=== PATIENT | male | born 1955 | race Caucasian/White ===

== ENCOUNTER → 2018-01-05 12:44 | Outpatient (CLI) | payer MEDICAID, SELFPAY ==
--- NOTE | 2018-01-05 12:46 | RAD_ITS ---
STUDY: X-RAY - RIGHT WRIST REASON FOR EXAM: Wrist pain for 5 months after lifting a heavy object. TECHNIQUE: 3 view(s) of the wrist were obtained. COMPARISON: None. FINDINGS: Normal visualized distal radius and ulna. Normal radiocarpal articulation. Normal distal radioulnar articulation. Normal carpal bones. Normal carpal articulations. Normal carpometacarpal articulation of the thumb. Normal second through fifth carpometacarpal articulations. Normal visualized metacarpal bones. The soft tissue structures are unremarkable. RAD/Wrist min 3 Views IMPRESSION: Normal x-ray examination of the right wrist. Electronically Signed: Balwinder Palomo MD at 13:50 EDT Tel , Service support ,
== END ==
PROVIDERS: Family Provider Family Medicine; PCP Family Medicine; Referring Provider Orthopaedic Surgery; Visit Provider Orthopaedic Surgery
DX: M25.531 Pain in right wrist (principal)
CPT/HCPCS: 73110

== ENCOUNTER 2018-03-05 10:00 | Outpatient (RCR) | payer MEDICAID, SELFPAY ==
--- NOTE | 2018-01-14 12:35 | HP.OTEVAL_ITS ---
Patient's Visit Information ALYX DIALLO is a 62 year old M, referred to Occupational Therapy by Reny Perry DO, with a diagnosis of TFCC tear and ECU tendinitis. Date of Evaluation: 01/14/18 Occupational Therapist: Loulou Dalton - Subjective Subjective: Arrived and noted that original injury was in July when moving large table at [employer]. He has had increased pain in wrist for last 6 months. He noted that he had x-rays to rule out break. Noted that recently had cortisone shot a week ago at Dr. Bocanegra which was first one in wrist to help decrease pain. - Pain Right Wrist 3 Pain Intensity Range: 1, 7 - Objective Objective/Observation: Mild tenderness over ECU when palpated; no edmea noted. Concerns: Insurance does no cover iontophoresis and Pt. would not like to pay out of pocket for this treatment at this time. Phonophoresis maybe alternative if medication would be covered through Pt. insurance. OT looking into this as option. - ROM Forearm: supination R 0-74, L WBL; pronation R 0-81, L WNL Wrist: flexion R 0-90, L 0-93; ext R 0-45, L 0-56 MP: WFL PIP: WFL DIP: WFL ROM Comments: radial dev R 0-15, L 0-15. ulnar dev R 0-35, L 0-25. Mild pain with movements. - Strength Wireworker Supervisor: R 60, L 59 Lateral Pinch: R 16, L 18 Tripod Pinch: R 12, L 13 Tip-to-Tip Pinch: R 8, L 8 - Sensation Sensation Comments: Denies numbness and tingling in B hands. Notes if happens is often due to back being out. 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 Goal:: Alyx to have no more than 1/10 pain with all fx activities 2/3 trials 75% of the time to promote increased ROM and participation in ADL/IADls by d/c. Goal:: Alyx to be (I) to complete proper wrist mechanics and ergonomics to promote increased performance and decreased risk of reinjury 4/5 trials 80% of the time by d/c. Goal:: Alyx to be (I) to return to full use of R wrist and hand for all ADl/IADls 100% of the time to promote (i) by d/c. Goal:: Alyx to be (I) to complete HEp consistently as instructed 4/5 trials 80% of the time to promote increased strength and stability of wrist to help decrease pain and promote fx by d/c. - Rehabilitation General Assessment: Alyx had OT evaluation today 01/14/18. Original injury was in July and noted that recently has cortisone injection to ulna side of wrist after seeing Dr. Perry last week. Injection has helped alleviate symptoms, but further therapy needed to promote increased stability. ROM, and strength of R dominant hand to reduce risk of symptoms returning and increased pain occurring. Ot to work on increased fx of hand to promote returning to PLOF. Rehabilitation Potential: Good - Anticipated Interventions Anticipated Interventions: A/AAROM/PROM, Strengthening, Modalities, Joint Protection/Energy Conservation, Ergonomic Education, Fine Motor Coord/Carlos Manuel, AD L Training, Caregiver Training, Home Program - Visit Plan Frequency: 2-3x /Week Duration: 4 Weeks General Plan: OT to work on ROM, strength, stability of wrist to promote increased ability to complete ADl/IADLs at PLOF and with minimal pain. TEXT: Thank you for the opportunity to evaluate your patient. For Medicare and Medicare HMO plans, please review the plan of care and approve it. It will need to be FAXED BACK to us at [phone] for Medicare purposes. Please let me know if there are questions or concerns regarding this plan of care. Physician Signature: Date:
--- NOTE | 2018-03-05 10:45 | HP.OTDCSUM ---
HP - OT D/C Summary It has been my pleasure to treat YAO DIALLO under orders from Reny Perry DO, for the diagnosis of TFCC tear and ECU tendinitis for a total of 6 visit(s). Please see the following information for a summary of their discharge status. - Overall Improvement % Improvement: 80 - Objective Objective/Function: Completed reassessment on this date of 03/05/18. ROM: Wrist: -flexion: R 0-89, L 0-85. -extension: R 0-45, L 0-60. -radial deviation: R 0-18, L 0-17. -ulnar deviation: R 0-40, l 0-30. - supination: R WNL, L WNL. Strength: marble supervisor from flexed position: R 68, L 68. marble supervisor from extended: R 86, L 80. Lateral: R 19, L 18. Tripod: R 17, L 11. Pincer: R 10, L 8. Denies numbness or tingling. Some pain grimace noted with gripping. He has progressed towards goals. - Goals Patient Goals: Regain Strength, Decrease Pain, Return to Work, Use Hand/Wrist/Arm Normally Again, Sleep Better, Be More Independent in ADLS, Resume Former Household Responsibilities (Cooking,Cleaning,Yard, etc.), Resume Hobbies Goal:: Yao to increase R marble supervisor by 10-15 lbs to promote increased stability and strength of R wrist for ADL/IADls and decrease pain and reinjury by time of d/c. - MEANT Goal:: Yao to have no more than 1/10 pain with all fx activities 2/3 trials 75% of the time to promote increased ROM and participation in ADL/IADls by d/c. Goal:: Yao to be (I) to complete proper wrist mechanics and ergonomics to promote increased performance and decreased risk of reinjury 4/5 trials 80% of the time by d/c. Goal:: Yao to be (I) to return to full use of R wrist and hand for all ADl/IADls 100% of the time to promote (i) by d/c. - MEANT. - He is compelting tasks even if causing pain. Educated to stop and rest when pain occurs. Goal:: Yao to be (I) to complete HEp consistently as instructed 4/5 trials 80% of the time to promote increased strength and stability of wrist to help decrease pain and promote fx by d/c.- MEANT - Plan Plan: Pt. will be d/c'd today. He attended 6 of 8-12 scheduled appointments over the course of 49 days. He is starting to have pain again in R wrist. Pain in general has been variable over the course of treatment. Previously had cortisone shot. Due to increased pain he is to return to doctor. - D/C Information If there are questions or concerns regarding this patient's occupational therapy, please fell free to call me at [phone]. Thank you for the referral of this patient. Sincerely, Loulou Dalton
== END 2018-03-05 19:00 | disposition home or self-care (01) ==
LOC: OT 10:00
PROVIDERS: Family Provider Family Medicine; PCP Family Medicine; Referring Provider Orthopaedic Surgery; Visit Provider Orthopaedic Surgery
DX: S63.591D Other specified sprain of right wrist, subsequent encounter (principal); M65.849 Other synovitis and tenosynovitis, unspecified hand
CPT/HCPCS: 97035; 97110; 97140; 97166; 97168; 97530

== ENCOUNTER → 2019-06-06 10:07 | Outpatient (CLI) | payer MEDICAID, SELFPAY ==
--- NOTE | 2019-06-06 10:08 | MRI_ITS ---
STUDY: MRI RIGHT WRIST WITHOUT CONTRAST REASON FOR EXAM: Right wrist pain extending up forearm, injury in July 2017. TECHNIQUE: Standardized fat and water weighted pulse sequences were obtained in all 3 orthogonal planes. COMPARISON: Radiographs 01/05/2018. FINDINGS: Normal visualized distal radius and ulna. Normal distal radioulnar articulation (DRUJ). Normal triangular fibrocartilaginous complex (TFCC). Normal carpal bones. Normal radiocarpal, intercarpal and midcarpal articulations. Normal pisotriquetral articulation. Normal visualized interosseous scapholunate ligament. Normal extensor tendons. Normal flexor tendons. Normal carpal tunnel with a normal median nerve. Normal carpometacarpal articulation of the thumb. Normal second through fifth carpometacarpal articulations. Normal visualized metacarpal bones. There is no demonstrated soft tissue abnormality. MRI/Upper Ext Joint Only(Routine) IMPRESSION: Unremarkable MRI of the right wrist. Electronically Signed: Balwinder Palomo MD at 12:44 EST Tel , Service support ,
== END ==
PROVIDERS: PCP Family Medicine; Referring Provider Physician Assistant; Visit Provider Physician Assistant
DX: M77.11 Lateral epicondylitis, right elbow (principal); M25.531 Pain in right wrist; S69.81XD Other specified injuries of right wrist, hand and finger(s), subsequent encounter
CPT/HCPCS: 73221

== ENCOUNTER 2021-05-02 16:05 | Outpatient (CLI) | payer MEDICAID, SELFPAY ==
--- NOTE | 2021-05-02 16:06 | MRI_ITS ---
STUDY: MRI RIGHT WRIST WITHOUT CONTRAST REASON FOR EXAM: Ulnar sided right wrist pain, right wrist injury 02/10/2021. TECHNIQUE: Standardized fat and water weighted pulse sequences were obtained in all 3 orthogonal planes. COMPARISON: Radiographs 02/18/2021. FINDINGS: There is a very mild bone contusion of the ulnar styloid process (inversion recovery coronal image 13). Normal distal radius. Normal distal radioulnar articulation (DRUJ). Normal triangular fibrocartilaginous complex (TFCC). There is a very mild bone contusion of the triquetrum (inversion recovery coronal images 11, 12). Otherwise, unremarkable carpal bones. Normal radiocarpal, intercarpal and midcarpal articulations. Normal pisotriquetral articulation. Normal visualized interosseous scapholunate ligament. There is a very small volume of fluid in the sixth dorsal compartment (inversion recovery axial images 21-23). Normal flexor tendons. Normal carpal tunnel with a normal median nerve. Normal carpometacarpal articulation of the thumb. Normal second through fifth carpometacarpal articulations. Normal visualized metacarpal bones. There is a small ossicle adjacent to the ulnar styloid process (gradient coronal image 22). MRI/Upper Ext Joint Only(Routine) IMPRESSION: Very mild bone contusions of the ulnar styloid process and triquetrum. Very mild extensor carpi ulnaris tenosynovitis. Electronically Signed: Balwinder Palomo MD at 11:43 EST ,
== END 2021-05-02 23:59 | disposition short-term general hospital (02) ==
LOC: MRI 16:06
PROVIDERS: PCP Family Medicine; Visit Provider Orthopaedic Surgery
DX: S69.81XS Other specified injuries of right wrist, hand and finger(s), sequela (principal)
CPT/HCPCS: 73221

== ENCOUNTER → 2021-10-04 | Outpatient (CLI) | payer MEDICARE, MEDICAID, SELFPAY ==
[2021-10-04 12:29] LABS: Absolute Lymphocyte Count 1.67 X10^3/uL (0.83-4.51); Absolute Neutrophil Count 4.3 X10^3/uL (2.0-7.7); Basophil# 0.04 X10^3/uL; Basophil% 0.6 % (0-1); Eosinophil# 0.07 X10^3/uL; Eosinophils% 1.1 % (0-5); Hemoglobin 16.2 g/dL (13.0-16.5); Lymphocyte # 1.67 X10^3/ul (0.83-4.51); Lymphocyte % 25.4 % (19-41); Mean Corp Hgb Conc 33.8 g/dL (32-36); Mean Corpuscular Hgb 30.2 pg (27.0-32.0); Mean Corpuscular Volume 89.6 fL (80-94); Mean Platelet Vol. 9.5 fl (6.2-12.0); Monocyte# 0.43 X10^3/uL; Monocyte% 6.5 % (0-10); NRBC Flagged by Analyzer 0 % (0-5); Neutrophil # 4.32 X10^3/uL (2.7-7.7); Neutrophil % 65.6 % (47-70); Platelet Count 235 K/mm3 (150-450); RBC Distribution Width CV 12.8 % (11.6-14.6); RBC Distribution Width SD 41.9 fl (35.1-43.9); Red Blood Count 5.36 M/mm3 (4.6-6.2); White Blood Count 6.6 K/mm3 (4.4-11.0)
[2021-10-04 12:37] LABS: Erythrocyte Sedimentation Rate 12 mm/hr (0-20)
[2021-10-04 13:17] LABS: ALB/GLOB Ratio 1.1 RATIO (0.9-2.4); AST(SGOT) 21 U/L (15-37); Alanine Aminotransfer ALT/SGPT 26 U/L (16-61); Albumin, Serum 3.8 g/dL (3.2-5.0); Alkaline Phosphatase 95 U/L (45-117); Anion Gap 8 (5-15); BUN 14 mg/dL (7-18); CRP < 2.90 mg/L (0.0-3.0); Calcium,Total 9.1 mg/dL (8.5-10.1); Chloride 107 mmol/L (98-107); Creatinine, Serum 0.93 mg/dL (0.70-1.30); EST Glomerular Filtration Rate 86 mL/min (>60); Est Glom Filt Rate - Afr Amer 104 mL/min (>60); Ferritin 110 ng/mL (26-388); Globulin 3.4 g/dL (2.2-4.2); Glucose 95 mg/dL (74-106); LDH 175 U/L (87-241); Protein, Total 7.2 g/dL (6.4-8.2); Sodium Level 139 mmol/L (136-145)
[2021-10-06 16:07] LABS: Endomysial Antibody IgA Negative (Negative)
[2021-10-06 18:07] LABS: Immunoglobulin A 130 mg/dL (61-437); t-Transglutaminase IgA <2 U/mL (0-3)
[2021-10-08 13:07] LABS: Anti-Centromere B Ab <0.2 AI (0.0-0.9); Anti-Chromatin <0.2 AI (0.0-0.9); Anti-Jo <0.2 AI (0.0-0.9); Anti-Scleroderma-70 AB <0.2 AI (0.0-0.9); RNP Ab <0.2 AI (0.0-0.9); SJOGREN'S Anti-SS-A test < 0.2 AI (0.0-0.9); SJOGREN'S Anti-SS-B test < 0.2 AI (0.0-0.9); Smith Ab <0.2 AI (0.0-0.9)
[2021-10-08 16:27] LABS: Anti-dsDNA Ab <1 IU/mL (0-9)
[2021-10-11 00:08] LABS: Albumin 3.8 g/dL (2.9-4.4); Alpha-1-Globulins 0.3 g/dL (0.0-0.4); Alpha-2-Globulins 0.8 g/dL (0.4-1.0); Cytoplasmic Ab (C-ANCA) <1:20 titer (Neg:<1:20); Gamma Globulin 0.6 g/dL (0.4-1.8); Immunoglobulin A 139 mg/dL (61-437); Immunoglobulin G 634 mg/dL (603-1613); Immunoglobulin M 70 mg/dL (20-172); PROEL- TOTAL PROTEIN 6.5 g/dL (6.0-8.5)
[2021-10-11 08:31] LABS: Immunoglobulin E 55 IU/mL (6-495); Perinuclear Ab (P-ANCA) <1:20 titer (Neg:<1:20)
== END | disposition home or self-care (01) ==
PROVIDERS: PCP Family Medicine; Referring Provider Internal Medicine Gastroenterology; Visit Provider Internal Medicine Gastroenterology
DX: R14.2 Eructation (principal); R19.5 Other fecal abnormalities
CPT/HCPCS: 36415; 80053; 82728; 82784; 82785; 83516; 83615; 84165; 85025; 85652; 86140; 86225; 86235; 86255; 86256; 86334

== ENCOUNTER → 2021-10-08 | Outpatient (CLI) | payer MEDICARE, MEDICAID, SELFPAY ==
[2021-10-10 15:08] LABS: Gastrin, Serum 20 pg/mL (0-115)
[2021-10-14 19:52] LABS: Calprotectin, Stool 21 ug/g (0-120); Fats, Neutral Normal (.); Fats, Total Normal (.)
[2021-10-15 13:59] LABS: Giardia Lamblia, Stool EIA Negative (Negative); Pancreatic Elastase, Fecal 338 (>200)
== END | disposition home or self-care (01) ==
PROVIDERS: PCP Family Medicine; Visit Provider Internal Medicine Gastroenterology
DX: R19.5 Other fecal abnormalities (principal); R14.2 Eructation; K58.9 Irritable bowel syndrome, unspecified; R19.7 Diarrhea, unspecified
CPT/HCPCS: 36415; 82274; 82653; 82705; 82941; 83630; 83993; 87177; 87209; 87329; 87506

== ENCOUNTER → 2023-03-10 | Outpatient (CLI) | payer MEDICARE, MEDICAID, SELFPAY ==
--- NOTE | 2023-03-10 14:50 | CT_ITS ---
EXAM: CT RIGHT LOWER EXTREMITY WITHOUT INTRAVENOUS CONTRAST, FOOT CLINICAL INDICATION: PAIN IN RIGHT FOOT TECHNIQUE: Helically acquired images were obtained of the right foot without intravenous contrast. CTDIvol = ( 15.35 ) mGy, DLP = ( 388.30 ) mGycm This CT exam was performed using one or more of the following dose reduction techniques: automated exposure control, adjustment of the mA and/or kV according to patient size, and/or use of iterative reconstruction technique. COMPARISON: No relevant prior studies available. FINDINGS: BONES/JOINTS: Unremarkable. No acute fracture. No subluxation. Normal alignment. Preservation of the joint space. No sclerotic or destructive changes. SOFT TISSUES: Unremarkable. No abnormal contrast enhancement. No radiopaque foreign body. CT/Extremity Lower without Contra IMPRESSION: No acute fracture or subluxation. Electronically Signed: Tapan Zuluaga MD at 23:01 EST ,
== END | disposition home or self-care (01) ==
PROVIDERS: PCP Family Medicine; Referring Provider Physician Assistant Surgical; Visit Provider Physician Assistant Surgical
DX: M79.671 Pain in right foot (principal); S92.151A Displaced avulsion fracture (chip fracture) of right talus, initial encounter for closed fracture
CPT/HCPCS: 73700

== ENCOUNTER → 2023-07-08 | Outpatient (CLI) | payer MEDICARE, MEDICAID, SELFPAY | END | disposition home or self-care (01) | PROVIDERS: PCP Family Medicine; Referring Provider Internal Medicine Gastroenterology; Visit Provider Internal Medicine Gastroenterology | DX: R10.9 Unspecified abdominal pain (principal); K86.89 Other specified diseases of pancreas ==

== ENCOUNTER → 2023-07-10 | Outpatient (CLI) | payer MEDICARE, MEDICAID, SELFPAY ==
[2023-07-10 12:31] LABS: Erythrocyte Sedimentation Rate 3 mm/hr (0-20)
[2023-07-10 13:32] LABS: ALB/GLOB Ratio 1.3 RATIO (0.9-2.4); AST(SGOT) 17 U/L (15-37); Alanine Aminotransfer ALT/SGPT 27 U/L (16-61); Albumin, Serum 3.8 g/dL (3.2-5.0); Alkaline Phosphatase 76 U/L (45-117); Amylase 62 U/L (25-115); Anion Gap 3 (5-15); BUN 13 mg/dL (7-18); BUN/Creat Ratio 13.4 RATIO (10-20); CRP < 2.90 mg/L (0.0-3.0); Chloride 110 mmol/L (98-107); Creatinine, Serum 0.97 mg/dL (0.70-1.30); EST Glomerular Filtration Rate 82 mL/min (>60); Est Glom Filt Rate - Afr Amer 100 mL/min (>60); Glucose 95 mg/dL (74-106); Lipase 36 U/L (13-75); Magnesium 2.3 mg/dL (1.6-2.6); Phosphorus 1.9 mg/dL (2.5-4.9); Potassium 3.9 mmol/L (3.5-5.1); Protein, Total 6.8 g/dL (6.4-8.2); Sodium Level 139 mmol/L (136-145)
[2023-07-13 16:09] LABS: Albumin 4.1 g/dL (2.9-4.4); Alpha-1-Globulins 0.2 g/dL (0.0-0.4); Alpha-2-Globulins 0.6 g/dL (0.4-1.0); Endomysial Antibody IgA Negative (Negative); Gamma Globulin 0.6 g/dL (0.4-1.8); IgG, Quant 651 mg/dL (603-1613); Immunoglobulin A 116 mg/dL (61-437); Immunoglobulin G, Subclass 1 419 mg/dL (248-810); Immunoglobulin G, Subclass 2 185 mg/dL (130-555); Immunoglobulin G, Subclass 3 13 mg/dL (15-102); Immunoglobulin G, Subclass 4 25 mg/dL (2-96); Immunoglobulin M 57 mg/dL (20-172); PROEL- TOTAL PROTEIN 6.4 g/dL (6.0-8.5); t-Transglutaminase IgA <2 U/mL (0-3)
[2023-07-17 05:07] LABS: Beef <0.10 kU/L (Class 0); Chocolate <0.10 kU/L (Class 0); Codfish <0.10 kU/L (Class 0); Corn <0.10 kU/L (Class 0); Egg, Whole <0.10 kU/L (Class 0); Milk (Cow) <0.10 kU/L (Class 0); Mussels <0.10 kU/L (Class 0); Peanut <0.10 kU/L (Class 0); Pork <0.10 kU/L (Class 0); Salmon <0.10 kU/L (Class 0); Shrimp <0.10 kU/L (Class 0); Soybean <0.10 kU/L (Class 0); Tuna <0.10 kU/L (Class 0); Wheat <0.10 kU/L (Class 0)
== END | disposition home or self-care (01) ==
LOC: LAB 11:39
PROVIDERS: PCP Family Medicine; Referring Provider Internal Medicine Gastroenterology; Visit Provider Internal Medicine Gastroenterology
DX: T78.40XA Allergy, unspecified, initial encounter (principal); K86.89 Other specified diseases of pancreas
CPT/HCPCS: 36415; 80053; 82150; 82784; 82787; 83516; 83690; 83735; 84100; 84165; 85652; 86003; 86005; 86140; 86255; 86334

== ENCOUNTER 2023-11-17 10:04 | Day surgery (SDC) | payer MEDICARE, MEDICAID, SELFPAY ==
[2023-11-17] VITALS (8 sets, daily range): BP systolic 110–144; BP diastolic 76–98; PULSE 81–89; RESP 16–18; TEMP 36.1–36.6; O2SAT 93–99; BMI 25.4
[2023-11-17] MEDS: Lactated Ringers 1,000 ML 15 ML IV (10:27)
--- NOTE | 2023-11-17 10:51 | PRE.ANES_ITS ---
ASA Classification* ASA Classification ASA Classification: 3 Assessment & Plan Anesthesia* Anesthesia Assessment Anesthesia Assessment: Discussed sedation and/or anesthesia options, risks, benefits, and alternatives with patient/parents/legal guardian/POA. Questions invited. The patient/parents/legal guardian/POA seems to understand and agrees to proceed with anesthesia plan. Reviewed the physical assessment, medical history, allergy history and patient home medications list prior to surgery/procedure/anesthetic and documented any changes. Performed airway and anesthesia risk assessments. Anesthesia Type Anesthesia Type: MAC History Source History Obtained from:: Patient and Chart Anesthesia Focused Assessment* Temperature: 98 F Pulse Rate: 83 Blood Pressure: 144/93 Respiratory Rate: 17 Pulse Ox: 99 Oxygen Delivery Method: Room Air Airway Assessment Mouth opens: >3 cm Mallampati Score: III Teeth Condition: Intact Neck Range of motion (ROM): Full ROM Pertinent Findings EKG Pertinent Findings:: February 11, 2023. Normal sinus rhythm. ECHO Pertinent Findings:: September 06, 2021. Ejection fraction is 50 to 55%. Bicuspid aortic valve. Right ventricular systolic pressure is 20 mmHg. Consults Pertinent Findings:: February 12, 2012. Dr. JOSE WHITE. Good ejection fraction. Has obstructive sleep apnea. History of palpitations but none recent. Focused Labs Anesthesia Preop lab: CBC WBC 6.8 K/mm3 (4.4-11.0) 07/08/23 15:50 RBC 4.64 M/mm3 (4.6-6.2) 07/08/23 15:50 Hgb 13.4 g/dL (13.0-16.5) 07/08/23 15:50 Hct 40.2 % (40-54) 07/08/23 15:50 Plt Count 206 K/mm3 (150-450) 07/08/23 15:50 CHEMISTRY Potassium 3.9 mmol/L (3.5-5.1) 07/10/23 12:10 Sodium 139 mmol/L (136-145) 07/10/23 12:10 Magnesium 2.3 mg/dL (1.6-2.6) 07/10/23 12:10 Phosphorus 1.9 mg/dL (2.5-4.9) L 07/10/23 12:10 BUN 13 mg/dL (7-18) 07/10/23 12:10 Creatinine 0.97 mg/dL (0.70-1.30) 07/10/23 12:10 Glucose 95 mg/dL (74-106) 07/10/23 12:10 COAG Pre-Assessment Diagnosis/Proposed Procedure Planned Operative Procedure(s): EGD Anesthesia History 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 When Was Last Pacemaker Check QUESTION #4 FULL TEXT: You/Your Family Experience fever (hyperthermia) with Anesthesia Last Oral Intake Last Oral intake: Last Oral Intake NPO since 08:00 11/17/23 10:22 Meds taken in AM with sips of water? 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 Female No 11/11/23 13:26 HX of Motion Sickness No 11/11/23 13:26 HX of N/V After Surgery No 11/11/23 13:26 Non-Smoker Yes 11/11/23 13:26 Duration of Surgery greater No 11/11/23 13:26 than 60 minutes Number of Risk Factors 1 11/11/23 13:26 PONV Score Low Risk 11/11/23 13:26 Height & Weight Height & Weight: Anesthesia: Height & Weight Height 5 ft 8 in 11/17/23 10:22 Weight: 76 kg 11/17/23 10:22 Body Mass Index (BMI) 25.4 11/17/23 10:22 Respiratory Assessment Respiratory Assessment - director of event sales: Respiratory Tract Infection Hx - director of event sales Hx Respiratory Tract Infection No 11/11/23 13:26 STOP Sleep Apnea STOP Sleep Apnea - director of event sales: STOP Sleep Apnea - director of event sales Hx Hypertension No 11/11/23 13:26 Hx Sleep Apnea Yes 11/11/23 13:26 CPAP Yes: NONCOMPLIANT 11/11/23 13:26 BIPAP No 11/11/23 13:26 Do you snore loudly (louder than talking or can be heard Do you often feel tired/ fatigued/ sleepy during daytime? Has anyone observed you stop breathing during sleep? STOP Results Positive 11/11/23 13:26 QUESTION #5 FULL TEXT : Do you snore loudly (louder than talking or can be heard through closed doors)? 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 Specify any problems Hx of Preganancy in last 3 N/A 11/11/23 13:26 Months Nurse Filling Out Transfusion DSCHRIBER 11/11/23 13:26 & Questions: Date: 11/11/23 11/11/23 13:26 Time: 13:28 11/11/23 13:26 Patient unable to answer at this time (ie. confused, unrespo /Reproduction History /Reproductive History - director of event sales: /Reproductive Hx- director of event sales Hx Now No 11/11/23 13:26 Gestational Age (in weeks): EDC: Hx Hx Para Hx Section SAB No 11/11/23 13:26 Active Medications Active Medications: Current Medications Generic Name Dose Route Start Last Admin Trade Name Freq PRN Reason Stop Dose Admin Lactated Ringer's 1,000 mls @ 15 mls/hr 11/17/23 10:30 11/17/23 10:27 IV 15 mls/hr .Q48H MARKO Administration PFSH Medical History Wears glasses Cancer Thyroid disease High cholesterol Difficulty swallowing CPAP (continuous positive airway pressure) dependence Non-smoker Cardiology follow-up encounter History of echocardiogram GERD (gastroesophageal reflux disease) Diverticulitis Colon polyp Chronic back pain Lower abdominal pain Home Medications ?Medication ?Instructions ?Recorded ?Last Taken ?Type pantoprazole 40 mg tablet,delayed 40 mg PO DAILY 05/04/20 11/16/23 History release naproxen sodium 220 mg tablet 220 mg PO Q12H PRN PRN pain 04/19/21 Unknown History (Aleve) loratadine 10 mg tablet 10 mg PO DAILY PRN PRN allergy 09/25/21 Unknown History symptoms [id number] 1 cap PO TID #90 caps 06/09/23 11/16/23 Rx 36,000-114,000-180,000 unit capsule,delay rel (Creon) pitavastatin calcium 4 mg tablet 4 mg PO DAILY 11/05/23 11/16/23 History (Livalo) Allergy/AdvReac Type Severity Reaction Status Date / Time bee venom protein (honey bee) Allergy Intermediate unk Verified 11/17/23 10:17 sulfamethoxazole (From Allergy Agitated Verified 11/17/23 10:17 Bactrim) trimethoprim (From Bactrim) Allergy Agitated Verified 11/17/23 10:17 Surgical History Hx of colonoscopy Hx of esophagogastroduodenoscopy History of tonsillectomy and adenoidectomy H/O prostatectomy Social History Smoking Status: Never smoker alcohol intake: never Review of Systems (Anesthesia) ROS Narrative System reviewed and no additional complaints, except as documented.
--- NOTE | 2023-11-17 11:46 | PCM.HP.BLA ---
History and Physical Date of Admission: 11/17/23 ALYX DIALLO, is a 68 M who presents to the office today for follow up. PMH chronic back pain; colon polyp; diverticular colon; dysphagia; ED; GERD; prostate cancer; IBS; ROBIN. Prior workup: EGD and Colonoscopy in 2014 with no abnormality, but did start protonix 40mg QHS. EGD and Colonoscopy 2018 with precancerous polyps found. EGD WNL. CT abd/pel 4.7.22 hepatic hypodensities, sub-centimeter, stable since last exam. US RUQ 5.11.22 hepatic cyst of no clinical significance. *BGI established 7.1.22 for evaluation of bloating and belching since July that has improved in the last month or two; unsure of what has changed to cause improvement. Denies trigger. Bowels are typically reddish/brown or olive green (without blood) and float, without urgency but occur 1-2 times a day. Bowels have had a recent change in stools with addition of mucous and flaky consistency and falling to the bottom of the toilet. Weight loss of approximately 10lbs since July with PCP performing cancer tumor markers that were WNL. Denies dysphagia difficulty. Biochemical CMP, CBC, ANCA, celiac, CRP, LDH, ESR, NAINA comp, GAME, ALHAJI, ferritin without pertinent abnormalities. Stool testing EP, calprotectin, lactoferrin, fecal fat, O/P, giardia, elastase, occult WNL. C.Difficile stool was formed. OV 9.23.22 Feels he is doing well at this time. Stools have been varying with periodic floating and other days mushy; typically 4 BM a day usually in the morning. Weight has been stable though he would like an increase. Current weight 169lbs and has been stable for several months. start charcoal and simethicone; short course of doxycycline OV 4.3.23 Intermittent lower abdominal discomfort/cramping without identifiable aggravating/alleviating factors. Feels BM is now normal consistency and is no longer floating. OV 10.3.23 BM continue to be regular and without difficulty without abdominal discomfort/cramping. OV 4.3.24- Pt reports he was doing well until a month ago. Started having abdominal discomfort. BM are still normal. Does not give other information about sx stating he needs to talk to the doctor. OV 8.1.24 pt reports that he has trouble expelling gas. Pt reports regular BM; denies blood in the stool. Pt states that his last upper scope was in 2017 and PCP told him it's not a bad idea to have another. Pt continues with creon and pantoprazole. ROS Const Constitutional: No fatigue, fever(s) or weight change ENT ENT: Positive for difficulty swallowing Gastro GI: Positive for bloating, difficulty swallowing, excessive flatus and nausea/dyspepsia; No abdominal pain, belching, change in bowel habits, change in stool character, coffee ground emesis, constipation, cramping, diarrhea, heartburn, feeling full early, incontinent of stools, Vomiting blood/hematemesis, Blood in stool, loose stools, Black,tarry stools, pain with swallowing, vomiting or other Musc Musculoskeletal: Positive for back pain, numbness and tingling; No joint pain Skin Skin: No yellowing of the eye or itchy eyes Neuro Neurology: Positive for numbness and tingling Psych Psychiatric: No anxiety and No depression Endo Endocrine: No fatigue or weight change Aller/Imm Allergy/Immunologic: No itchy eyes Alan/Lymp Hematologic/Lymphatic: No easy bleeding or easy bruising Exam Const General: cooperative and comfortable Nutritional Appearance: average body habitus and well nourished [facility] Head: normal to inspection Ears: hearing grossly normal bilaterally Nose: external nose normal Face and sinus: normal facial exam Mouth: oral mucosae normal Throat: posterior oropharynx normal Eyes General: appearance normal, both eyes and all related structures Neck Neck: normal visual inspection Chest Chest palpation & inspection: normal inspection of the chest and normal palpation of entire chest wall Resp Effort & Inspection: normal respiratory effort Auscultation: Bilateral: Clear to Auscultation Cardio Palpation: normal PMI Rate: regular rate Rhythm: regular rhythm GI Inspection: normal to inspection Auscultation: normal bowel sounds Percussion: normal to percussion Palpation: no hepatosplenomegaly Skin General: no rashes or lesions noted Neuro General: patient alert Extrem General: normal to inspection Psych Affect: normal affect Assessment and Plan Assessment and Plan (1) Abdominal pain: Plan: . He has been getting some intermittent bloating and nausea with frequent belching and passing gas. I told him that the differential diagnosis for that would be bacterial overgrowth, intermittent gastroparesis, inflammation of the upper GI tract because he does have some improvement with digestive enzymes. I will check blood work and likely put him on treatment for bacterial overgrowth. We will also get a gastric emptying study to evaluate the motility of the small bowel. If that test is equivocal or negative then he will need HIDA scan. We will perform an upper endoscopy to evaluate his upper GI tract anatomy. (2) Pancreatic insufficiency: Status: Acute Plan: Patient was having some improvement with pancreatic enzymes. However he said that they did cause him to have diarrhea. I recommended that he only take it once a day with his biggest meal. (3) Inguinal hernia: Status: Acute Plan: He does have a small left inguinal hernia that was reducible. He also seems to have some pain radiating from his left hip into the left groin. Recommend abdominal binder and core exercises. I have examined the patient and the H&P has been reviewed. There are no clinical changes since date of exam.
--- NOTE | 2023-11-17 12:00 | EGD_PTH ---
PATIENT: ALYX DIALLO LOC: EN U#:[id number] AGE/SX: 68/M ROOM: RE11/17/[address]: Dr. Geo Deleon DO : 1955 BED: DIS: 11/17/2023 SPEC #: [id number] RECD: 11/17/23 16:30 STATUS: DELIA NOVA #: [id number] ÁNGEL: 11/17/23 12:[address]: Geo Deleon DEPT: SURGICAL PATHOLOGY RECD BY: Rick Killian ENTERED: 11/18/23 07:07 SP TYPE: EGD BIOPSY OT DR: Dr. Ghulam Anthony MD Tissues: A - Duodenum, NOS B - Gastric mucous membrane C - Esophagus, NOS Procedures: Special Stain Group I Surgery Specimen Level IV Alcian Blue/PAS (control) HEADER OPERATION: EGD with biopsies PRE-OP DIAGNOSIS: Abdominal pain, pancreatic insufficiency TISSUE SUBMITTED: A- Duodenum biopsy, B- Gastric antrum biopsy, C- Distal esophagus biopsy MICROSCOPIC DIAGNOSIS A. Duodenum, biopsy: Fragments of duodenal mucosa, no pathologic diagnosis. B. Gastric antrum, biopsy: Mild gastritis. See microscopic description and comment. C. Distal esophagus, biopsy: Fragments of gastroesophageal mucosa with focal intestinal metaplasia (goblet cell metaplasia) consistent with Swenson's esophagus. Moderate chronic inflammation. Negative for dysplasia. See comment. SREEDHAR/ 11/19/2023 COMMENT B. The results of immunohistochemistry for Helicobacter pylori will be reported separately ([id number]). C. Alcian blue/PAS stain with matched control is used in the evaluation of the specimen. Immunohistochemistry ([id number]) for P53 and Ki-67 will be performed and results will be reported separately. MICROSCOPIC DESCRIPTION Slides are reviewed. B. The specimen shows fragments of gastric mucosa with chronic inflammatory cell infiltrates in the lamina propria consisting of lymphocytes and plasma cells, consistent with mild chronic gastritis. GROSS DESCRIPTION A. Received in fixative is one container labeled with the patient's name and designated Duodenum biopsy. The specimen consists of multiple irregular fragments of light cr soft tissue that in aggregate measure 1.0 x 0.3 x 0.1 cm. The specimen is totally submitted in one cassette. B. Received in fixative is one container labeled with the patient's name and designated Antrum biopsy. The specimen consists of multiple irregular fragments of light cr soft tissue that in aggregate measure 1.0 x 0.3 x 0.1 cm. The specimen is totally submitted in one cassette. C. Received in fixative is one container labeled with the patient's name and designated Distal esophagus biopsy. The specimen consists of two irregular fragments of light cr soft tissue that in aggregate measure 0.8 x 0.3 x 0.1 cm. The specimen is totally submitted in one cassette. Roxanna 11/18/2023 TC:3 CPT:64755g5, 78241
--- NOTE | 2023-11-17 12:00 | IMM_PTH ---
PATIENT: ALYX DIALLO LOC: EN U#:[id number] AGE/SX: 68/M ROOM: RE11/17/[address]: Dr. Geo Deleon DO : 1955 BED: DIS: 11/17/2023 SPEC #: [id number] RECD: 11/18/23 08:10 STATUS: DELIA REQ #: [id number] ÁNGEL: 11/17/23 12:[address]: Geo Deleon DEPT: IMMUNOHISTOCHEMISTRY RECD BY: Moustapha Balbuena ENTERED: 11/18/23 08:11 SP TYPE: IMMUNO OTHR DR: Dr. Ghulam Anthony MD Tissues: B - Gastric mucous membrane C - Esophagus, NOS Procedures: H Pylori (initial) P53 (initial) KI-67 (add) PHYSICIAN & INSTITUTION [place] [id number] SPECIMEN INFORMATION: Tissue Source: B- Gastric antrum biopsy, C- Distal esophagus biopsy Clinical Info: Abdominal pain, pancreatic insufficiency Specimen Number: [id number] B, C CPT code: 23318b4,04501 METHODOLOGY: Deparaffinized sections of prefer/formalin-fixed tissue or PAP/DQ stained slides are incubated with monoclonal/polyclonal antibodies/oligonucleotide probes. Localization is made via biotin free immunoperoxidase method. Appropriate controls are performed and reacted as expected. Results on target cell population are indicated in the following table: RESULTS: ANTIBODY / CLONE RESULT Block B H Pylori (polyclonal) negative Block C P53 (DO-7) negative (null pattern) Ki-67 (30-9) positive, low These tests were developed and their performance characteristics determined by [facility]. They may not have been cleared or approved by the [place]. Food and Drug Administration. The FDA has determined that such clearance or approval is not necessary. The above immunohistochemical/dualISH markers are ordered and reviewed by the Pathologist. INTERPRETATION: B. Gastric antrum, biopsy: Negative for Helicobacter pylori organisms. C. Distal esophagus, biopsy: Negative for dysplasia. SREEDHAR/ 11/20/2023
--- NOTE | 2023-11-17 12:39 | PCM.POST.ANE ---
Anesthesia: Postop Eval I Current Vital Signs Temperature: 97.1 F Pulse Rate: 88 Blood Pressure: 110/82 Respiratory Rate: 18 Pulse Ox: 94 Assessment Airway patent: Yes Spontaneous unlabored respirations: Yes nausea: No Vomiting: No Anesthesia Complication: No Fluid Hydration Crystalloid volume administer (ml): 400 Total IV fluid infused: 400 Progress Note Anesthesia document: Postop Eval 1 completed: Yes
--- NOTE | 2023-11-17 12:46 | OP.CCLET_ITS ---
11/17/2023 Ghulam Anthony Re : Upper GI endoscopy procedure for Yao Motley Dear Raj This procedure was performed on Friday, November 17, 2023. My impressions and recommendations are as follows: Impressions : - Z-line irregular, 40 cm from the incisors. Biopsied. - Chronic gastritis. Biopsied. - No gross lesions in the first portion of the duodenum. Biopsied. Recommendations : - Discharge patient to home. - Resume previous diet. - Continue present medications. - Await pathology results. My findings are described in the full procedure note, which is enclosed. If I can be of further assistance, please feel free to contact me at . Sincerely, Geo Deleon, 11/17/2023 12:45:31 PM This report has been signed electronically.
--- NOTE | 2023-11-17 12:46 | OP.EGD_ITS ---
Patient Name: Yao Motley Procedure Date: 11/17/2023 11:48 AM Date of : 1955 Age: 68 Procedure: Upper GI endoscopy Indications: Epigastric abdominal pain Providers: Geo Deleon DO Medicines: Monitored Anesthesia Care Patient Profile: This is a 68 year old male. Refer to note in patient chart for documentation of history and physical. Patient has symptoms of chronic epigastric abdominal pain. Complications: No immediate complications. Procedure: Pre-Anesthesia Assessment: - Prior to the procedure, a History and Physical was performed, and patient medications and allergies were reviewed. The patient is competent. The risks and benefits of the procedure and the sedation options and risks were discussed with the patient. All questions were answered and informed consent was obtained. Patient identification and proposed procedure were verified by the physician in the pre-procedure area. Mental Status Examination: alert and oriented. Airway Examination: normal oropharyngeal airway and neck mobility. Respiratory Examination: clear to auscultation. CV Examination: normal. Prophylactic Antibiotics: The patient does not require prophylactic antibiotics. Prior Anticoagulants: The patient has taken no anticoagulant or antiplatelet agents except for NSAID medication. ASA Grade Assessment: II - A patient with mild systemic disease. After reviewing the risks and benefits, the patient was deemed in satisfactory condition to undergo the procedure. The anesthesia plan was to use monitored anesthesia care (MAC). Immediately prior to administration of medications, the patient was re-assessed for adequacy to receive sedatives. The heart rate, respiratory rate, oxygen saturations, blood pressure, adequacy of pulmonary ventilation, and response to care were monitored throughout the procedure. The physical status of the patient was re-assessed after the procedure. After obtaining informed consent, the endoscope was passed under direct vision. Throughout the procedure, the patient's blood pressure, pulse, and oxygen saturations were monitored continuously. The Endoscope was introduced through the mouth, and advanced to the second part of duodenum. The upper GI endoscopy was accomplished without difficulty. The patient tolerated the procedure well. Scope In: 12:17:49 PM Scope Out: 12:28:31 PM Total Procedure Duration Time 0 hours 10 minutes 42 seconds Findings: The Z-line was irregular and was found 40 cm from the incisors. Biopsies were taken with a cold forceps for histology. Patchy mild inflammation characterized by congestion (edema) and erythema was found in the gastric body. Biopsies were taken with a cold forceps for histology. Verification of patient identification for the specimen was done. Estimated blood loss was minimal. Biopsies were taken with a cold forceps for Helicobacter pylori testing. Verification of patient identification for the specimen was done. Estimated blood loss was minimal. No gross lesions were noted in the first portion of the duodenum. Biopsies were taken with a cold forceps for histology. Verification of patient identification for the specimen was done. Estimated blood loss was minimal. Impression: - Z-line irregular, 40 cm from the incisors. Biopsied. - Chronic gastritis. Biopsied. - No gross lesions in the first portion of the duodenum. Biopsied. Recommendation: - Discharge patient to home. - Resume previous diet. - Continue present medications. - Await pathology results. Procedure Code(s): --- Professional --- 89066, Esophagogastroduodenoscopy, flexible, transoral; with biopsy, single or multiple CPT copyright 2021 [employer]. All rights reserved. The codes documented in this report are preliminary and upon chief physical therapist review may be revised to meet current compliance requirements. Geo Deleon DO 11/17/2023 12:45:31 PM This report has been signed electronically. Number of Addenda: 0 Note Initiated On: 11/17/2023 11:48 AM
--- NOTE | 2023-11-17 12:47 | POSTOPAN2_ITS ---
Anesthesia Postop Eval I Sum Postop Eval Completion status Anesthesia document: Postop Eval 1 completed: Yes Anesthesia Postop Eval I Summary Anesthesia Postop Eval I Summary: Anesthesia Postop Eval I: Assessment Summary Airway patent Yes 11/17/23 12:39 HAND CANDY [email or web address] Spontaneous unlabored Yes 11/17/23 12:39 HAND CANDY [email or web address] respirations Mental status nausea No 11/17/23 12:39 HAND CANDY [email or web address].[email or web address] Vomiting No 11/17/23 12:39 HAND CANDY [email or web address] Anesthesia Postop Eval I: Fluid Summary Crystalloid volume administer 400 11/17/23 12:39 HAND CANDY [email or web address].CSIR (ml) Colloids volume administered ( ml) Blood Product volume administered (ml) Total IV fluid infused 400 11/17/23 12:39 HAND CANDY [email or web address].CSIR Anesthesia Postop Eval I: Summary Notes Anesthesia Complication No 11/17/23 12:39 HAND CANDY [email or web address].[email or web address] Anesthesia Complication Comment: Post-operative progress note Anesthesia: Postop Eval II Evaluation Mental status: Awake Pain Level: 0 nausea: No Vomiting: No
--- NOTE | 2023-11-17 12:47 | PCM.POSTANE2 ---
Anesthesia Postop Eval I Sum Postop Eval Completion status Anesthesia document: Postop Eval 1 completed: Yes Anesthesia Postop Eval I Summary Anesthesia Postop Eval I Summary: Anesthesia Postop Eval I: Assessment Summary Airway patent Yes 11/17/23 12:39 [email or web address] [email or web address] Spontaneous unlabored Yes 11/17/23 12:39 SKEIN [email or web address] respirations Mental status nausea No 11/17/23 12:39 SKEIN DYER.CSIR Vomiting No 11/17/23 12:39 SKEIN [email or web address] Anesthesia Postop Eval I: Fluid Summary Crystalloid volume administer 400 11/17/23 12:39 SKEIN [email or web address].CSIR (ml) Colloids volume administered ( ml) Blood Product volume administered (ml) Total IV fluid infused 400 11/17/23 12:39 SKEIN [email or web address] Anesthesia Postop Eval I: Summary Notes Anesthesia Complication No 11/17/23 12:39 SKEIN [email or web address].CSIR Anesthesia Complication Comment: Post-operative progress note Anesthesia: Postop Eval II Evaluation Mental status: Awake Pain Level: 0 nausea: No Vomiting: No
== END 2023-11-17 13:14 | disposition home or self-care (01) ==
LOC: EN 10:05 → AC 10:07
PROVIDERS: PCP Family Medicine; Referring Provider Family Medicine; Visit Provider Internal Medicine Gastroenterology
PROC: 0DJ08ZZ Inspection of Upper Intestinal Tract, Via Natural or Artificial Opening Endoscopic (ICD-10-PCS; CPT 43235; principal; 2023-11-17 11:55)
DX: K29.50 Unspecified chronic gastritis without bleeding (principal); Z86.010 Personal history of colon polyps; R20.0 Anesthesia of skin; K86.89 Other specified diseases of pancreas; K40.90 Unilateral inguinal hernia, without obstruction or gangrene, not specified as recurrent
CPT/HCPCS: 43239; 88305; 88312; 88341; 88342; J7120; J2405

== ENCOUNTER → 2024-12-06 | Outpatient (CLI) | payer MEDICARE, MEDICAID, SELFPAY ==
--- NOTE | 2024-12-06 13:21 | MRI_ITS ---
PROCEDURE: UPPER EXT JOINT ONLY W/WO CONT 12/06/2024 REASON FOR EXAM: PAIN IN RIGHT SHOULDER, RULE OUT OSTEOCHONDROMA TECHNIQUE: T1, T2, stir, postcontrast T1 fat-sat: MRI right shoulder with and without contrast CONTRAST: 15 cc Clariscan COMPARISON: November 02 2024 FINDINGS: There is a 1.0 x 1.1 by 1.0 cm intermediate T2, intermediate to high T1 precontrast, intermediate postcontrast, nonenhancing osteochondroma at the lateral aspect of the proximal humeral diaphysis with benign features, unchanged. Marrow: There is no bony contusion. AC joint: The AC joint is aligned without evidence of separation. There is a type 2 acromion. Rotator cuff: There is moderate distal supraspinatus, infraspinatus, and subscapularis tendinopathy without full-thickness tear or retraction. The teres minor appears intact. Labrum: The labrum appears intact. Biceps tendon: The biceps tendon is present in the biceps tendon groove, with intact anchors. Effusion: There is a moderate joint effusion. There is fluid in the subacromial subdeltoid bursa, with bursitis. MRI/Upper Ext Joint Only W/WO Cont IMPRESSION: There is a 1.0 x 1.1 by 1.0 cm intermediate T2, intermediate to high T1 precont rast, intermediate postcontrast, nonenhancing osteochondroma at the lateral aspect of the proximal humeral diaphysis with damon ign features, unchanged. There is moderate distal supraspinatus, infraspinatus, and subscapularis tendin opathy without full-thickness tear or retraction. There is a moderate joint effusion. There is fluid in the subacromial subdeltoid bursa, with bursitis. Reading Location: [facility]
--- OUTSIDE RECORDS SUMMARY | 2024-12-06 22:34 | XMS RPT_ITS | CCD ---
Author Organization [facility] Care Team Providers Care Child Life Specialist Name Role Phone LIAN ANTHONY MD Primary Care Physician JEREMÍAS NUÑEZ MD, JR Primary Care Physician [phone] Dr. Lian Anthony Primary Care Provider [phone] Dr. Lian Anthony Referring Provider [phone] Dr. Geo Deleon Attending Provider [phone] JEREMÍAS NUÑEZ MD, JR Primary Care Physician [phone] Tarikt, Cara L Primary Care Provider GROSS DO, ADAM Referring Unavailable GROSS DO ADAM Attending Unavailable SWIHART, CARA L Primary Care Unavailable GROSS DO, ADAM Referring Unavailable SWIHART, CARA L Primary Care Unavailable SWIHART, CARA L Primary Care Unavailable GROSS DO, ADAM Referring Unavailable GROSS DO, ADAM Attending Unavailable JEREMÍAS NUÑEZ JR Referring Unavai lable SWIAHSANT, CARA L Primary Care Unavailable Dr. Lian Anthony Primary Care Provider Dr. Lian Anthony Referring Provider [phone] Dr. Geo Deleon Attending Provider [phone] Dr. Lian Anthony Primary Care Provider Dr. Lian Anthony Referring Provider [phone] [address] Guardado Attending Provider [phone] LIAN ANTHONY MD Attending Unavailable LIAN ANTHONY MD Primary Care Unavailable LIAN ANTHONY MD Attending Unavailable LIAN ANTHONY MD Primary Care Unavailable LIAN ANTHONY MD Primary Care Unavailable SREEKANTH GIPSON Attending Unavailable LIAN ANTHONY MD Attending Unavailable LIAN ANTHONY MD Primary Care Unavailable STEPHANIA JORDAN DPM Attending Unavailable LIAN ANTHONY MD Primary Care Unavailable LIAN ANTHONY MD Attending Unavailable LIAN ANTHONY MD Primary Care Unavailable BOBBY CROUCH Attending LIAN Meadows MD Primary Care Unavailable BOBBY CROUCH Attending LIAN Meadows MD Primary Care Unavailable LIAN ANTHONY MD Attending Unavailable LIAN ANTHONY MD Primary Care Unavailable LIAN ANTHONY MD Attending Unavailable LIAN ANTHONY MD Primary Care Unavailable LIAN ANTHONY MD Primary Care Unavailable LIAN ANTHONY MD Attending Unavailable Lian Anthony MD Primary Care Provider LIAN ANTHONY Primary Care Unavailable ADAM VANN Attending Unavailable Raj TURNER, Dr. Parmar Primary Care Provider Dr. Lian Anthony MD Referring Provider [phone] Dr. Waqar Woodruff DO Attending Provider Dr. Bull Price MD Attending Provider [phone] Torsten Lindo MD Attending Provider [phone] LIAN ANTHONY MD Primary Care Unavailable LIAN ANTHONY MD Attending Unavailable LIAN ANTHONY MD Attending Unavailable LIAN ANTHONY MD Primary Care Unavailable UMESH BOYCE MD Attending Unavailable LIAN ANTHONY MD Primary Care Unavailable LIAN ANTHONY MD Attending Unavailable LIAN ANTHONY MD Primary Care Unavailable WAQAR WOODRUFF DO Attending Unavailable LIAN ANTHONY MD Primary Care Unavailable LIAN ANTHONY MD Attending Unavailable LIAN ANTHONY MD Primary Care Unavailable BOBBY CROUCH Attending LIAN Meadows MD Primary Care Unavailable Torsten Lindo Attending Unavailable Lian Anthony Referring Unavailable Lian Anthony Primary Care Unavailable Waqar Woodruff Attending Unavailable Lian Anthony Referring Unavailable Lina Anthony Primary Care Unavailable Lian Anthony Primary Care Unavailable Bull Price Attending Unavailable Waqar Woodruff Attending Unavailable Lian Anthony Primary Care Unavailable Lian Anthony Referring Unavailable Torsten Lindo Attending Unavailable Torsten Lindo Referring Unavailable Lian Anthony Primary Care Unavailable Geo Deleon Attending Unavailable Lian Anthony Primary Care Unavailable Lian Anthony Referring Unavailable Torsten Lindo Attending Unavailable Lian Anthony Referring Unavailable Lian Anthony Primary Care Unavailable Bull Price Attending Unavailable Lian Anthony Primary Care Unavailable Allergies Allergy Classification Reported Allergen(s) Allergy Type Date of Onset Reaction(s) Facility Anticholinergics (1 source) Dicyclomine; Translations: [dicyclomine] Drug Allergy Dizziness (finding) [facility] Bee/Wasp/Ant Venom (1 source) Bee/Wasp/Ant venom Substance Allergy [facility] cyclobenzaprine (1 source) cyclobenzaprine; Translations: [cyclobenzaprine] Drug Allergy Flushed complexion (finding) [facility] Dust (1 source) Dust Substance Allergy Rhinitis (disorder) [facility] Sulfamethoxazole / Trimethoprim (1 source) Sulfamethoxazole / Trimethoprim; Translations: [sulfamethoxazole-t rimethoprim] Drug Allergy Feeling agitated (finding) [facility] (20 sources) Bee/Wasp/Ant venom Allergy to substance [facility] Work Phone: (20 sources) Dust Allergy to substance Rhinitis (disorder) [facility] Work Phone: (20 sources) Sulfamethoxazole / Trimethoprim; Translations: [sulfamethoxazole-t rimethoprim] Drug Allergy Feeling agitated (finding) [facility] Work Phone: (20 sources) Dicyclomine; Translations: [dicyclomine] Drug Allergy Dizziness (finding) [facility] Work Phone: (6 sources) Sulfamethoxazole Drug Allergy 09-26-19 22 [facility] (6 sources) Trimethoprim Drug Allergy 09-26-19 22 [facility] (6 sources) bee venom protein (honey bee) Allergy to substance 09-26-19 22 [facility] (20 sources) cyclobenzaprine; Translations: [cyclobenzaprine] Drug Allergy Flushed complexion (finding) [facility] (5 sources) Bee Sting; Translations: [BEE STING] Propensity to adverse reactions 03-26-20 [facility] Work Phone: (1 source) Sulfamethoxazole Drug Allergy 11-15-19 [facility] (1 source) Trimethoprim Drug Allergy 11-15-19 [facility] (1 source) bee venom protein (honey bee) Drug allergy (disorder) 11-15-19 [facility] Medications Current Medications Medication Drug Class(es) Dates Sig (Normalized) Sig (Original) amylase 085358 unt / lipase 60490 unt / protease [id number] unt delayed release oral capsule (20 sources) Start: 04-02-2022 End: 06-09-2023 take 1 capsule by mouth three times daily Creon 36,000 units oral delayed release capsule 1 cap(s), Oral, TID, # 90 cap(s), 0 Refill(s) Start Date: 01/15/23 Status: Ordered Medication Dispense Status: Completed Quantity: 90.0 Unit: cap(s) Total Allowed Fills: 1 Fills Dispensed: 0 calcium carbonate 1500 mg / cholecalciferol 800 unt oral tablet (2 sources) Vitamin D Start: 09-11-2022 End: 12-10-2022 take 1 tablet by mouth once daily Caltrate 600 + D oral tablet Dose = 1 tab(s), Oral, qDay, # 90 tab(s), 0 Refill(s), Pharmacy: [facility] #[id number], 172.5, cm, 09/11/22 15:01:00 EDT, Height Start Date: 09/11/22 Stop Date: 12/10/22 Status: Ordered dexamethasone 2 mg oral tablet (1 source) Corticosteroid Start: 10-03-2022 End: 10-10-2022 dexAMETHasone 2 mg oral tablet Dose : 2 mg = 1 tab(s), Oral, qDay, X 7 day(s), # 7 tab(s), 0 Refill(s), 10/10/22 11:29:00 EDT, Pharmacy: [facility] #[id number], Medicare annual wellness visit, subsequent Hyperlipidemia, 172.5, cm, 10/03/22 10:26:00 EDT, Height Start Date: 10/03/22 Stop Date: 10/10/22 Status: Ordered Dibucaine (1 source) Standardized Chemical Allergen Start: 05-19-2022 Dibucaine 1% topical ointment Apply 1 ronaldo, Topical, qDay, # 45 gram(s), 0 Refill(s), [facility]acy: [facility] #[id number], 172.5, cm, 04/11/22 9:19:00 EST, Height, 76.3 Start Date: 05/19/22 Status: Ordered dicyclomine hydrochloride 10 mg oral capsule (1 source) Anticholinergic Start: 08-06-2021 End: 09-05-2021 dicyclomine 10 mg oral capsule Dose : 10 mg = 1 cap(s), Oral, qDay, # 30 cap(s), 0 Refill(s), [facility]: [facility] [facility] Weight loss, 173.3, cm, 08/06/21 9:47:00 EDT, Height Start Date: 08/06/21 Stop Date: 09/05/21 Status: Ordered famotidine 20 mg oral tablet (3 sources) Histamine-2 Receptor Antagonist Start: 06-25-2022 Pepcid 20 mg oral tablet Dose : 20 mg = 1 tab(s), Oral, qDay, # 90 tab(s), 0 Refill(s), Pharmacy: [facility] #[id number], External hemorrhoid, 172.5, cm, 06/25/22 11:36:00 EDT, Height, kg, 06/25/22 11:36:00 EDT, Dosing Weight Start Date: 06/25/22 Status: Ordered Start: 05-19-2022 End: 05-26-2022 Pepcid 20 mg oral tablet Dos e : 20 mg = 1 tab(s), Oral, qDay, # 7 tab(s), 0 Refill(s), [facility] #[id number], External hemorrhoid, 172.5, cm, 05/19/22 9:52:00 EST, Height Start Date: 05/19/22 Stop Date: 05/26/22 Status: Ordered hydrocortisone acetate 25 mg/ml / pramoxine hydrochloride 10 mg/ml rectal cream (1 source) Corticosteroid Start: 07-17-2023 End: 08-07-2023 hydrocortisone-pramoxine 2.5%-1% rectal cream Dose = 1 ronaldo, Rectal, TID, PRN Itching itching, X 7 day(s), # 30 gram(s), 2 Refill(s), [facility]: [facility] #[id number], Actinic keratosis Hypercholesterolemia, 174, cm, 07/17/23 9:28:00 EDT, Height, kg, 07/17/23 9:28:00 EDT, Dosing Weight Start Date: 07/17/23 Stop Date: 08/07/23 Status: Ordered ibuprofen 200 mg oral tablet (1 source) Nonsteroidal Anti-inflammatory Drug Start: 11-14-2024 take 2 tablets by mouth every six hours as needed Ibuprofen 200 mg tablet Active 400 mg PO EVERY 6 HOURS as needed November 14, 2024 12:00am lipase/protease/am ylase (CREON 10 ORAL) (2 sources) take 1 tablet by mouth three times daily lipase/protease/amylase (CREON 10 ORAL) Take 1 tablet by mouth three times a day. Active take 1 tablet by zuleika th three times daily lipase/protease/amylase (CREON 10 ORAL) Take 1 tablet by mouth three times a day. 0 Active Comment on above: Take 1 tablet by zuleika th three times a day. loratadine 10 mg oral tablet (20 sources) Start: 02-19-2021 End: 05-07-2023 take 1 tablet by mouth once daily as needed Loratadine 10 mg tablet Active 10 mg PO DAILY NEEDED as needed for allergy symptoms September 25, 2021 12:00am Comment on above: Take 1 tablet by zuleika th as needed. nutritional supplement (7 sources) Start: 10-05-2023 nutritional supplement Beet chews, 0 Refill(s) Start Date: 10/05/23 Status: Ordered Medication Dispense Status: Completed Total Allowed Fills: 1 Fills Dispensed: 0 Start: 10-05-2023 nutritional mcconnell pplement Beet chews, 0 Refill(s) Start Date: 10/05/23 Status: Ordered Repeat number: 1 Start: 10-05-2023 nutritional mcconnell pplement Beet chews, 0 Refill(s) Start Date: 10/05/23 Status: Ordered omeprazole 40 mg delayed release oral capsule (9 sources) Proton Pump Inhibitor Start: 11-24-2023 End: 09-20-2024 omeprazole 40 mg oral delayed release capsule Dose : 80 mg = 2 cap(s), Oral, qDay, # 60 cap(s), 0 Refill(s) Start Date: 11/25/23 Status: Ordered Medication Dispense Status: Completed Quantity: 60.0 Unit: cap(s) Total Allowed Fills: 1 Fills Dispensed: 0 pitavastatin calcium 4 mg oral tablet (20 sources) HMG-CoA Reductase Inhibitor Start: 11-03-2023 Livalo 4 mg oral tablet Dose : 4 mg = 1 tab(s), Oral, qDay, # 30 tab(s), 0 Refill(s), Pharmacy: [facility] #[id number], 174, cm, 10/22/23 14:24:00 EDT, Height, kg, 10/22/23 14:24:00 EDT, Dosing Weight Start Date: 11/03/23 Status: Ordered Medication Dispense Status: Completed Quantity: 30.0 Unit: tab(s) Total Allowed Fills: 1 Fills Dispensed: 0 Start: 09-01-2023 take 1 tablet by mouth once Li valo 2 mg oral tablet 120 EA, 0 Refill(s), take 2 tablets by mouth EVERY THURSDAY, THURSDAY, AND THURSDAY, AND ONE TABLET ON ALL OTHER DAYS, 0 Refill(s) Start Date: 09/01/23 Status: Ordered Start: 02-10-2023 Livalo 4 mg or al tablet Dose : 4 mg = 1 tab(s), Oral, Daily, # 90 tab(s), 3 Refill(s), [facility]: [facility] #[id number], 174, cm, 02/10/23 9:22:00 EST, Height, kg, 02/10/23 9:22:00 EST, Dosing Weight Start Date: 02/10/23 Status: Ordered Start: 01-20-2023 Livalo 2 mg or al tablet See Instructions, 2 tab(s) Oral Thu/Thu/Thu 1 tab Oral /Th/Sat/ Sun, # 120 tab(s), 3 Refill(s), [facility]: [facility] #[id number], Hyperlipidemia, 174.5, cm, 01/15/23 10:58:00 EDT, Height, kg, 01/15/23 10:58:00 EDT, Dosing Weight Start Date: 01/20/23 Status: Ordered Start: 10-03-2022 Livalo 2 mg or al tablet Dose : 2 mg = 1 tab(s), Oral, Mon/Thu/Fri, Please relay to insurance that patient has been prescribed this medication due to an intolerance to statin medications., # 90 tab(s), 3 Refill(s), Pharmacy: [facility] #[id number], Hyperlipidemia, 172.5, cm, 10/03/22 10:26:00 EDT, Height, kg, 10/03/22 10:26:00 EDT, Dosing Weight Start Date: 10/03/22 Status: Ordered Start: 04-11-2022 End: 07-10-2022 Livalo 2 mg oral tablet Dose : 2 mg = 1 tab(s), Oral, Daily, Please relay to insurance that patient has been prescribed this medication due to an intolerance to statin medications., # 30 tab(s), 2 Refill(s), Pharmacy: [facility] #[id number], Hyperlipidemia, 172.5, cm, 04/11/22 9:19... Start Date: 04/11/22 Stop Date: 07/10/22 Status: Ordered Start: 08-20-2021 Livalo 1 mg or al tablet Dose : 1 mg = 1 tab(s), Oral, Daily, # 90 tab(s), 3 Refill(s), [facility]acy: [facility] [facility] adult exam Hyperlipidemia, 173.3, cm, 08/20/21 10:24:00 EDT, Height Start Date: 08/20/21 Status: Ordered take 4 tablets by [facility] once daily pitavastatin (LIVALO) 1 mg tablet Take 4 mg by mouth once daily. Active Comment on above: Take 1 mg by mouth o nce daily. Take 4 mg by mouth o nce daily. Probiotic (7 sources) Start: 10-05-2023 Probiotic 0 Refill(s) Start Date: 10/05/23 Status: Ordered Medication Dispense Status: Completed Total Allowed Fills: 1 Fills Dispensed: 0 Start: 10-05-2023 Probiotic 0 Re fill(s) Start Date: 10/05/23 Status: Ordered Repeat number: 1 Start: 10-05-2023 Probiotic 0 Re fill(s) Start Date: 10/05/23 Status: Ordered propranolol hydrochloride 10 mg oral tablet (17 sources) beta-Adrenergic Leela Start: 05-20-2022 propra nolol 10 mg oral tablet Dose : 10 mg = 1 tab(s), Oral, qDay, # 90 tab(s), 3 Refill(s), Pharmacy: [facility] #[id number], Systolic murmur Mitral valve prolapse, 172.5, cm, 05/19/22 9:52:00 EST, Height, kg, 05/19/22 9:52:00 EST, Dosing Weight Start Date: 05/20/22 Status: Ordered Start: 12-06-2021 End: 03-06-2022 propranolol 10 mg oral table t Dose : 10 mg = 1 tab(s), Oral, qDay, # 90 tab(s), 0 Refill(s), Pharmacy: [facility] #[id number], Systolic murmur Mitral valve prolapse, 172.7, cm, 12/06/21 11:29:00 EDT, Height, kg, 12/06/21 11:29:00 EDT, Dosing Weight Start Date: 12/06/21 Stop Date: 03/06/22 Status: Ordered Start: 10-09-2021 End: 11-08-2021 propranolol 10 mg oral table t Dose : 10 mg = 1 tab(s), Oral, qDay, # 30 tab(s), 0 Refill(s), Pharmacy: [facility] Systolic murmur Mitral valve prolapse, 173.3, cm, 09/12/21 10:35:00 EDT, Height, kg, 09/12/21 10:35:00 EDT, Dosing Weight Start Date: 10/09/21 Stop Date: 11/08/21 Status: Ordered Comment on above: Take 10 mg by mouth once daily. sucralfate 100 mg/ml oral suspension (1 source) Aluminum Complex Start: 11-07-2022 End: 12-07-2022 take 1 dose by mouth once daily at bedtime Carafate 1 g/10 mL oral suspension Dose : 1 gram(s) = 10 mL, Oral, qHS, # 300 mL, 0 Refill(s), Pharmacy: [facility] #[id number], Left-sided back pain Esophageal Reflux, 172.5, cm, 11/07/22 10:24:00 EDT, Height, kg, 11/07/22 10:24:00 EDT, Dosing Weight Start Date: 11/07/22 Stop Date: 12/07/22 Status: Ordered Vitamin D2 50 mcg (2000 intl units) oral capsule (2 sources) Start: 10-03-2022 End: 01-01-2023 Vitamin D2 50 mcg (2000 intl units) oral capsule Dose : 50 mcg = 1 cap(s), Oral, qDay, with food, # 90 cap(s), 0 Refill(s), [facility][id number], Medicare annual wellness visit, subsequent Low vitamin D level, 172.5, cm, 10/03/22 10:26:00 EDT, Height Start Date: 10/03/22 Stop Date: 01/01/23 Status: Ordered Vitamin D3 1250 mcg (50,000 intl units) oral capsule (8 sources) Start: 06-25-2022 Vitamin D3 1250 mcg (50,000 intl units) oral capsule Dose : 1,250 mcg = 1 cap(s), Oral, qWeek, # 13 cap(s), 3 Refill(s), Pharmacy: [facility] #[id number], 172.5, cm, 06/25/22 11:36:00 EDT, Height, kg, 06/25/22 11:36:00 EDT, Dosing Weight Start Date: 06/25/22 Status: Ordered Start: 08-07-2021 Vitamin D3 125 0 mcg (50,000 intl units) oral capsule Dose : 1,250 mcg = 1 cap(s), Oral, qWeek, # 12 cap(s), 0 Refill(s), [facility] 173.3, cm, 08/06/21 9:47:00 EDT, Height Start Date: 08/07/21 Status: Ordered Completed/Discontinued Medications Medication Drug Class(es) Dates Sig (Normalized) Sig (Original) aspirin 81 mg chewable tablet (10 sources) Platelet Aggregation Inhibitor, Nonsteroidal Anti-inflammatory Drug Start: 02-18-2021 End: 11-05-2023 take 1 tablet by mouth once daily Aspirin 81 mg tablet,chewable Discontinued 81 mg PO DAILY February 18, 2021 1:00am November 05, 2023 2:31pm Start: 08-20-2020 aspirin 81 mg oral delayed release tablet Dose : 81 mg = 1 tab(s), Oral, qDay, # 90 tab(s), 2 Refill(s), [facility]: [facility] Cervical radiculitis Tinnitus, 174.7, cm, 08/20/20 8:41:00 EDT, Height, kg, 08/20/20 8:41:00 EDT, Dosing Weight Start Date: 08/20/20 Status: Ordered atorvastatin 10 mg oral tablet (3 sources) HMG-CoA Reductase Inhibitor Start: 12-06-2021 End: 03-18-2022 Lipitor 10 mg oral tablet Dose : 10 mg = 1 tab(s), Oral, Thu/Thu/Thu/Thu, Pt to taking qhs on Mondays, Tuesdays, Wednesdays, and Fridays., # 18 tab(s), 1 Refill(s), [facility]: [facility] #[id number], Hypercholesterolemia, 172.7, cm, 01/17/22 10:46:00 EDT, Height, kg, 01/17/22 10:46:00... Start Date: 01/17/22 Stop Date: 03/18/22 Status: Ordered Start: 11-08-2021 take 1 tablet by zuleika th once daily at bedtime Lipitor 10 mg oral tablet See Instructions, 1 tab(s) Oral qhs on Mondays and Fridays., # 8 tab(s), 1 Refill(s), [facility]: [facility] #[id number], Hypercholesterolemia, 174.5, cm, 11/08/21 11:40:00 EDT, Height Start Date: 11/08/21 Status: Ordered Calcium (17 sources) Phosphate Binder, Calcium Start: 10-03-2022 End: 01-01-2023 take 1 tablet by mouth once daily Calcium 600+D oral tablet Dose = 1 tab(s), Oral, Daily, # 90 tab(s), 0 Refill(s), [facility]: [facility] #[id number], Medicare annual wellness visit, subsequent Right hip pain, 172.5, cm, 10/03/22 10:26:00 EDT, Height Start Date: 10/03/22 Stop Date: 01/01/23 Status: Ordered Medication Dispense Status: Completed Quantity: 90.0 Unit: tab(s) Total Allowed Fills: 1 Fills Dispensed: 0 Indications: Encounter for general adult medical examination without abnormal findings; Pain in right hip; Start: 10-03-2022 End: 01-01-2023 take 1 tablet by mouth once daily Calcium 600+D oral tablet Dose = 1 tab(s), Oral, Daily, # 90 tab(s), 0 Refill(s), [facility]: [facility][id number], Medicare annual wellness visit, subsequent Right hip pain, 172.5, cm, 10/03/22 10:26:00 EDT, Height Start Date: 10/03/22 Stop Date: 01/01/23 Status: Ordered Quantity: 90.0 Unit: tab(s) Repeat number: 1 Indications: Encounter for general adult medical examination without abnormal findings; Pain in right hip; Start: 10-03-2022 End: 01-01-2023 take 1 tablet by mouth once daily Calcium 600+D oral tablet Dose = 1 tab(s), Oral, Daily, # 90 tab(s), 0 Refill(s), [facility]: [facility] #[id number], Medicare annual wellness visit, subsequent Right hip pain, 172.5, cm, 10/03/22 10:26:00 EDT, Height Start Date: 10/03/22 Stop Date: 01/01/23 Status: Ordered cephalexin 250 mg oral capsule (1 source) Cephalosporin Antibacterial Start: 12-06-2021 End: 12-16-2021 cephalexin 250 mg oral capsule Dose : 250 mg = 1 cap(s), Oral, QID, # 40 cap(s), 0 Refill(s), [facility]: [facility] #[id number], Bee sting, 172.7, cm, 12/06/21 11:29:00 EDT, Height, 75 Start Date: 12/06/21 Stop Date: 12/16/21 Status: Ordered diclofenac sodium 0.01 mg/mg topical gel (20 sources) Nonsteroidal Anti-inflammatory Drug Start: 10-06-2023 End: 10-16-2023 apply 2 doses topically once daily Voltaren 1% topical gel 2 = gram(s), Topical, qDay, # 100 gram(s), 0 Refill(s), [facility]: [facility] #[id number], 174, cm, 10/05/23 10:09:00 EDT, Height, 75.4, kg, 10/05/23 10:09:00 EDT, Dosing Weight Start Date: 10/06/23 Stop Date: 10/16/23 Status: Ordered Medication Dispense Status: Completed Quantity: 100.0 Unit: g Total Allowed Fills: 1 Fills Dispensed: 0 Start: 09-11-2022 End: 09-21-2022 Voltaren 1% topical gel 2 = gram(s), Topical, qDay, # 100 gram(s), 0 Refill(s), [facility]: [facility] #[id number], 172.5, cm, 09/11/22 15:01:00 EDT, Height, 76.9, kg, 09/11/22 15:01:00 EDT, Dosing Weight Start Date: 09/11/22 Stop Date: 09/21/22 Status: Ordered Start: 09-11-2022 End: 10-01-2022 diclofenac sodium 50 mg oral delayed release tablet Dose : 50 mg = 1 tab(s), Oral, Every other day, # 10 tab(s), 0 Refill(s), Pharmacy: [facility] #[id number], 172.5, cm, 09/11/22 15:01:00 EDT, Height Start Date: 09/11/22 Stop Date: 10/01/22 Status: Ordered Start: 11-19-2021 End: 11-29-2021 Voltaren 1% topical gel 2 = gram(s), Topical, qDay, # 100 gram(s), 0 Refill(s), [facility] #[id number], 172.7, cm, 11/18/21 10:29:00 EDT, Height, 76.9 Start Date: 11/19/21 Stop Date: 11/29/21 Status: Ordered docusate sodium 100 mg oral capsule (3 sources) Start: 05-19-2022 End: 06-02-2022 Colace 100 mg oral capsule Dose : 100 mg = 1 cap(s), Oral, qDay, PRN as needed for constipation, # 14 cap(s), 0 Refill(s), [facility]: [facility] #[id number], External hemorrhoid, 172.5, cm, 05/19/22 9:52:00 EST, Height Start Date: 05/19/22 Stop Date: 06/02/22 Status: Ordered doxycycline hyclate 100 mg oral capsule (7 sources) Tetracycline-class Drug Start: 12-27-2021 End: 11-05-2023 take 1 capsule by mouth twice daily Doxycycline Hyclate 100 mg capsule Discontinued 100 mg PO TWICE A DAY 60 1 July 09, 2023 1:51pm November 05, 2023 2:31pm [id number] 0.3 ml EPINEPHrine 1 mg/ml auto-injector (12 sources) alpha-Adrenergic Agonist, beta-Adrenergic Agonist, Catecholamine Start: 07-21-2024 EpiPen 2-Tushar 0.3 mg injectable kit Dose : 0.3 mg =, Subcutaneous, AsDirected, PRN Allergic reaction, # 1 kit(s), 0 Refill(s), Pharmacy: [facility], Pharyngitis Groin injury, 171, cm, 07/21/24 10:29:00 EDT, Height, kg, 07/21/24 10:29:00 EDT, Dosing Weight Start Date: 07/21/24 Status: Ordered Medication Dispense Status: Completed Quantity: 1.0 Unit: kit(s) Total Allowed Fills: 1 Fills Dispensed: 0 Indications: Unspecified injury of abdomen, initial encounter; Acute pharyngitis, unspecified; Start: 10-09-2023 EpiPen 2-Tushar 0 .3 mg injectable kit Dose : 0.3 mg =, Subcutaneous, AsDirected, PRN Allergic reaction, # 1 kit(s), 0 Refill(s), [facility]: [facility] #[id number], Pharyngitis Groin injury, 174, cm, 10/09/23 13:04:00 EDT, Height, kg, 10/09/23 13:04:00 EDT, Dosing Weight Start Date: 10/09/23 Status: Ordered Start: 11-08-2018 EpiPen 2-Tushar 0 .3 mg injectable kit Dose : 0.3 mg =, Intramuscular, AsDirected, PRN Allergic reaction, # 1 kit(s), 0 Refill(s) Start Date: 11/08/18 Status: Ordered hydrOXYzine hydrochloride 25 mg oral tablet (1 source) Antihistamine Start: 12-06-2021 End: 12-11-2021 hydrOXYzine hydrochloride 25 mg oral tablet Dose : 25 mg = 1 tab(s), Oral, qHS, # 5 tab(s), 0 Refill(s), [facility]: [facility] #[id number], Pruritus, 172.7, cm, 12/06/21 11:29:00 EDT, Height Start Date: 12/06/21 Stop Date: 12/11/21 Status: Ordered levothyroxine sodium 0.1 mg oral capsule (6 sources) l-Thyroxine Start: 05-03-2019 End: 02-18-2021 take 1 capsule by mouth once daily Levothyroxine 100 mcg capsule Discontinued 100 ug PO DAILY May 03, 2019 1:00am February 18, 2021 3:33pm meloxicam 15 mg oral tablet (12 sources) Nonsteroidal Anti-inflammatory Drug Start: 05-19-2019 End: 06-05-2020 take 1 tablet by mouth once daily Meloxicam 15 mg tablet Discontinued 15 mg PO DAILY 30 May 04, 2020 1:00am June 05, 2020 10:58am naproxen sodium 220 mg oral tablet (6 sources) Nonsteroidal Anti-inflammatory Drug Start: 04-19-2021 End: 11-14-2024 take 1 tablet by mouth every twelve hours as needed for pain Naproxen Sodium (Aleve) 220 mg tablet Discontinued 220 mg PO EVERY 12 HOURS NEEDED as needed for pain April 19, 2021 1:00am November 14, 2024 11:02am pantoprazole 40 mg delayed release oral tablet (20 sources) Proton Pump Inhibitor Start: 05-04-2020 End: 11-24-2023 take 1 tablet by mouth once daily Pantoprazole 40 mg tablet,delayed release (DR/EC) Discontinued 40 mg PO DAILY May 04, 2020 1:00am November 24, 2023 9:34am Comment on above: Take 1 tablet by zuleika th once daily. predniSONE 1 mg oral tablet (1 source) Start: 11-18-2021 End: 11-21-2021 predniSONE 1 mg oral tablet Dose : 2 mg = 2 tab(s), Oral, qDay, # 6 tab(s), 0 Refill(s), Pharmacy: [id number], Strain of right groin, 172.7, cm, 11/18/21 10:29:00 EDT, Height Start Date: 11/18/21 Stop Date: 11/21/21 Status: Ordered rosuvastatin calcium 10 mg oral tablet (9 sources) HMG-CoA Reductase Inhibitor Start: 02-18-2021 End: 11-05-2023 take 1 tablet by mouth once daily Rosuvastatin (Crestor) 10 mg tablet Discontinued 10 mg PO DAILY February 18, 2021 1:00am November 05, 2023 2:32pm tiZANidine 4 mg oral capsule (10 sources) Central alpha-2 Adrenergic Agonist Start: 09-25-2021 End: 11-05-2023 take 1 capsule by mouth three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 STEEN [facility] Orthopedic Visit Reporton Orthopedic Visit Report [facility] [address] [place] [address] OFFICE VISIT Date of Service: 07/18/24 MR#: [id number] Acct: [id number] Name: ALYX MOTLEY Rep #: [id number] : 1955 Provider: Dr. Waqar benoit DO Age/Sex: 69/M Location: [facility] [place].[facility] Status: Signed with Addenda ADDENDUM by Stacy Chirinos on 07/18/24 at 1258 Office Procedure Documentation entered by Stacy Chirinos 07/18/24 12:58: Ortho Injections Injections Yes Medial Epicondyle Right Is this a patient provided medication?: No Details: Obtained consent for injection. Under sterile conditions, injected the patients right medial epicondyle with 1cc bupivacaine .5cc depo medrol. The patient tolerated the injection well without any noted complication. Patient should call our office if redness develops, pain worsens or if they have any concerns. Office Meds Depo-Medrol 40 mg/mL suspension for injection Performing Provider: Waqar Woodruff DO Performing Location: [facility] Administered by: Waqar Woodruff DO on 07/18/24 12:56 Dose Route Admin Location Dispensed Lot Number Expiration Date NDC Man ufacturer 20 mg intra-articular right medial epicondyle 0.5 mL [id number] 11/04/25 0009- 0280-03 PHARMACIA-UPJHN Date cc: * Signed Intake Vital Signs 06/22/24 13:53 07/14/24 09:19 Height 5 ft 8 in 5 ft 8 in Weight: 163 lb 2 oz BMI 24.7 Intake Visit Reasons: RIGHT ELBOW/WRIST Chief Complaint: Right Elbow Pain Allergies bee venom protein (honey bee) Allergy (Intermediate, Verified 06/22/24 13:54) unk sulfamethoxazole (From Bactrim) Allergy (Verified 03/19/25 13:54) Agitated trimethoprim (From Bactrim) Allergy (Verified 06/22/24 13:54) Agitated Have you fallen in the past year?: No PFSH Medical History Wears glasses Cancer Thyroid disease High cholesterol Difficulty swallowing CPAP (continuous positive airway pressure) dependence Non-smoker Cardiology follow-up encounter History of echocardiogram GERD (gastroesophageal reflux disease) Diverticulitis Colon polyp Chronic back pain Lower abdominal pain Surgical History Hx of colonoscopy Hx of esophagogastroduodenoscopy History of tonsillectomy and adenoidectomy H/O prostatectomy Social History Smoking Status: Never smoker alcohol intake: never HPI RIGHT ELBOW/WRIST Details: This documentation accurately reflects the service provided and the decisions made by me, Dr. Waqar Woodruff, DO 07/18/24 0813. Part of today???s visit was documented by Hina VENEGAS, acting as scribe. ALYX MOTLEY is a 69 year old M here today for f/u on right wrist and elbow pain. He did take 600mg of Ibuprofen which did help some but is still having pain. At time he does have pain with movement. Patient denies any new injury. Denies numbness, tingling or other associated symptoms. He did have an injury in 2017 or 2017 and sprained the wrist at the time. He did have an MRI in 2021 of the wrist as well. The ibuprofen has helped pain is mostly medial elbow. 06/22/2024 visit:here today for right elbow pain. Patient states the elbow has been bothering him for a few days since Thursday. He states he was pushing himself up on his bed and he was down on his knees. He states it was instant soreness. He denies any popping or clicking sensation in the elbow. He denies any swelling or bruising at the time of injury. no prior problems.He describes the pain over medial elbow. He denies any numbness/tingling in the arm or hands. He denies any previous injuries or surgery. He denies taking any pain medication since this occurred. Plan: Obtained and reviewed imaging with the patient and explained that he did not fracture anything and he does not have any fat pad signs that would be indicative of a occult fracture that would not show up on x-rays. Explained that he most likely strained the common flexors of the elbow based on exam. He should focus on wrist flexion and extension. Recommended he take 600mg Ibuprofen 2-3 days a time for the next couple of weeks. If for some reason the Ibuprofen bothers his stomach and gives him any issues he should let us know and he could try something easier on the stomach. . He should apply ice to the area and that will help with the pain and inflammation. Follow up 1 month if not better or as needed basis or sooner if pain, swelling, numbness or associated symptoms, or concerns develop. All questions answered. Patient in agreement of plan Ortho Exam General General: Yes no acute distress and Yes well groomed Neurologic: Yes alert and Y (more content not included)... Normal [facility] Wrist min 3 Viewson 07-19-19 Wrist min 3 Views [facility] [address] [place] [address] Wrist min 3 Views MR#: [id number] Acct: [id number] Name: ALYX MOTLEY Rep #: [id number] : 1955 M 69 From: Omero Roberts MD PCP: Dr. Lian Anthony MD Status: DEP AMB Study: Wrist min 3 Views Date of Exam: 07/18/24 Exam# [id number] Ordering Dr: Waqar Woodruff DO EXAM: RIGHT WRIST, (THREE VIEWS) CLINICAL HISTORY: PAIN SHOOTING FROM ELBOW TO WRIST AFTER STRAIN INJURY COMPARISON: NO RELEVANT PRIOR. TECHNIQUE: AP, lateral, and oblique. FINDINGS: Bones: No fractures or other osseous abnormalities. Joints: No subluxations or dislocations. Soft tissues: Unremarkable. RAD/Wrist min 3 Views IMPRESSION: 1. No acute osseous findings. Reading Location: [facility] CC: Dr. Waqar Woodruff DO; Dr. Lian Anthony MD Microbiology Director: Signed Normal [facility] Elbow min 3 Viewson 06-23-19 Elbow min 3 Views [facility] Imaging [facility] [address] [facility] [place] [id number] Elbow min 3 Views MR#: [id number] Acct: [id number] Name: ALYX MOTLEY Rep #: [id number] : 1955 M 69 From: Alyx Espinosa PCP: Dr. Lian Anthony MD Status: DEP AMB Study: Elbow min 3 Views Date of Exam: 06/22/24 Exam# [id number] Ordering Dr: Waqar Woodruff DO PROCEDURE: ELBOW MIN 3 VIEWS 06/22/2024 REASON FOR EXAM: ACUTE PAIN/INJURY AFTER STRAIN INJURY TECHNIQUE: 3 view(s) of the right elbow COMPARISON: None. RAD/Elbow min 3 Views IMPRESSION: No right elbow joint effusion is seen. A small chronic appearing enthesophyte is seen at the lateral epicondyle of the distal right humerus. No significant arthritic process or joint narrowing is otherwise noted. Satisfactory alignment is seen. No fracture is seen. Reading Location: [address] CC: Dr. Waqar Woodruff DO; Dr. Lian Anthony MD Microbiology Director: Signed Normal [facility] Orthopedic Visit Reporton Orthopedic Visit Report [facility] [address] [place] [address] OFFICE VISIT Date of Service: 06/22/24 MR#: [id number] Acct: [id number] Name: ALYX MOTLEY Rep #: [id number] : 1955 Provider: Dr. Waqar benoit DO Age/Sex: 69/M Location: [facility] [place] Status: Signed Intake Vital Signs 11/17/23 10:22 06/22/24 13:53 Height 5 ft 8 in 5 ft 8 in Weight: 163 lb 2 oz BMI 24.7 Intake Visit Reasons: RIGHT ELBOW Chief Complaint: Right Elbow Pain Accompanied by: Self Is patient in pain?: Yes Pain scale (1-10): 5 Allergies bee venom protein (honey bee) Allergy (Intermediate, Verified 06/22/24 13:54) unk sulfamethoxazole (From Bactrim) Allergy (Verified 06/22/24 13:54) Agitated trimethoprim (From Bactrim) Allergy (Verified 06/22/24 13:54) Agitated Medications ???Medication ???Instructions ???Recorded ???Confirmed ???Type naproxen sodium 220 mg tablet 220 mg PO Q12H PRN PRN pain 06/22/24 History (Aleve) loratadine 10 mg tablet 10 mg PO DAILY PRN PRN allergy 06/22/24 History symptoms [id number] 1 cap PO TID #90 caps 06/09/23 Rx 36,000-114,000-180,000 unit capsule,delay rel (Creon) pitavastatin calcium 4 mg tablet 4 mg PO DAILY 11/05/23 06/22/24 Hi story (Livalo) omeprazole 40 mg capsule,delayed 40 mg PO BID #60 caps 11/24/23 Rx release Have you fallen in the past year?: No PFSH Medical History Wears glasses Cancer Thyroid disease High cholesterol Difficulty swallowing CPAP (continuous positive airway pressure) dependence Non-smoker Cardiology follow-up encounter History of echocardiogram GERD (gastroesophageal reflux disease) Diverticulitis Colon polyp Chronic back pain Lower abdominal pain Surgical History Hx of colonoscopy Hx of esophagogastroduodenoscopy History of tonsillectomy and adenoidectomy H/O prostatectomy Social History Smoking Status: Never smoker alcohol intake: never HPI RIGHT ELBOW Details: This documentation accurately reflects the service provided and the decisions made by me, Dr. Waqar Woodruff, DO 06/22/24 0908. Part of today???s visit was documented by Geraldine Machado ATC, acting as scribe. ALYX MOTLEY is a 69 year old M here today for right elbow pain. Patient states the elbow has been bothering him for a few days since Thursday. He states he was pushing himself up on his bed and he was down on his knees. He states it was instant soreness. He denies any popping or clicking sensation in the elbow. He denies any swelling or bruising at the time of injury. no prior problems.He describes the pain over medial elbow. He denies any numbness/tingling in the arm or hands. He denies any previous injuries or surgery. He denies taking any pain medication since this occurred. Ortho Exam General General: Yes no acute distress and Yes well groomed Neurologic: Yes alert and Yes oriented x3 Psychologic: Yes reasonable and appropriate Right Elbow Skin/Wound: Yes CDI, No eccymosis, No erythema and No Swelling ROM: Yes Flexion 0-140, Extension 0, Supination 0-90 and Pronation 0-80 Test: No Valgus Stress Test, No Varus Stress Test, Yes TTP Medial Epicondyle, No TTP Lateral Epicondyle and Yes Pain w/ resist wrist flex ELBOW: full elbow EXT no joint effusion no bursal swelling intact biceps intact triceps tenderness on medial epicondyle pain with resisted wrist flexion - Tinel's at the elbow Supplemental Info 06/22/2024 x-ray right elbow no acute findings there is no anterior or posterior fat pad no olecranon swelling 05/02/2021 MRI right wrist: Very mild bone contusions of the ulnar styloid process and triquetrum very mild extensor carpi ulnaris tenosynovitis, normal triangular fibrocartilage complex and normal distal radial ulnar joint Coding Level of Care Code Off vis,est,level 3 Diagnoses Strain of flexor muscle at forearm level S56.219A Assessment and Plan Assessment and Plan (1) Strain of flexor muscle at forearm level: Status: Acute Orders: Orders Elbow min 3 Views Today M25.521 - Pain in right elbow Plan Obtained and reviewed imaging with the patient and explained that he did not fracture anything and he does not have any fat pad signs that would be indicative of a occult fracture that would not show up on x-rays. Explained that he most likely strained the common flexors of the elbow based on exam. He should focus on wrist flexion and extension. Recommended he take 600mg Ibuprofen 2-3 days a time for the next couple of weeks. If for some reason the Ibuprofen bothers his stomach and (more content not included)... Normal [facility] .Auto Diffon 02-22-2024 Basophil, Absolute 0.0 10 3/mcL Normal 0.0-0.2 [facility] Comment on above: Performed By: #### L IPID, GFR, CBC, CMP, ADIFF, ANEU #### [address] [address] Basophils/100 WBC (Bld) 0.5 % Normal 0.0-2.5 [facility] Comment on above: Performed By: #### L IPID, GFR, CBC, CMP, ADIFF, ANEU #### [address] [address] Eosinophil, Absolute 0.3 10 3/mcL Normal 0.0-0.7 [facility] Comment on above: Performed By: #### L IPID, GFR, CBC, CMP, ADIFF, ANEU #### [address] [address] Eosinophils/100 WBC (Bld) 4.0 % Normal 0.0-7.0 [facility] Comment on above: Performed By: #### L IPID, GFR, CBC, CMP, ADIFF, ANEU #### [address] [address] Lymphocyte, Absolute 2.1 10 3/mcL Normal 0.9-4.3 [facility] Comment on above: Performed By: #### L IPID, GFR, CBC, CMP, ADIFF, ANEU #### [address] [address] Lymphocytes/100 WBC (Bld) 32.9 % Normal 20.0-40.0 [facility] Comment on above: Performed By: #### L IPID, GFR, CBC, CMP, ADIFF, ANEU #### [address] [address] Monocyte, Absolute 0.5 10 3/mcL Normal 0.1-1.4 [facility] Comment on above: Performed By: #### L IPID, GFR, CBC, CMP, ADIFF, ANEU #### [address] [address] Monocytes/100 WBC (Bld) 7.8 % Normal 2.0-13.0 [facility] Comment on above: Performed By: #### L IPID, GFR, CBC, CMP, ADIFF, ANEU #### [place] [place], [place] [address] Neutrophils/100 WBC (Bld) 54.8 % Normal 50.0-75.0 [facility] Comment on above: Performed By: #### L IPID, GFR, CBC, CMP, ADIFF, ANEU #### [address] [place], [place] [address] .GFRon 02-22-2024 GFR Non- 65 ml/min/1.73sqm Normal [facility] Comment on above: Result Comment: GFR Population mean for , Non- Americans Ages 20-29 = 116 mL/min/1.73 sq.m. Ages 30-39 = 107 mL/min/1.73 sq.m. Ages 40-49 = 99 mL/min/1.73 sq.m. Ages 50-59 = 93 mL/min/1.73 sq.m. Ages 60-69 = 85 mL/min/1.73 sq.m. Ages 70+ = 75 mL/min/1.73 sq.m. Chronic Kidney Disease: Less than 60 mL/min/1.73 square meters End Stage Renal Disease: Less than 15 mL/min/1.73 square meters Performed By: #### L IPID, GFR, CBC, CMP, ADIFF, ANEU #### [address] [place], [place] [address] GFR 79 ml/min/1.73sqm Normal [facility] Comment on above: Result Comment: GFR Population mean for , Non- Americans Ages 20-29 = 116 mL/min/1.73 sq.m. Ages 30-39 = 107 mL/min/1.73 sq.m. Ages 40-49 = 99 mL/min/1.73 sq.m. Ages 50-59 = 93 mL/min/1.73 sq.m. Ages 60-69 = 85 mL/min/1.73 sq.m. Ages 70+ = 75 mL/min/1.73 sq.m. Chronic Kidney Disease: Less than 60 mL/min/1.73 square meters End Stage Renal Disease: Less than 15 mL/min/1.73 square meters Performed By: #### L IPID, GFR, CBC, CMP, ADIFF, ANEU #### [address] [address] .NEUABSon 02-22-2024 Neutrophil, Absolute 3.5 10 3/mcL Normal 2.3-8.1 [facility] Comment on above: Performed By: #### L IPID, GFR, CBC, CMP, ADIFF, ANEU #### [place] [id number] CBCon 02-22-2024 Erythrocyte distribution width (RBC) [Ratio] 14.1 % Normal 11.5-15.5 [facility] Comment on above: Performed By: #### L IPID, GFR, CBC, CMP, ADIFF, ANEU #### [place] [address] Hematocrit (Bld) [Volume fraction] 44.0 % Normal 40.0-52.0 [facility] Comment on above: Performed By: #### L IPID, GFR, CBC, CMP, ADIFF, ANEU #### [place] [address] Hgb 14.9 G/dL Normal 13.0-17.5 [facility] Comment on above: Performed By: #### L IPID, GFR, CBC, CMP, ADIFF, ANEU #### [place] [address] MCH (RBC) [Entitic mass] 29.7 pg Normal 27.0-33.0 [facility] Comment on above: Performed By: #### L IPID, GFR, CBC, CMP, ADIFF, ANEU #### [place] [address] MCHC 33.8 G/dL Normal 32.0-36.0 [facility] Comment on above: Performed By: #### L IPID, GFR, CBC, CMP, ADIFF, ANEU #### [place] [address] MCV (RBC) [Entitic vol] 87.8 fL Normal 81.0-100.0 [facility] Comment on above: Performed By: #### L IPID, GFR, CBC, CMP, ADIFF, ANEU #### [address] [address] Platelet 195 10 3/mcL Normal 150-450 [facility] Comment on above: Performed By: #### L IPID, GFR, CBC, CMP, ADIFF, ANEU #### [address] [address] Platelet mean volume (Bld) [Entitic vol] 7.7 fL Normal 6.4-10.5 [facility] Comment on above: Performed By: #### L IPID, GFR, CBC, CMP, ADIFF, ANEU #### [address] [address] RBC 5.01 10 6/mcL Normal 4.50-6.00 [facility] Comment on above: Performed By: #### L IPID, GFR, CBC, CMP, ADIFF, ANEU #### [address] [address] WBC 6.4 10 3/mcL Normal 4.5-10.8 [facility] Comment on above: Performed By: #### L IPID, GFR, CBC, CMP, ADIFF, ANEU #### [address] [address] CMPon 02-22-2024 Albumin Level 3.8 G/dL Normal 3.4-4.8 [facility] Comment on above: Performed By: #### L IPID, GFR, CBC, CMP, ADIFF, ANEU #### [address] [address] Albumin/Globulin [Mass ratio] 1.5 {ratio} Normal 1.1-2.5 [facility] Comment on above: Performed By: #### L IPID, GFR, CBC, CMP, ADIFF, ANEU #### [address] [address] ALP [Catalytic activity/Vol] 90 U/L Normal 40-135 [facility] Comment on above: Performed By: #### L IPID, GFR, CBC, CMP, ADIFF, ANEU #### [address] [address] ALT [Catalytic activity/Vol] 29 U/L Normal 16-63 [facility] Comment on above: Performed By: #### L IPID, GFR, CBC, CMP, ADIFF, ANEU #### [address] [address] AST [Catalytic activity/Vol] 19 U/L Normal 10-40 [facility] Comment on above: Performed By: #### L IPID, GFR, CBC, CMP, ADIFF, ANEU #### [place] [address] Bili Total 0.6 mg/dL Normal 0.2-1.0 [facility] Comment on above: Result Comment: Use of this assay is not recommended for patients undergoing treatment with eltrombopag due to the potential for falsely elevated results. Performed By: #### L IPID, GFR, CBC, CMP, ADIFF, ANEU #### [place] [id number] BUN/Creatinine Ratio 9 ratio Normal 7-27 [facility] Comment on above: Performed By: #### L IPID, GFR, CBC, CMP, ADIFF, ANEU #### [address] [address] Calcium [Mass/Vol] 9.2 mg/dL Normal 8.4-10.2 [facility] Comment on above: Performed By: #### L IPID, GFR, CBC, CMP, ADIFF, ANEU #### [address] [address] Chloride [Moles/Vol] 106 mmol/L Normal 98-107 [facility] Comment on above: Performed By: #### L IPID, GFR, CBC, CMP, ADIFF, ANEU #### [address] [address] CO2 [Moles/Vol] 32 mmol/L High 23-31 [facility] Comment on above: Performed By: #### L IPID, GFR, CBC, CMP, ADIFF, ANEU #### [place] [address] Creatinine [Mass/Vol] 1.12 mg/dL Normal 0.70-1.30 [facility] Comment on above: Result Comment: Test ing performed on Siemens Dimension EXL analyzer using a modified kinetic Vinh technique. Performed By: #### L IPID, GFR, CBC, CMP, ADIFF, ANEU #### [place] [address] Electrolyte Balance 5.0 mEq/L Normal 4.0-15.0 [facility] Comment on above: Performed By: #### L IPID, GFR, CBC, CMP, ADIFF, ANEU #### [place] [address] Globulin 2.5 G/dL Normal [facility] Comment on above: Performed By: #### L IPID, GFR, CBC, CMP, ADIFF, ANEU #### [place] [address] Glucose [Mass/Vol] 103 mg/dL Normal 80-115 [facility] Comment on above: Performed By: #### L IPID, GFR, CBC, CMP, ADIFF, ANEU #### [place] [address] Potassium [Moles/Vol] 4.3 mmol/L Normal 3.5-5.1 [facility] Comment on above: Performed By: #### L IPID, GFR, CBC, CMP, ADIFF, ANEU #### [place] [address] Sodium [Moles/Vol] 143 mmol/L Normal 136-145 [facility] Comment on above: Performed By: #### L IPID, GFR, CBC, CMP, ADIFF, ANEU #### [place] [address] Total Protein 6.3 G/dL Low 6.4-8.2 [facility] Comment on above: Performed By: #### L IPID, GFR, CBC, CMP, ADIFF, ANEU #### [facility] [address] [place], [place] [address] Urea nitrogen [Mass/Vol] 10 mg/dL Normal 7-18 [facility] Comment on above: Performed By: #### L IPID, GFR, CBC, CMP, ADIFF, ANEU #### [facility] [address] [place], [place] [address] LABORATORYOrdered By: SYSTEM SYSTEM on 02-22-2024 Albumin BCP dye [Mass/Vol] 3.8 G/dL Normal 3.4 - 4.8 G/dL AO ADM SS Albumin/Globulin [Mass ratio] 1.5 {ratio} Normal 1.1 - 2.5 ratio AO ADM SS ALP [Catalytic activity/Vol] 90 U/L Normal 40 - 135 U/L AO ADM SS ALT With P-5'-P [Catalytic activity/Vol] 29 U/L Normal 16 - 63 U/L AO ADM SS AST With P-5'-P [Catalytic activity/Vol] 19 U/L Normal 10 - 40 U/L AO ADM SS Basophils (Bld) [#/Vol] 0.0 103/mcL Normal 0.0 - 0.2 10^3/mcL AO Workflow SS Basophils/100 WBC (Bld) 0.5 % Normal 0.0 - 2.5 % AO Workflow SS Bilirubin [Mass/Vol] 0.6 mg/dL Normal 0.2 - 1 .0 mg/dL AO ADM SS Comment on above: Interpretive Data: U se of this assay is not recommended for patients undergoing treatment with eltrombopag due to the potential for falsely elevated results. Calcium [Mass/Vol] 9.2 mg/dL Normal 8.4 - 10. 2 mg/dL AO ADM SS Chloride [Moles/Vol] 106 mmol/L Normal 98 - 10 7 mmol/L AO ADM SS CO2 [Moles/Vol] 32 mmol/L High 23 - 31 mmol/L AO ADM SS Creatinine [Mass/Vol] 1.12 mg/dL Normal 0.70 - 1.30 mg/dL AO ADM SS Comment on above: Interpretive Data: T esting performed on Siemens Dimension EXL analyzer using a modified kinetic Vinh technique. Electrolyte Balance 5.0 mEq/L Normal 4.0 - 15 .0 mEq/L AO ADM SS Eosinophil, Absolute 0.3 103/mcL Normal 0.0 - 0 .7 10^3/mcL AO Workflow SS Eosinophils/100 WBC (Bld) 4.0 % Normal 0.0 - 7.0 % AO Workflow SS Erythrocyte distribution width (RBC) [Ratio] 14.1 % Normal 11.5 - 15.5 % AO Workflow SS GFR/1.73 sq M.predicted among blacks MDRD (S/P/Bld) [Vol rate/Area] 79 ml/min/1.73sqm Invalid Interpretation Code AO Chemistry S Comment on above: Interpretive Data: GFR Population mean for , Non- Americans Ages 20-29 = 116 mL/min/1.73 sq.m. Ages 30-39 = 107 mL/min/1.73 sq.m. Ages 40-49 = 99 mL/min/1.73 sq.m. Ages 50-59 = 93 mL/min/1.73 sq.m. Ages 60-69 = 85 mL/min/1.73 sq.m. Ages 70+ = 75 mL/min/1.73 sq.m. Chronic Kidney Disease: Less than 60 mL/min/1.73 square meters End Stage Renal Disease: Less than 15 mL/min/1.73 square meters GFR/1.73 sq M.predicted among non-blacks MDRD (S/P/Bld) [Vol rate/Area] 65 ml/min/1.73sqm Invalid Interpretation Code AO Chemistry S Comment on above: Interpretive Data: GFR Population mean for , Non- Americans Ages 20-29 = 116 mL/min/1.73 sq.m. Ages 30-39 = 107 mL/min/1.73 sq.m. Ages 40-49 = 99 mL/min/1.73 sq.m. Ages 50-59 = 93 mL/min/1.73 sq.m. Ages 60-69 = 85 mL/min/1.73 sq.m. Ages 70+ = 75 mL/min/1.73 sq.m. Chronic Kidney Disease: Less than 60 mL/min/1.73 square meters End Stage Renal Disease: Less than 15 mL/min/1.73 square meters Globulin 2.5 G/dL Invalid Interpretation Code AO ADM SS Glucose [Mass/Vol] 103 mg/dL Normal 80 - 115 mg/dL AO ADM SS Hematocrit (Bld) [Volume fraction] 44.0 % Normal 40.0 - 52.0 % AO Workflow SS Hemoglobin (Bld) [Mass/Vol] 14.9 G/dL Normal 13.0 - 17.5 G/dL AO Workflow SS Lymphocytes (Bld) [#/Vol] 2.1 103/mcL Normal 0.9 - 4.3 10^3/mcL AO Workflow SS Lymphocytes/100 WBC (Bld) 32.9 % Normal 20.0 - 40.0 % AO Workflow SS MCH (RBC) [Entitic mass] 29.7 pg Normal 27.0 - 33.0 pg AO Workflow SS MCHC 33.8 G/dL Normal 32.0 - 36.0 G/dL AO Workflow SS MCV (RBC) [Entitic vol] 87.8 fL Normal 81.0 - 100.0 fL AO Workflow SS Monocytes (Bld) [#/Vol] 0.5 103/mcL Normal 0.1 - 1.4 10^3/mcL AO Workflow SS Monocytes/100 WBC (Bld) 7.8 % Normal 2.0 - 13.0 % AO Workflow SS Neutrophils (Bld) [#/Vol] 3.5 103/mcL Normal 2.3 - 8.1 10^3/mcL AO Workflow SS Neutrophils/100 WBC (Bld) 54.8 % Normal 50.0 - 75.0 % AO Workflow SS Platelet mean volume (Bld) [Entitic vol] 7.7 fL Normal 6.4 - 10.5 fL AO Workflow SS Platelets (Bld) [#/Vol] 195 103/mcL Normal 150 - 450 10^3/mcL AO Workflow SS Potassium [Moles/Vol] 4.3 mmol/L Normal 3.5 - 5.1 mmol/L AO ADM SS Protein [Mass/Vol] 6.3 G/dL Low 6.4 - 8.2 G/dL AO ADM SS RBC (Bld) [#/Vol] 5.01 106/mcL Normal 4.50 - 6.00 10^6/mcL AO Workflow SS Sodium [Moles/Vol] 143 mmol/L Normal 136 - 145 mmol/L AO ADM SS Urea nitrogen [Mass/Vol] 10 mg/dL Normal 7 - 18 mg/dL AO ADM SS Urea nitrogen/Creatinine [Mass ratio] 9 ratio Normal 7 - 27 ratio AO ADM SS WBC (Bld) [#/Vol] 6.4 103/mcL Normal 4.5 - 10.8 10^3/mcL AO Workflow SS LABORATORYOrdered By: Hammad Herrera on 02-22-2024 Cholesterol [Mass/Vol] 197 mg/dL Normal 0 - 2 00 mg/dL AO ADM SS Comment on above: Interpretive Data: C holesterol Reference Interval: Less than 200 Desirable 200-239 Borderline high risk 240 and above High risk Cholesterol in HDL [Mass/Vol] 61 mg/dL High 40 - 60 mg/dL AO ADM SS Cholesterol in LDL [Mass/Vol] 115 mg/dL Normal 0 - 130 mg/dL AO ADM SS Triglyceride [Mass/Vol] 106 mg/dL Normal 0 - 150 mg/dL AO ADM SS Comment on above: Interpretive Data: T riglyceride Reference Interval: Less than 150 Normal 150-199 Borderline high risk 200-499 High risk 500 or higher Very high risk LIPIDon 02-22-2024 Cholesterol [Mass/Vol] 197 mg/dL Normal 0-200 [facility] Comment on above: Result Comment: Chol esterol Reference Interval: Less than 200 Desirable 200-239 Borderline high risk 240 and above High risk Performed By: #### L IPID, GFR, CBC, CMP, ADIFF, ANEU ####[address] [place], [place] [address] Cholesterol in HDL [Mass/Vol] 61 mg/dL High 40-60 [facility] Comment on above: Performed By: #### L IPID, GFR, CBC, CMP, ADIFF, ANEU ####[address] [place], [place] [address] Cholesterol in LDL [Mass/Vol] 115 mg/dL Normal 0-130 [facility] Comment on above: Performed By: #### L IPID, GFR, CBC, CMP, ADIFF, ANEU ####[address] [place], [place] [address] Triglyceride [Mass/Vol] 106 mg/dL Normal 0-150 [facility] Comment on above: Result Comment: Trig lyceride Reference Interval: Less than 150 Normal 150-199 Borderline high risk 200-499 High risk 500 or higher Very high risk Performed By: #### L IPID, GFR, CBC, CMP, ADIFF, ANEU ####[id number] [place], [place] [address] CNOVon 02-12-2024 CNOV Office Visit (CAUNDO ) -- ALYX MOTLEY ([id number]) 1955 Date Time Provider Department 02/12/24 11:15 AM ADAM VANN During your visit today, we recorded the following information about you: Pulse Blood pressure Weight Height 63/minute 122/74 74 kg 1.727 m Adam Vann DO 02/15/2024 5:32 AM Signed Referring Provider: No ref. provider found Date: February 12, 2024 Chief Complaint: Established Patient Follow-Up (Murmur) HISTORY OF PRESENT ILLNESS: Alyx Morales Motley is a 68 year old male who presents for Established Patient Follow-Up (Murmur). Patient has a bicuspid aortic valve. Echocardiogram 2021 demonstrated no significant outflow obstruction. ALLERGIES Allergen Reactions Bee Sting PAST MEDICAL HISTORY: PAST MEDICAL HISTORY Diagnosis Date Bicuspid aortic valve Chronic back pain COVID-19 02/2020 Diverticulosis GERD (gastroesophageal reflux disease) H/O echocardiogram 09/06/2021 Ef 50-55%, bicuspid aortic valve , aortic root borderline dilated ( 38 mm) ascending aorta mildly dilated (37 mm), mvp, posterior leaflet History of prostate cancer 2008 Hypothyroidism IBS (irritable bowel syndrome) Mixed hyperlipidemia Murmur MVP (mitral valve prolapse) ROBIN (obstructive sleep apnea) PAST SURGICAL HISTORY Procedure Laterality Date COLONOSCOPY 2018 polypectomy COLONOSCOPY FLX DX W/COLLJ SPEC WHEN PFRMD 02/22/2015 Colonoscopy EGD (ARM) 10/22/2017 ESOPHAGOGASTRODUODENOSCOPY TRANSORAL DIAGNOSTIC 02/22/2015 EGD PROSTATE BIOPSY PROSTATECTOMY;RADICAL RETROPUBIC 03/26/2009 TONSILLECTOMY PRIMARY/SECONDARY Tonsillectomy FAMILY HISTORY Problem Relation Age of Onset Prostate Cancer Maternal Grandfather Colon Cancer Mother Ischemic Heart Disease Maternal Grandmother SOCIAL HISTORY: Tobacco Use: Never Alcohol Use: No Drug Use: No 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 pitavastatin (LIVALO) 1 mg tablet Take 4 mg by mouth once daily. loratadine (CLARITIN) 10 mg tablet Take 1 tablet by mouth as needed. propranolol (INDERAL) 10 mg tablet Take 10 mg by mouth once daily. (Patient not taking: Reported on 02/12/2024) pantoprazole DR (PROTONIX) 40 mg tablet Take 1 tablet by mouth once daily. (Patient not taking: Reported on 02/12/2024) No current facility-administered medications for this visit. I have personally reviewed the patients past medical history including social, family, surgical, diagnostics, and medications. REVIEW OF SYSTEMS: Review of Systems Constitutional: Negative for chills and fatigue. Respiratory: Negative for chest tightness and shortness of breath. Cardiovascular: Negative for chest pain, palpitations and leg swelling. Neurological: Negative for dizziness, syncope, weakness and light-headedness. Hematological: Does not bruise/bleed easily. Psychiatric/Behavioral: Negative for confusion and hallucinations. Vitals: BP 122/74 (BP Site: Left Arm, BP Position: Sitting) Pulse 63 Ht 172.7 cm (5' 8) Wt 74 kg (163 lb 2.3 oz) BMI 24.81 kg/m? PHYSICAL EXAMINATION: BP 122/74 (BP Site: Left Arm, BP Position: Sitting) Pulse 63 Ht 172.7 cm (5' 8) Wt 74 kg (163 lb 2.3 oz) BMI 24.81 kg/m? Last 3 Encounter BP Readings: Date: BP: 02/11/2023 112/82 05/14/2022 130/88 10/23/2021 110/84 Last 3 Encounter Pulse Readings: Date: Pulse: 02/11/2023 70 05/14/2022 69 10/23/2021 74 Last 3 Encounter Wt Readings: Date: Wt: 02/11/2023 77.6 kg (171 lb) 05/14/2022 75.3 kg (166 lb) 10/23/2021 74.8 kg (165 lb) Physical Exam Vitals reviewed. Constitutional: General: He is not in acute distress. Cardiovascular: Rate and Rhythm: Normal rate and regular rhythm. Pulses: Carotid pulses are 2+ on the right side and 2+ on the left side. Radial pulses are 2+ on the right side and 2+ on the left side. Femoral pulses are 2+ on the right side and 2+ on the left side. Popliteal pulses are 2+ on the right side and 2+ on the left side. Dorsalis pedis pulses are 2+ on the right side and 2+ on the left side. Posterior tibial pulses are 2+ on the right side and 2+ on the left side. Heart sounds: Murmur heard. Systolic murmur is present with a grade of 2/6. Comments: PMI not displaced. 2nd heart sound loud. Pulmonary: Effort: Pulmonary effort is normal. Breath sounds: Normal breath sounds. Abdominal: General: Abdomen is flat. Bowel sounds are normal. Palpations: Abdomen is soft. Tenderness: There is no abdominal tenderness. Musculoskeletal: Right lower leg: No edema. Left lower leg: No edema. Skin: General: Skin is warm. Findings: No rash or wound. Neuro (more content not included)... Normal [facility] ECG COMPLETEon 02-12-2024 ECG COMPLETE Ventricular Rate : 6 3 BPM Atrial Rate : 63 BPM P-R Interval : 182 ms QRS Duration : 96 ms Q-T Interval : 418 ms QTC Calculation(Bazett) : 427 ms Calculated P Bayside : 67 degrees Calculated R Bayside : 71 degrees Calculated T Bayside : 65 degrees Normal sinus rhythm Normal ECG When compared with ECG of 11-Feb-2023 14:05, No significant change was found Confirmed by ADAM VANN DO ([id number]) on 02/23/2024 2:49:20 PM NAME : ALYX MOTLEY PID : [id number] : 1955 Gender : Male Race : ORD : [id number] Procedure Date : Feb 12 2024 12:16:47 Edit Date : Feb 23 2024 14:49:26 Diagnosis: Normal sinus rhythm Normal ECG When compared with ECG of 11-Feb-2023 14:05, No significant change was found Confirmed by ADAM VANN DO ([id number]) on 02/23/2024 2:49:20 PM Test Reason : HCS Location : 2 : [place] Overread By : ADAM VANN DO Edited By : ADAM VANN DO Referred By : , Acquired by : , [facility] Gastroenterology Visit Repor ton 01-14-2024 Gastroenterology Visit Report [facility] Gastroenterology [address] [place] [address] OFFICE VISIT Date of Service: 01/14/24 MR#: [id number] Acct: [id number] Name: ALYX MOTLEY Rep #: [id number] : 1955 Provider: Geo Deleon DO Age/Sex: 68/M Location: [facility] [place].[facility] Status: Signed Intake Vital Signs 11/17/23 10:22 Height 5 ft 8 in Intake Visit Reasons: Discuss EGD- per patient Allergies bee venom protein (honey bee) Allergy (Intermediate, Verified 11/17/23 10:17) unk sulfamethoxazole (From Bactrim) Allergy (Verified 11/17/23 10:17) Agitated trimethoprim (From Bactrim) Allergy (Verified 11/17/23 10:17) Agitated Medications ???Medication ???Instructions ???Recorded ???Confirmed ???Type naproxen sodium 220 mg tablet 220 mg PO Q12H PRN PRN pain 04/19/21 01/14/24 History (Aleve) loratadine 10 mg tablet 10 mg PO DAILY PRN PRN allergy 09/25/21 01/14/24 History symptoms [id number] 1 cap PO TID #90 caps 06/09/23 01/14/24 Rx 36,000-114,000-180,000 unit capsule,delay rel (Creon) pitavastatin calcium 4 mg tablet 4 mg PO DAILY 11/05/23 01/14/24 History (Livalo) omeprazole 40 mg capsule,delayed 40 mg PO BID #60 caps 11/24/23 01/14/24 Rx release Have you fallen in the past year?: No PFSH Medical History Wears glasses Cancer Thyroid disease High cholesterol Difficulty swallowing CPAP (continuous positive airway pressure) dependence Non-smoker Cardiology follow-up encounter History of echocardiogram GERD (gastroesophageal reflux disease) Diverticulitis Colon polyp Chronic back pain Lower abdominal pain Surgical History Hx of colonoscopy Hx of esophagogastroduodenoscopy History of tonsillectomy and adenoidectomy H/O prostatectomy Social History Smoking Status: Never smoker alcohol intake: never HPI HPI Details: ALYX MOTLEY, is a 68 M who presents to the office today for follow up. PMH chronic back pain; colon polyp; diverticular colon; dysphagia; ED; GERD; prostate cancer; IBS; ROBIN. Prior workup: EGD and Colonoscopy in 2014 with no abnormality, but did start protonix 40mg QHS. EGD and Colonoscopy 2018 with precancerous polyps found. EGD WNL. CT abd/pel 4.7.22 hepatic hypodensities, sub-centimeter, stable since last exam. US RUQ 5.11.22 hepatic cyst of no clinical significance. *BGI established 7.1.22 for evaluation of bloating and belching since July that has improved in the last month or two; unsure of what has changed to cause improvement. Denies trigger. Bowels are typically reddish/brown or olive green (without blood) and float, without urgency but occur 1-2 times a day. Bowels have had a recent change in stools with addition of mucous and flaky consistency and falling to the bottom of the toilet. Weight loss of approximately 10lbs since July with PCP performing cancer tumor markers that were WNL. Denies dysphagia difficulty. Biochemical CMP, CBC, ANCA, celiac, CRP, LDH, ESR, NAINA comp, GAME, ALHAJI, ferritin without pertinent abnormalities. Stool testing EP, calprotectin, lactoferrin, fecal fat, O/P, giardia, elastase, occult WNL. C.Difficile stool was formed. OV 9.23.22 Feels he is doing well at this time. Stools have been varying with periodic floating and other days mushy; typically 4 BM a day usually in the morning. Weight has been stable though he would like an increase. Current weight 169lbs and has been stable for several months. start charcoal and simethicone; short course of doxycycline OV 4.06.26 Intermittent lower abdominal discomfort/cramping without identifiable aggravating/alleviating factors. Feels BM is now normal consistency and is no longer floating. OV 10.06.26 BM continue to be regular and without difficulty without abdominal discomfort/cramping. OV ..24- Pt reports he was doing well until a month ago. Started having abdominal discomfort. BM are still normal. Does not give other information about sx stating he needs to talk to the doctor. OV 8.04.29 pt reports that he has trouble expelling gas. Pt reports regular BM; denies blood in the stool. Pt states that his last upper scope was in 2017 and PCP told him it's not a bad idea to hav e another. Pt continues with creon and pantoprazole. EGD 11.17.23 Z-line irregular, 40 cm from the incisors. Biopsied. Chronic gastritis. Biopsied. No gross lesions in the first portion of the duodenum. Biopsied. OV 01.14.24 pt reports that he would like to discuss the results of his EGD. He also states that he is unable to use the Bi-pap or C-pap, and would like to discuss Inspire. ROS Const Constitutional: No fatigue, fever(s) or we (more content not included)... Normal [facility] 11-25-2023 Color (U) Yellow Normal [facility] ([place]) Comment on above: Performed By: #### G FR, VIDH, FT3, LIPID, FT4, CMP, PSA, ANEU, ADIFF, CBC, TSH #### [id number] [place], [place] [address] Glucose (U) [Mass/Vol] Negative Normal Negative [facility] ([place]) Comment on above: Performed By: #### G FR, VIDH, FT3, LIPID, FT4, CMP, PSA, ANEU, ADIFF, CBC, TSH #### [facility] [address] [place], [place] [address] Ketones Ql (U) Negative Normal Neg-Trace [facility] ([place]) Comment on above: Performed By: #### G FR, VIDH, FT3, LIPID, FT4, CMP, PSA, ANEU, ADIFF, CBC, TSH #### [place] [address] UA Appear Clear Normal Clear [facility] ([place]) Comment on above: Performed By: #### G FR, VIDH, FT3, LIPID, FT4, CMP, PSA, ANEU, ADIFF, CBC, TSH #### [place] [address] UA Blood Negative Normal Neg-Trace [facility] ([place]) Comment on above: Performed By: #### G FR, VIDH, FT3, LIPID, FT4, CMP, PSA, ANEU, ADIFF, CBC, TSH #### [place] [address] UA Leuk Est Negative Normal Negative [facility] ([place]) Comment on above: Performed By: #### G FR, VIDH, FT3, LIPID, FT4, CMP, PSA, ANEU, ADIFF, CBC, TSH #### [place] [address] UA Nitrite Negative Normal Negative [facility] ([place]) Comment on above: Performed By: #### G FR, VIDH, FT3, LIPID, FT4, CMP, PSA, ANEU, ADIFF, CBC, TSH #### [place] [address] UA pH 5.5 Normal 5.0 - 8.0 [facility] ([place]) Comment on above: Performed By: #### G FR, VIDH, FT3, LIPID, FT4, CMP, PSA, ANEU, ADIFF, CBC, TSH #### [place] [address] UA Protein Negative Normal Negative [facility] ([place]) Comment on above: Performed By: #### G FR, VIDH, FT3, LIPID, FT4, CMP, PSA, ANEU, ADIFF, CBC, TSH #### [place] [address] UA Spec Grav 1.015 Normal 1.006-1.02 9 [facility] ([place]) Comment on above: Performed By: #### G FR, VIDH, FT3, LIPID, FT4, CMP, PSA, ANEU, ADIFF, CBC, TSH #### [address] [address] UA Specimen Type Clean Catch Normal [facility] ([place]) Comment on above: Performed By: #### G FR, VIDH, FT3, LIPID, FT4, CMP, PSA, ANEU, ADIFF, CBC, TSH #### [place] [address] UA Urobilinogen 0.2 E.U./dL Normal 0.2-1.0 [facility] ([place]) Comment on above: Performed By: #### G FR, VIDH, FT3, LIPID, FT4, CMP, PSA, ANEU, ADIFF, CBC, TSH #### [place] [address] Urobilinogen (U) [Mass/Vol] Negative Normal Neg-Trace [facility] ([place]) Comment on above: Performed By: #### G FR, VIDH, FT3, LIPID, FT4, CMP, PSA, ANEU, ADIFF, CBC, TSH #### [address] [address] UAMICon 11-25-2023 UA RBC Rare Normal 0-2 [facility] ([place]) Comment on above: Performed By: #### G FR, VIDH, FT3, LIPID, FT4, CMP, PSA, ANEU, ADIFF, CBC, TSH #### [address] [address] UA Squam Epithelial Rare Normal 0-20 [facility] ([place]) Comment on above: Performed By: #### G FR, VIDH, FT3, LIPID, FT4, CMP, PSA, ANEU, ADIFF, CBC, TSH #### [address] [address] UA WBC Negative Normal 0-5 [facility] ([place]) Comment on above: Performed By: #### G FR, VIDH, FT3, LIPID, FT4, CMP, PSA, ANEU, ADIFF, CBC, TSH #### [address] [address] .Auto Diffon 09-04-2023 Basophil, Absolute 0.0 10 3/mcL Normal 0.0-0.2 [facility] ([place]) Comment on above: Performed By: #### G FR, VIDH, FT3, LIPID, FT4, CMP, PSA, ANEU, ADIFF, CBC, TSH #### [address] [address] Basophils/100 WBC (Bld) 0.5 % Normal 0.0-2.5 A [facility] ([place]) Comment on above: Performed By: #### G FR, VIDH, FT3, LIPID, FT4, CMP, PSA, ANEU, ADIFF, CBC, TSH #### [address] [address] Eosinophil, Absolute 0.2 10 3/mcL Normal 0.0-0.4 [facility] ([place]) Comment on above: Performed By: #### G FR, VIDH, FT3, LIPID, FT4, CMP, PSA, ANEU, ADIFF, CBC, TSH #### [address] [address] Eosinophils/100 WBC (Bld) 2.2 % Normal 0.0-7.0 [facility] ([place]) Comment on above: Performed By: #### G FR, VIDH, FT3, LIPID, FT4, CMP, PSA, ANEU, ADIFF, CBC, TSH #### [address] [address] Lymphocyte, Absolute 2.4 10 3/mcL Normal 0.8-3.9 [facility] ([place]) Comment on above: Performed By: #### G FR, VIDH, FT3, LIPID, FT4, CMP, PSA, ANEU, ADIFF, CBC, TSH #### [address] [address] Lymphocytes/100 WBC (Bld) 33.1 % Normal 10.0-50.0 [facility] ([place]) Comment on above: Performed By: #### G FR, VIDH, FT3, LIPID, FT4, CMP, PSA, ANEU, ADIFF, CBC, TSH #### [address] [address] Monocyte, Absolute 0.6 10 3/mcL Normal 0.2-1.0 [facility] ([place]) Comment on above: Performed By: #### G FR, VIDH, FT3, LIPID, FT4, CMP, PSA, ANEU, ADIFF, CBC, TSH #### [address] [address] Monocytes/100 WBC (Bld) 8.4 % Normal 1.7-13.0 [facility] ([place]) Comment on above: Performed By: #### G FR, VIDH, FT3, LIPID, FT4, CMP, PSA, ANEU, ADIFF, CBC, TSH #### [address] [address] Neutrophils/100 WBC (Bld) 55.8 % Normal 37.0-80.0 [facility] ([place] Comment on above: Performed By: #### G FR, VIDH, FT3, LIPID, FT4, CMP, PSA, ANEU, ADIFF, CBC, TSH #### [address] [address] .GFRon 09-04-2023 GFR 84 ml/min/1.73sqm Normal [facility] ([place]) Comment on above: Result Comment: GFR Population mean for , Non- Americans Ages 20-29 = 116 mL/min/1.73 sq.m. Ages 30-39 = 107 mL/min/1.73 sq.m. Ages 40-49 = 99 mL/min/1.73 sq.m. Ages 50-59 = 93 mL/min/1.73 sq.m. Ages 60-69 = 85 mL/min/1.73 sq.m. Ages 70+ = 75 mL/min/1.73 sq.m. Chronic Kidney Disease: Less than 60 mL/min/1.73 square meters End Stage Renal Disease: Less than 15 mL/min/1.73 square meters Performed By: #### G FR, VIDH, FT3, LIPID, FT4, CMP, PSA, ANEU, ADIFF, CBC, TSH #### [address] [address] GFR Non- 69 ml/min/1.73sqm Normal [facility] ([place] Comment on above: Result Comment: GFR Population mean for , Non- Americans Ages 20-29 = 116 mL/min/1.73 sq.m. Ages 30-39 = 107 mL/min/1.73 sq.m. Ages 40-49 = 99 mL/min/1.73 sq.m. Ages 50-59 = 93 mL/min/1.73 sq.m. Ages 60-69 = 85 mL/min/1.73 sq.m. Ages 70+ = 75 mL/min/1.73 sq.m. Chronic Kidney Disease: Less than 60 mL/min/1.73 square meters End Stage Renal Disease: Less than 15 mL/min/1.73 square meters Performed By: #### G FR, VIDH, FT3, LIPID, FT4, CMP, PSA, ANEU, ADIFF, CBC, TSH #### [address] [address] .NEUABSon 09-04-2023 Neutrophil, Absolute 4.0 10 3/mcL Normal 2.9-6.2 [facility] ([place]) Comment on above: Performed By: #### G FR, VIDH, FT3, LIPID, FT4, CMP, PSA, ANEU, ADIFF, CBC, TSH #### [address] [address] CBCon 09-04-2023 Erythrocyte distribution width (RBC) [Ratio] 13.8 % Normal 11.5-14.5 [facility] ([place]) Comment on above: Performed By: #### G FR, VIDH, FT3, LIPID, FT4, CMP, PSA, ANEU, ADIFF, CBC, TSH #### [address] [address] Hematocrit (Bld) [Volume fraction] 44.7 % Normal 42.0-52.0 [facility] ([place] Comment on above: Performed By: #### G FR, VIDH, FT3, LIPID, FT4, CMP, PSA, ANEU, ADIFF, CBC, TSH #### [address] [address] Hgb 15.1 G/dL Normal 14.0-18.0 [facility] ([place] Comment on above: Performed By: #### G FR, VIDH, FT3, LIPID, FT4, CMP, PSA, ANEU, ADIFF, CBC, TSH #### [place] [address] MCH (RBC) [Entitic mass] 29.5 pg Normal 27.0-31.2 [facility] ([place] Comment on above: Performed By: #### G FR, VIDH, FT3, LIPID, FT4, CMP, PSA, ANEU, ADIFF, CBC, TSH #### [place] [address] MCHC 33.9 G/dL Normal 31.8-35.4 [facility] ([place] Comment on above: Performed By: #### G FR, VIDH, FT3, LIPID, FT4, CMP, PSA, ANEU, ADIFF, CBC, TSH #### [place] [address] MCV (RBC) [Entitic vol] 87.1 fL Normal 80.0-94.0 A [facility] ([place] Comment on above: Performed By: #### G FR, VIDH, FT3, LIPID, FT4, CMP, PSA, ANEU, ADIFF, CBC, TSH #### [address] [address] Platelet 219 10 3/mcL Normal 130-400 [facility] ([place]) Comment on above: Performed By: #### G FR, VIDH, FT3, LIPID, FT4, CMP, PSA, ANEU, ADIFF, CBC, TSH #### [address] [address] Platelet mean volume (Bld) [Entitic vol] 7.4 fL Normal 7.4-10.4 [facility] ([place]) Comment on above: Performed By: #### G FR, VIDH, FT3, LIPID, FT4, CMP, PSA, ANEU, ADIFF, CBC, TSH #### [address] [address] RBC 5.13 10 6/mcL Normal 4.04-6.13 [facility] ([place] Comment on above: Performed By: #### G FR, VIDH, FT3, LIPID, FT4, CMP, PSA, ANEU, ADIFF, CBC, TSH #### [address] [address] WBC 7.2 10 3/mcL Normal 4.6-10.8 [facility] ([place] Comment on above: Performed By: #### G FR, VIDH, FT3, LIPID, FT4, CMP, PSA, ANEU, ADIFF, CBC, TSH #### [address] [address] CMPon 09-04-2023 Albumin Level 3.8 G/dL Normal 3.4-4.8 [facility] ([place] Comment on above: Performed By: #### G FR, VIDH, FT3, LIPID, FT4, CMP, PSA, ANEU, ADIFF, CBC, TSH #### [address] [address] Albumin/Globulin [Mass ratio] 1.4 {ratio} Normal 1.1-2.5 [facility] ([place]) Comment on above: Performed By: #### G FR, VIDH, FT3, LIPID, FT4, CMP, PSA, ANEU, ADIFF, CBC, TSH #### [address] [address] ALP [Catalytic activity/Vol] 87 U/L Normal 40-135 [facility] ([place]) Comment on above: Performed By: #### G FR, VIDH, FT3, LIPID, FT4, CMP, PSA, ANEU, ADIFF, CBC, TSH #### [address] [address] ALT [Catalytic activity/Vol] 30 U/L Normal 16-63 [facility] ([place]) Comment on above: Performed By: #### G FR, VIDH, FT3, LIPID, FT4, CMP, PSA, ANEU, ADIFF, CBC, TSH #### [address] [address] AST [Catalytic activity/Vol] 17 U/L Normal 10-40 [facility] ([place]) Comment on above: Performed By: #### G FR, VIDH, FT3, LIPID, FT4, CMP, PSA, ANEU, ADIFF, CBC, TSH #### [address] [address] Bili Total 0.4 mg/dL Normal 0.2-1.0 [facility] ([place]) Comment on above: Result Comment: Use of this assay is not recommended for patients undergoing treatment with eltrombopag due to the potential for falsely elevated results. Performed By: #### G FR, VIDH, FT3, LIPID, FT4, CMP, PSA, ANEU, ADIFF, CBC, TSH #### [address] [address] BUN/Creatinine Ratio 12 ratio Normal 7-27 [facility] ([place]) Comment on above: Performed By: #### G FR, VIDH, FT3, LIPID, FT4, CMP, PSA, ANEU, ADIFF, CBC, TSH #### [address] [address] Calcium [Mass/Vol] 8.7 mg/dL Normal 8.4-10.2 [facility] ([place]) Comment on above: Performed By: #### G FR, VIDH, FT3, LIPID, FT4, CMP, PSA, ANEU, ADIFF, CBC, TSH #### [address] [address] Chloride [Moles/Vol] 104 mmol/L Normal 98-107 [facility] ([place]) Comment on above: Performed By: #### G FR, VIDH, FT3, LIPID, FT4, CMP, PSA, ANEU, ADIFF, CBC, TSH #### [address] [address] CO2 [Moles/Vol] 31 mmol/L Normal 23-31 [facility] ([place]) Comment on above: Performed By: #### G FR, VIDH, FT3, LIPID, FT4, CMP, PSA, ANEU, ADIFF, CBC, TSH #### [address] [address] Creatinine [Mass/Vol] 1.07 mg/dL Normal 0.70-1.30 [facility] ([place]) Comment on above: Performed By: #### G FR, VIDH, FT3, LIPID, FT4, CMP, PSA, ANEU, ADIFF, CBC, TSH #### [address] [address] Electrolyte Balance 7.0 mEq/L Normal 4.0-15.0 [facility] ([place]) Comment on above: Performed By: #### G FR, VIDH, FT3, LIPID, FT4, CMP, PSA, ANEU, ADIFF, CBC, TSH #### [address] [address] Globulin 2.8 G/dL Normal [facility] ([place]) Comment on above: Performed By: #### G FR, VIDH, FT3, LIPID, FT4, CMP, PSA, ANEU, ADIFF, CBC, TSH #### [address] [address] Glucose [Mass/Vol] 97 mg/dL Normal 80-115 [facility] ([place]) Comment on above: Performed By: #### G FR, VIDH, FT3, LIPID, FT4, CMP, PSA, ANEU, ADIFF, CBC, TSH #### [address] [address] Potassium [Moles/Vol] 4.4 mmol/L Normal 3.5-5.1 [facility] ([place]) Comment on above: Performed By: #### G FR, VIDH, FT3, LIPID, FT4, CMP, PSA, ANEU, ADIFF, CBC, TSH #### [address] [address] Sodium [Moles/Vol] 142 mmol/L Normal 136-145 [facility] ([place]) Comment on above: Performed By: #### G FR, VIDH, FT3, LIPID, FT4, CMP, PSA, ANEU, ADIFF, CBC, TSH #### [id number] [place], [place] [address] Total Protein 6.6 G/dL Normal 6.4-8.2 [facility] ([place]) Comment on above: Performed By: #### G FR, VIDH, FT3, LIPID, FT4, CMP, PSA, ANEU, ADIFF, CBC, TSH #### [id number] [place], [place] [address] Urea nitrogen [Mass/Vol] 13 mg/dL Normal 7-18 [facility] ([place]) Comment on above: Performed By: #### G FR, VIDH, FT3, LIPID, FT4, CMP, PSA, ANEU, ADIFF, CBC, TSH #### [address] [address] LABORATORYOrdered By: SYSTEM SYSTEM on 09-04-2023 Albumin BCP dye [Mass/Vol] 3.8 G/dL Normal 3.4 - 4.8 G/dL AO ADM SS Albumin/Globulin [Mass ratio] 1.4 {ratio} Normal 1.1 - 2.5 ratio AO ADM SS ALP [Catalytic activity/Vol] 87 U/L Normal 40 - 135 U/L AO ADM SS ALT With P-5'-P [Catalytic activity/Vol] 30 U/L Normal 16 - 63 U/L AO ADM SS AST With P-5'-P [Catalytic activity/Vol] 17 U/L Normal 10 - 40 U/L AO ADM SS Basophil, Absolute 0.0 103/mcL Normal 0.0 - 0.2 10^3/mcL AO Workflow SS Basophils/100 WBC (Bld) 0.5 % Normal 0.0 - 2.5 % AO Workflow SS Bilirubin [Mass/Vol] 0.4 mg/dL Normal 0.2 - 1 .0 mg/dL AO ADM SS Comment on above: Interpretive Data: U se of this assay is not recommended for patients undergoing treatment with eltrombopag due to the potential for falsely elevated results. Calcium [Mass/Vol] 8.7 mg/dL Normal 8.4 - 10. 2 mg/dL AO ADM SS Chloride [Moles/Vol] 104 mmol/L Normal 98 - 10 7 mmol/L AO ADM SS CO2 [Moles/Vol] 31 mmol/L Normal 23 - 31 mmol/L AO ADM SS Creatinine [Mass/Vol] 1.07 mg/dL Normal 0.70 - 1.30 mg/dL AO ADM SS Electrolyte Balance 7.0 mEq/L Normal 4.0 - 15 .0 mEq/L AO ADM SS Eosinophil, Absolute 0.2 103/mcL Normal 0.0 - 0 .4 10^3/mcL AO Workflow SS Eosinophils/100 WBC (Bld) 2.2 % Normal 0.0 - 7.0 % AO Workflow SS Erythrocyte distribution width (RBC) [Ratio] 13.8 % Normal 11.5 - 14.5 % AO Workflow SS GFR/1.73 sq M.predicted among blacks MDRD (S/P/Bld) [Vol rate/Area] 84 ml/min/1.73sqm Invalid Interpretation Code AO Chemistry S Comment on above: Interpretive Data: GFR Population mean for , Non- Americans Ages 20-29 = 116 mL/min/1.73 sq.m. Ages 30-39 = 107 mL/min/1.73 sq.m. Ages 40-49 = 99 mL/min/1.73 sq.m. Ages 50-59 = 93 mL/min/1.73 sq.m. Ages 60-69 = 85 mL/min/1.73 sq.m. Ages 70+ = 75 mL/min/1.73 sq.m. Chronic Kidney Disease: Less than 60 mL/min/1.73 square meters End Stage Renal Disease: Less than 15 mL/min/1.73 square meters GFR/1.73 sq M.predicted among non-blacks MDRD (S/P/Bld) [Vol rate/Area] 69 ml/min/1.73sqm Invalid Interpretation Code AO Chemistry S Comment on above: Interpretive Data: GFR Population mean for , Non- Americans Ages 20-29 = 116 mL/min/1.73 sq.m. Ages 30-39 = 107 mL/min/1.73 sq.m. Ages 40-49 = 99 mL/min/1.73 sq.m. Ages 50-59 = 93 mL/min/1.73 sq.m. Ages 60-69 = 85 mL/min/1.73 sq.m. Ages 70+ = 75 mL/min/1.73 sq.m. Chronic Kidney Disease: Less than 60 mL/min/1.73 square meters End Stage Renal Disease: Less than 15 mL/min/1.73 square meters Globulin 2.8 G/dL Invalid Interpretation Code AO ADM SS Glucose [Mass/Vol] 97 mg/dL Normal 80 - 115 mg/dL AO ADM SS Hematocrit (Bld) [Volume fraction] 44.7 % Normal 42.0 - 52.0 % AO Workflow SS Hemoglobin (Bld) [Mass/Vol] 15.1 G/dL Normal 14.0 - 18.0 G/dL AO Workflow SS Lymphocyte, Absolute 2.4 103/mcL Normal 0.8 - 3 .9 10^3/mcL AO Workflow SS Lymphocytes/100 WBC (Bld) 33.1 % Normal 10.0 - 50.0 % AO Workflow SS MCH (RBC) [Entitic mass] 29.5 pg Normal 27.0 - 31.2 pg AO Workflow SS MCHC 33.9 G/dL Normal 31.8 - 35.4 G/dL AO Workflow SS MCV (RBC) [Entitic vol] 87.1 fL Normal 80.0 - 94.0 fL AO Workflow SS Monocyte, Absolute 0.6 103/mcL Normal 0.2 - 1.0 10^3/mcL AO Workflow SS Monocytes/100 WBC (Bld) 8.4 % Normal 1.7 - 13.0 % AO Workflow SS Neutrophil, Absolute 4.0 103/mcL Normal 2.9 - 6 .2 10^3/mcL AO Workflow SS Neutrophils/100 WBC (Bld) 55.8 % Normal 37.0 - 80.0 % AO Workflow SS Platelet mean volume (Bld) [Entitic vol] 7.4 fL Normal 7.4 - 10.4 fL AO Workflow SS Platelets (Bld) [#/Vol] 219 103/mcL Normal 130 - 400 10^3/mcL AO Workflow SS Potassium [Moles/Vol] 4.4 mmol/L Normal 3.5 - 5.1 mmol/L AO ADM SS Prostate specific Ag [Mass/Vol] ng/mL Normal 0.00 - 4.00 ng/mL AO ADM SS Protein [Mass/Vol] 6.6 G/dL Normal 6.4 - 8.2 G/dL AO ADM SS RBC (Bld) [#/Vol] 5.13 106/mcL Normal 4.04 - 6.13 10^6/mcL AO Workflow SS Sodium [Moles/Vol] 142 mmol/L Normal 136 - 145 mmol/L AO ADM SS TSH Qn 5.38 m[IU]/L High 0.36 - 3.74 mcIU/mL AO ADM SS Urea nitrogen [Mass/Vol] 13 mg/dL Normal 7 - 18 mg/dL AO ADM SS Urea nitrogen/Creatinine [Mass ratio] 12 ratio Normal 7 - 27 ratio AO ADM SS WBC (Bld) [#/Vol] 7.2 103/mcL Normal 4.6 - 10.8 10^3/mcL AO Workflow SS LABORATORYOrdered By: Liz Peraza on 09-04-2023 Cholesterol [Mass/Vol] 249 mg/dL High 0 - 2 00 mg/dL AO ADM SS Comment on above: Interpretive Data: C holesterol Reference Interval: Less than 200 Desirable 200-239 Borderline high risk 240 and above High risk Cholesterol in HDL [Mass/Vol] 62 mg/dL High 40 - 60 mg/dL AO ADM SS Cholesterol in LDL [Mass/Vol] 174 mg/dL High 0 - 130 mg/dL AO ADM SS Triglyceride [Mass/Vol] 65 mg/dL Normal 0 - 150 mg/dL AO ADM SS Comment on above: Interpretive Data: T riglyceride Reference Interval: Less than 150 Normal 150-199 Borderline high risk 200-499 High risk 500 or higher Very high risk LIPIDon 09-04-2023 Cholesterol [Mass/Vol] 249 mg/dL High 0-200 [facility] ([place]) Comment on above: Result Comment: Chol esterol Reference Interval: Less than 200 Desirable 200-239 Borderline high risk 240 and above High risk Performed By: #### G FR, VIDH, FT3, LIPID, FT4, CMP, PSA, ANEU, ADIFF, CBC, TSH #### [id number] [place], [place] [address] Cholesterol in HDL [Mass/Vol] 62 mg/dL High 40-60 [facility] ([place]) Comment on above: Performed By: #### G FR, VIDH, FT3, LIPID, FT4, CMP, PSA, ANEU, ADIFF, CBC, TSH #### [place] [id number] Cholesterol in LDL [Mass/Vol] 174 mg/dL High 0-130 [facility] ([place]) Comment on above: Performed By: #### G FR, VIDH, FT3, LIPID, FT4, CMP, PSA, ANEU, ADIFF, CBC, TSH #### [place] [address] Triglyceride [Mass/Vol] 65 mg/dL Normal 0-150 A [facility] ([place]) Comment on above: Result Comment: Trig lyceride Reference Interval: Less than 150 Normal 150-199 Borderline high risk 200-499 High risk 500 or higher Very high risk Performed By: #### G FR, VIDH, FT3, LIPID, FT4, CMP, PSA, ANEU, ADIFF, CBC, TSH #### [place] [address] PSAon 09-04-2023 Prostate Specific Antigen <0.05 Normal 0.00-4.00 [facility] ([place]) Comment on above: Performed By: #### G FR, VIDH, FT3, LIPID, FT4, CMP, PSA, ANEU, ADIFF, CBC, TSH #### [address] [address] TSHon 09-04-2023 TSH Qn 5.38 m[IU]/L High 0.36-3.74 [facility] ([place]) Comment on above: Performed By: #### G FR, VIDH, FT3, LIPID, FT4, CMP, PSA, ANEU, ADIFF, CBC, TSH #### [address] [address] .Auto Diffon 08-24-2023 Basophil, Absolute 0.0 10 3/mcL Normal 0.0-0.2 [facility] ([place]) Comment on above: Performed By: #### G FR, VIDH, FT3, LIPID, FT4, CMP, PSA, ANEU, ADIFF, CBC, TSH #### [address] [address] Basophils/100 WBC (Bld) 0.5 % Normal 0.0-2.5 A [facility] ([place]) Comment on above: Performed By: #### G FR, VIDH, FT3, LIPID, FT4, CMP, PSA, ANEU, ADIFF, CBC, TSH #### [address] [address] Eosinophil, Absolute 0.2 10 3/mcL Normal 0.0-0.4 [facility] ([place]) Comment on above: Performed By: #### G FR, VIDH, FT3, LIPID, FT4, CMP, PSA, ANEU, ADIFF, CBC, TSH #### [address] [address] Eosinophils/100 WBC (Bld) 2.7 % Normal 0.0-7.0 [facility] ([place]) Comment on above: Performed By: #### G FR, VIDH, FT3, LIPID, FT4, CMP, PSA, ANEU, ADIFF, CBC, TSH #### [address] [address] Lymphocyte, Absolute 2.1 10 3/mcL Normal 0.8-3.9 [facility] ([place]) Comment on above: Performed By: #### G FR, VIDH, FT3, LIPID, FT4, CMP, PSA, ANEU, ADIFF, CBC, TSH #### [address] [address] Lymphocytes/100 WBC (Bld) 35.8 % Normal 10.0-50.0 [facility] ([place]) Comment on above: Performed By: #### G FR, VIDH, FT3, LIPID, FT4, CMP, PSA, ANEU, ADIFF, CBC, TSH #### [address] [address] Monocyte, Absolute 0.5 10 3/mcL Normal 0.2-1.0 [facility] ([place]) Comment on above: Performed By: #### G FR, VIDH, FT3, LIPID, FT4, CMP, PSA, ANEU, ADIFF, CBC, TSH #### [address] [address] Monocytes/100 WBC (Bld) 7.8 % Normal 1.7-13.0 A [facility] ([place]) Comment on above: Performed By: #### G FR, VIDH, FT3, LIPID, FT4, CMP, PSA, ANEU, ADIFF, CBC, TSH #### [address] [address] Neutrophils/100 WBC (Bld) 53.2 % Normal 37.0-80.0 [facility] ([place]) Comment on above: Performed By: #### G FR, VIDH, FT3, LIPID, FT4, CMP, PSA, ANEU, ADIFF, CBC, TSH #### [address] [address] .GFRon 08-24-2023 GFR 77 ml/min/1.73sqm Normal [facility] ([place]) Comment on above: Result Comment: GFR Population mean for , Non- Americans Ages 20-29 = 116 mL/min/1.73 sq.m. Ages 30-39 = 107 mL/min/1.73 sq.m. Ages 40-49 = 99 mL/min/1.73 sq.m. Ages 50-59 = 93 mL/min/1.73 sq.m. Ages 60-69 = 85 mL/min/1.73 sq.m. Ages 70+ = 75 mL/min/1.73 sq.m. Chronic Kidney Disease: Less than 60 mL/min/1.73 square meters End Stage Renal Disease: Less than 15 mL/min/1.73 square meters Performed By: #### G FR, VIDH, FT3, LIPID, FT4, CMP, PSA, ANEU, ADIFF, CBC, TSH #### [address] [address] GFR Non- 63 ml/min/1.73sqm Normal [facility] ([place]) Comment on above: Result Comment: GFR Population mean for , Non- Americans Ages 20-29 = 116 mL/min/1.73 sq.m. Ages 30-39 = 107 mL/min/1.73 sq.m. Ages 40-49 = 99 mL/min/1.73 sq.m. Ages 50-59 = 93 mL/min/1.73 sq.m. Ages 60-69 = 85 mL/min/1.73 sq.m. Ages 70+ = 75 mL/min/1.73 sq.m. Chronic Kidney Disease: Less than 60 mL/min/1.73 square meters End Stage Renal Disease: Less than 15 mL/min/1.73 square meters Performed By: #### G FR, VIDH, FT3, LIPID, FT4, CMP, PSA, ANEU, ADIFF, CBC, TSH #### [place] [id number] .NEUABSon 08-24-2023 Neutrophil, Absolute 3.2 10 3/mcL Normal 2.9-6.2 [facility] ([place]) Comment on above: Performed By: #### G FR, VIDH, FT3, LIPID, FT4, CMP, PSA, ANEU, ADIFF, CBC, TSH #### [place] [address] CBCon 08-24-2023 Erythrocyte distribution width (RBC) [Ratio] 13.7 % Normal 11.5-14.5 [facility] ([place]) Comment on above: Performed By: #### G FR, VIDH, FT3, LIPID, FT4, CMP, PSA, ANEU, ADIFF, CBC, TSH #### [place] [address] Hematocrit (Bld) [Volume fraction] 42.1 % Normal 42.0-52.0 [facility] ([place]) Comment on above: Performed By: #### G FR, VIDH, FT3, LIPID, FT4, CMP, PSA, ANEU, ADIFF, CBC, TSH #### [place] [address] Hgb 14.9 G/dL Normal 14.0-18.0 [facility] ([place]) Comment on above: Performed By: #### G FR, VIDH, FT3, LIPID, FT4, CMP, PSA, ANEU, ADIFF, CBC, TSH #### [address] [address] MCH (RBC) [Entitic mass] 29.9 pg Normal 27.0-31.2 [facility] ([place]) Comment on above: Performed By: #### G FR, VIDH, FT3, LIPID, FT4, CMP, PSA, ANEU, ADIFF, CBC, TSH #### [address] [address] MCHC 35.5 G/dL High 31.8-35.4 [facility] ([place]) Comment on above: Performed By: #### G FR, VIDH, FT3, LIPID, FT4, CMP, PSA, ANEU, ADIFF, CBC, TSH #### [address] [address] MCV (RBC) [Entitic vol] 84.3 fL Normal 80.0-94.0 A [facility] ([place]) Comment on above: Performed By: #### G FR, VIDH, FT3, LIPID, FT4, CMP, PSA, ANEU, ADIFF, CBC, TSH #### [address] [address] Platelet 218 10 3/mcL Normal 130-400 [facility] ([place]) Comment on above: Performed By: #### G FR, VIDH, FT3, LIPID, FT4, CMP, PSA, ANEU, ADIFF, CBC, TSH #### [address] [address] Platelet mean volume (Bld) [Entitic vol] 7.4 fL Normal 7.4-10.4 [facility] ([place]) Comment on above: Performed By: #### G FR, VIDH, FT3, LIPID, FT4, CMP, PSA, ANEU, ADIFF, CBC, TSH #### [address] [address] RBC 4.99 10 6/mcL Normal 4.04-6.13 [facility] ([place]) Comment on above: Performed By: #### G FR, VIDH, FT3, LIPID, FT4, CMP, PSA, ANEU, ADIFF, CBC, TSH #### [address] [address] WBC 6.0 10 3/mcL Normal 4.6-10.8 [facility] ([place]) Comment on above: Performed By: #### G FR, VIDH, FT3, LIPID, FT4, CMP, PSA, ANEU, ADIFF, CBC, TSH #### [address] [address] CMPon 08-24-2023 Albumin Level 3.7 G/dL Normal 3.4-4.8 [facility] ([place]) Comment on above: Performed By: #### G FR, VIDH, FT3, LIPID, FT4, CMP, PSA, ANEU, ADIFF, CBC, TSH #### [address] [address] Albumin/Globulin [Mass ratio] 1.3 {ratio} Normal 1.1-2.5 [facility] ([place]) Comment on above: Performed By: #### G FR, VIDH, FT3, LIPID, FT4, CMP, PSA, ANEU, ADIFF, CBC, TSH #### [address] [address] ALP [Catalytic activity/Vol] 88 U/L Normal 40-135 [facility] ([place]) Comment on above: Performed By: #### G FR, VIDH, FT3, LIPID, FT4, CMP, PSA, ANEU, ADIFF, CBC, TSH #### [address] [address] ALT [Catalytic activity/Vol] 34 U/L Normal 16-63 [facility] ([place]) Comment on above: Performed By: #### G FR, VIDH, FT3, LIPID, FT4, CMP, PSA, ANEU, ADIFF, CBC, TSH #### [address] [address] AST [Catalytic activity/Vol] 19 U/L Normal 10-40 [facility] ([place]) Comment on above: Performed By: #### G FR, VIDH, FT3, LIPID, FT4, CMP, PSA, ANEU, ADIFF, CBC, TSH #### [address] [address] Bili Total 0.4 mg/dL Normal 0.2-1.0 [facility] ([place]) Comment on above: Result Comment: Use of this assay is not recommended for patients undergoing treatment with eltrombopag due to the potential for falsely elevated results. Performed By: #### G FR, VIDH, FT3, LIPID, FT4, CMP, PSA, ANEU, ADIFF, CBC, TSH #### [address] [address] BUN/Creatinine Ratio 13 ratio Normal 7-27 [facility] ([place]) Comment on above: Performed By: #### G FR, VIDH, FT3, LIPID, FT4, CMP, PSA, ANEU, ADIFF, CBC, TSH #### [address] [address] Calcium [Mass/Vol] 8.9 mg/dL Normal 8.4-10.2 [facility] ([place]) Comment on above: Performed By: #### G FR, VIDH, FT3, LIPID, FT4, CMP, PSA, ANEU, ADIFF, CBC, TSH #### [address] [address] Chloride [Moles/Vol] 107 mmol/L Normal 98-107 [facility] ([place]) Comment on above: Performed By: #### G FR, VIDH, FT3, LIPID, FT4, CMP, PSA, ANEU, ADIFF, CBC, TSH #### [address] [address] CO2 [Moles/Vol] 28 mmol/L Normal 23-31 [facility] ([place]) Comment on above: Performed By: #### G FR, VIDH, FT3, LIPID, FT4, CMP, PSA, ANEU, ADIFF, CBC, TSH #### [address] [address] Creatinine [Mass/Vol] 1.15 mg/dL Normal 0.70-1.30 [facility] ([place]) Comment on above: Performed By: #### G FR, VIDH, FT3, LIPID, FT4, CMP, PSA, ANEU, ADIFF, CBC, TSH #### [address] [address] Electrolyte Balance 10.0 mEq/L Normal 4.0-15.0 [facility] ([place]) Comment on above: Performed By: #### G FR, VIDH, FT3, LIPID, FT4, CMP, PSA, ANEU, ADIFF, CBC, TSH #### [address] [address] Globulin 2.9 G/dL Normal [facility] ([place]) Comment on above: Performed By: #### G FR, VIDH, FT3, LIPID, FT4, CMP, PSA, ANEU, ADIFF, CBC, TSH #### [address] [address] Glucose [Mass/Vol] 104 mg/dL Normal 80-115 [facility] ([place]) Comment on above: Performed By: #### G FR, VIDH, FT3, LIPID, FT4, CMP, PSA, ANEU, ADIFF, CBC, TSH #### [address] [address] Potassium [Moles/Vol] 4.2 mmol/L Normal 3.5-5.1 [facility] ([place]) Comment on above: Performed By: #### G FR, VIDH, FT3, LIPID, FT4, CMP, PSA, ANEU, ADIFF, CBC, TSH #### [address] [address] Sodium [Moles/Vol] 145 mmol/L Normal 136-145 [facility] ([place]) Comment on above: Performed By: #### G FR, VIDH, FT3, LIPID, FT4, CMP, PSA, ANEU, ADIFF, CBC, TSH #### [address] [address] Total Protein 6.6 G/dL Normal 6.4-8.2 [facility] ([place]) Comment on above: Performed By: #### G FR, VIDH, FT3, LIPID, FT4, CMP, PSA, ANEU, ADIFF, CBC, TSH #### [place] [address] [place], [place] [address] Urea nitrogen [Mass/Vol] 15 mg/dL Normal 7-18 [facility] ([place]) Comment on above: Performed By: #### G FR, VIDH, FT3, LIPID, FT4, CMP, PSA, ANEU, ADIFF, CBC, TSH #### [place] [id number] [place], [place] [address] LABORATORYOrdered By: SYSTEM SYSTEM on 08-24-2023 Albumin BCP dye [Mass/Vol] 3.7 G/dL Normal 3.4 - 4.8 G/dL AO ADM SS Albumin/Globulin [Mass ratio] 1.3 {ratio} Normal 1.1 - 2.5 ratio AO ADM SS ALP [Catalytic activity/Vol] 88 U/L Normal 40 - 135 U/L AO ADM SS ALT With P-5'-P [Catalytic activity/Vol] 34 U/L Normal 16 - 63 U/L AO ADM SS AST With P-5'-P [Catalytic activity/Vol] 19 U/L Normal 10 - 40 U/L AO ADM SS Basophil, Absolute 0.0 103/mcL Normal 0.0 - 0.2 10^3/mcL AO Workflow SS Basophils/100 WBC (Bld) 0.5 % Normal 0.0 - 2.5 % AO Workflow SS Bilirubin [Mass/Vol] 0.4 mg/dL Normal 0.2 - 1 .0 mg/dL AO ADM SS Comment on above: Interpretive Data: U se of this assay is not recommended for patients undergoing treatment with eltrombopag due to the potential for falsely elevated results. Calcium [Mass/Vol] 8.9 mg/dL Normal 8.4 - 10. 2 mg/dL AO ADM SS Chloride [Moles/Vol] 107 mmol/L Normal 98 - 10 7 mmol/L AO ADM SS CO2 [Moles/Vol] 28 mmol/L Normal 23 - 31 mmol/L AO ADM SS Creatinine [Mass/Vol] 1.15 mg/dL Normal 0.70 - 1.30 mg/dL AO ADM SS Electrolyte Balance 10.0 mEq/L Normal 4.0 - 15 .0 mEq/L AO ADM SS Eosinophil, Absolute 0.2 103/mcL Normal 0.0 - 0 .4 10^3/mcL AO Workflow SS Eosinophils/100 WBC (Bld) 2.7 % Normal 0.0 - 7.0 % AO Workflow SS Erythrocyte distribution width (RBC) [Ratio] 13.7 % Normal 11.5 - 14.5 % AO Workflow SS GFR/1.73 sq M.predicted among blacks MDRD (S/P/Bld) [Vol rate/Area] 77 ml/min/1.73sqm Invalid Interpretation Code AO Chemistry S Comment on above: Interpretive Data: GFR Population mean for , Non- Americans Ages 20-29 = 116 mL/min/1.73 sq.m. Ages 30-39 = 107 mL/min/1.73 sq.m. Ages 40-49 = 99 mL/min/1.73 sq.m. Ages 50-59 = 93 mL/min/1.73 sq.m. Ages 60-69 = 85 mL/min/1.73 sq.m. Ages 70+ = 75 mL/min/1.73 sq.m. Chronic Kidney Disease: Less than 60 mL/min/1.73 square meters End Stage Renal Disease: Less than 15 mL/min/1.73 square meters GFR/1.73 sq M.predicted among non-blacks MDRD (S/P/Bld) [Vol rate/Area] 63 ml/min/1.73sqm Invalid Interpretation Code AO Chemistry S Comment on above: Interpretive Data: GFR Population mean for , Non- Americans Ages 20-29 = 116 mL/min/1.73 sq.m. Ages 30-39 = 107 mL/min/1.73 sq.m. Ages 40-49 = 99 mL/min/1.73 sq.m. Ages 50-59 = 93 mL/min/1.73 sq.m. Ages 60-69 = 85 mL/min/1.73 sq.m. Ages 70+ = 75 mL/min/1.73 sq.m. Chronic Kidney Disease: Less than 60 mL/min/1.73 square meters End Stage Renal Disease: Less than 15 mL/min/1.73 square meters Globulin 2.9 G/dL Invalid Interpretation Code AO ADM SS Glucose [Mass/Vol] 104 mg/dL Normal 80 - 115 mg/dL AO ADM SS Hematocrit (Bld) [Volume fraction] 42.1 % Normal 42.0 - 52.0 % AO Workflow SS Hemoglobin (Bld) [Mass/Vol] 14.9 G/dL Normal 14.0 - 18.0 G/dL AO Workflow SS Lymphocyte, Absolute 2.1 103/mcL Normal 0.8 - 3 .9 10^3/mcL AO Workflow SS Lymphocytes/100 WBC (Bld) 35.8 % Normal 10.0 - 50.0 % AO Workflow SS MCH (RBC) [Entitic mass] 29.9 pg Normal 27.0 - 31.2 pg AO Workflow SS MCHC 35.5 G/dL High 31.8 - 35.4 G/dL AO Workflow SS MCV (RBC) [Entitic vol] 84.3 fL Normal 80.0 - 94.0 fL AO Workflow SS Monocyte, Absolute 0.5 103/mcL Normal 0.2 - 1.0 10^3/mcL AO Workflow SS Monocytes/100 WBC (Bld) 7.8 % Normal 1.7 - 13.0 % AO Workflow SS Neutrophil, Absolute 3.2 103/mcL Normal 2.9 - 6 .2 10^3/mcL AO Workflow SS Neutrophils/100 WBC (Bld) 53.2 % Normal 37.0 - 80.0 % AO Workflow SS Platelet mean volume (Bld) [Entitic vol] 7.4 fL Normal 7.4 - 10.4 fL AO Workflow SS Platelets (Bld) [#/Vol] 218 103/mcL Normal 130 - 400 10^3/mcL AO Workflow SS Potassium [Moles/Vol] 4.2 mmol/L Normal 3.5 - 5.1 mmol/L AO ADM SS Protein [Mass/Vol] 6.6 G/dL Normal 6.4 - 8.2 G/dL AO ADM SS RBC (Bld) [#/Vol] 4.99 106/mcL Normal 4.04 - 6.13 10^6/mcL AO Workflow SS Sodium [Moles/Vol] 145 mmol/L Normal 136 - 145 mmol/L AO ADM SS TSH Qn 3.53 m[IU]/L Normal 0.36 - 3.74 mcIU/mL AO ADM SS Urea nitrogen [Mass/Vol] 15 mg/dL Normal 7 - 18 mg/dL AO ADM SS Urea nitrogen/Creatinine [Mass ratio] 13 ratio Normal 7 - 27 ratio AO ADM SS WBC (Bld) [#/Vol] 6.0 103/mcL Normal 4.6 - 10.8 10^3/mcL AO Workflow SS LABORATORYOrdered By: Liz Peraza on 08-24-2023 Cholesterol [Mass/Vol] 292 mg/dL High 0 - 2 00 mg/dL AO ADM SS Comment on above: Interpretive Data: C holesterol Reference Interval: Less than 200 Desirable 200-239 Borderline high risk 240 and above High risk Cholesterol in HDL [Mass/Vol] 54 mg/dL Normal 40 - 60 mg/dL AO ADM SS Cholesterol in LDL [Mass/Vol] 217 mg/dL High 0 - 130 mg/dL AO ADM SS Triglyceride [Mass/Vol] 104 mg/dL Normal 0 - 150 mg/dL AO ADM SS Comment on above: Interpretive Data: T riglyceride Reference Interval: Less than 150 Normal 150-199 Borderline high risk 200-499 High risk 500 or higher Very high risk LIPIDon 08-24-2023 Cholesterol [Mass/Vol] 292 mg/dL High 0-200 [facility] ([place]) Comment on above: Result Comment: Chol esterol Reference Interval: Less than 200 Desirable 200-239 Borderline high risk 240 and above High risk Performed By: #### G FR, VIDH, FT3, LIPID, FT4, CMP, PSA, ANEU, ADIFF, CBC, TSH #### [address] [address] Cholesterol in HDL [Mass/Vol] 54 mg/dL Normal 40-60 [facility] ([place]) Comment on above: Performed By: #### G FR, VIDH, FT3, LIPID, FT4, CMP, PSA, ANEU, ADIFF, CBC, TSH #### [address] [address] Cholesterol in LDL [Mass/Vol] 217 mg/dL High 0-130 [facility] ([place]) Comment on above: Performed By: #### G FR, VIDH, FT3, LIPID, FT4, CMP, PSA, ANEU, ADIFF, CBC, TSH #### [address] [address] Triglyceride [Mass/Vol] 104 mg/dL Normal 0-150 A [facility] ([place]) Comment on above: Result Comment: Trig lyceride Reference Interval: Less than 150 Normal 150-199 Borderline high risk 200-499 High risk 500 or higher Very high risk Performed By: #### G FR, VIDH, FT3, LIPID, FT4, CMP, PSA, ANEU, ADIFF, CBC, TSH #### [facility] [address] [place], [place] [address] TSHon 08-24-2023 TSH Qn 3.53 m[IU]/L Normal 0.36-3.74 [facility] ([place]) Comment on above: Performed By: #### G FR, VIDH, FT3, LIPID, FT4, CMP, PSA, ANEU, ADIFF, CBC, TSH #### [id number] [place], [place] [address] Albumin Elph [Mass/Vol]Order ed By: Geo Deleon on 07-10-2023 Albumin [Mass/Vol] 4.1 g/dL 2.9-4.4 [facility] Basophil percentageOrdered B y: Geo Deleon on 07-10-2023 Amylase [Catalytic activity/Vol] 62 U/L 25-115 [facility] Basophil percentage 1.9 mg/dL 2.5-4.9 [facility] Bilirubin [Mass/Vol] 0.40 mg/dL 0.20-1.00 [facility] Comment on above: For patients on eltr ombopag therapy, use of Dimension [place] TBIL is not recommended. Chloride [Moles/Vol] 110 mmol/L 98-107 [facility] Glucose [Mass/Vol] 95 mg/dL 74-106 [facility] Potassium [Moles/Vol] 3.9 mmol/L 3.5-5.1 [facility] Protein [Mass/Vol] 6.8 g/dL 6.4-8.2 [facility] Sodium [Moles/Vol] 139 mmol/L 136-145 [facility] Erythrocyte sedimentation ra teOrdered By: Geo Deleon on 07-10-2023 ESR (Bld) [Velocity] 3 mm/h 0-20 [facility] Interpretation of serum or p lasma protein pattern by immunofixation (narrative resultOrdered By: Geo Deleon on 07-10-2023 Protein Fractions Immunofixation Stevie [Interp] Not Observed g/dL Not Observed [facility] - Chemistry and C hemistry - challengeOrdered By: Geo Deleon on 07-10-2023 Albumin/Globulin [Mass ratio] 1.3 {ratio} 0.9-2.4 [facility] ALP [Catalytic activity/Vol] 76 U/L 45-117 [facility] ALT [Catalytic activity/Vol] 27 U/L 16-61 [facility] CO2 [Moles/Vol] 26.0 mmol/L 21.0-32.0 [facility] Lipase [Catalytic activity/Vol] 36 U/L 13-75 [facility] Comment on above: Please note:LIPASE r evised reference range effective 22. New Lipase methodology. Expected to produce lower values than the previous assay method. NEW Reference Range: 13 - 75 U/L Magnesium [Mass/Vol] 2.3 mg/dL 1.6-2.6 [facility] Urea nitrogen/Creatinine [Mass ratio] 13.4 mg/mg 10-20 [facility] No Panel InformationOrdered By: Geo Deleon on 07-10-2023 Addendum Document Comment . [facility] Comment on above: Protein electrophore sis scan will follow via computer,mail, or corporate director delivery. C-Reactive Protein Extended Range < 2.90 mg/L 0.0-3.0 [facility] Comment on above: C-Reactive Protein ( CRP) provides useful information for thediagnosis, therapy and monitoring of inflammatory processesand associated diseases. For the evaluation of Relative Riskfor Cardiovascular Disease, a High Sensitivity CRP (HSCRP)should be ordered. Endomysial IgA Antibody Negative Negative [facility] Estimated GFR (MDRD) Amer 100 mL/min >60 [facility] Comment on above: GFR Calc Estimated GFR (MDRD) Non-Af Amer 82 mL/min >60 [facility] Comment on above: Non- GFR Calc Immunoglobulin G4 25 mg/dL 2-96 [facility] Comment on above: Performed at: [facility] [address] [id number] Director: Mahesh Medley PhD, Phone: [phone] Immunoglobulin M 57 mg/dL 20-172 [facility] Serum IgG subclass 1 measure ment (mass/volume)Ordered By: Geo Deleon on 07-10-2023 IgG subclass 1 (S) [Mass/Vol] 419 mg/dL 248-810 [facility] Serum IgG subclass 2 measure ment (mass/volume)Ordered By: Geo Deleon on 07-10-2023 IgG subclass 2 (S) [Mass/Vol] 185 mg/dL 130-555 [facility] Serum IgG subclass 3 measure ment (mass/volume)Ordered By: Geo Deleon on 07-10-2023 IgG subclass 3 (S) [Mass/Vol] 13 mg/dL 15-102 [facility] Serum tyrdx-0-arerpuvu measu rement by electrophoresisOrdered By: Geo Deleon on 07-10-2023 Alpha 1 globulin Elph [Mass/Vol] 0.2 g/dL 0.0-0.4 [facility] Alpha 1 globulin Elph [Mass/Vol] 0.6 g/dL 0.4-1.0 [facility] Serum globulin measurement ( mass/volume)Ordered By: Geo Deleon on 07-10-2023 Globulin (S) [Mass/Vol] 2.3 g/dL 2.2-3.9 [facility] Serum or plasma IgA measurem ent (mass/volume)Ordered By: Geo Deleon on 07-10-2023 IgA [Mass/Vol] 116 mg/dL 61-437 [facility] Serum or plasma IgG measurem ent (mass/volume)Ordered By: Geo Deleon on 07-10-2023 IgG [Mass/Vol] 651 mg/dL 603-1613 [facility] IgG [Mass/Vol] Not Reportable [facility] Serum or plasma beta globuli n measurement by electrophoresis (mass/volume)Ordered By: Geo Deleon on 07-10-2023 Beta globulin Elph [Mass/Vol] 0.9 g/dL 0.7-1.3 [facility] Serum or plasma calcium raquel urement (mass/volume)Ordered By: Geo Deleon on 07-10-2023 Calcium [Mass/Vol] 9.0 mg/dL 8.5-10.1 [facility] Serum or plasma creatinine m easurement (mass/volume)Ordered By: Geo Deleon on 07-10-2023 Creatinine [Mass/Vol] 0.97 mg/dL 0.70-1.30 [facility] Comment on above: The validity of the calculated GFR & GFRAA in patients over 70 years has not been determined. Clinical correlation is essential. Serum or plasma gamma globul in measurement by electrophoresis (mass/volume)Ordered By: Geo Deleon on 07-10-2023 Gamma globulin Elph [Mass/Vol] 0.6 g/dL 0.4-1.8 [facility] Serum or plasma immunoelectr ophoresis interpretation (nominal result)Ordered By: Geo Deleon on 07-10-2023 Interpretation IEP [Interp] Comment . [facility] Comment on above: No monoclonality det ected. Serum or plasma urea nitroge n measurement (mass/volume)Ordered By: Geo Deleon on 07-10-2023 Urea nitrogen [Mass/Vol] 13 mg/dL 7-18 [facility] Serum tissue transglutaminas e IgA antibody assay (units/volume)Ordered By: Geo Deleon on 07-10-2023 tTG IgA Qn (S) <2 U/mL 0-3 [facility] Comment on above: Negative 0 - 3 Weak Positive 4 - 10 Positive >10 Tissue Transglutaminase (tTG) has been identified as the endomysial antigen. Studies have demonstr- ated that endomysial IgA antibodies have over 99% specificity for gluten sensitive enteropathy. Thin prep Papanicolaou smear with manual screeningOrdered By: Geo Deleon on 07-10-2023 Thin prep Papanicolaou smear with manual screening 3.8 g/dL 3.2-5.0 [facility] Thin prep Papanicolaou smear with manual screening 17 U/L 15-37 [facility] Thin prep Papanicolaou smear with manual screening 3 5-15 [facility] Thin prep Papanicolaou smear with manual screening 1.8 0.7-1.7 [facility] Total protein bloodOrdered B y: Geo Deleon on 07-10-2023 Protein [Mass/Vol] 6.4 g/dL 6.0-8.5 [facility] Absolute lymphocyte countOrd ered By: Geo Deleon on 07-08-2023 Lymphocytes Auto (Unsp spec) [#/Vol] 1.86 10*3/uL 0.83-4.51 [facility] Automated lymphocyte count a s percentage of total leukocytesOrdered By: Geo Deleon on 07-08-2023 Lymphocytes/100 WBC Auto (Unsp spec) 27.4 % 19-41 [facility] Basophil percentageOrdered B y: Geo Deleon on 07-08-2023 Basophils/100 WBC (Bld) 0.7 % 0-1 [facility] Eosinophils/100 WBC (Bld) 1.8 % 0-5 [facility] Hemoglobin (Bld) [Mass/Vol] 13.4 g/dL 13.0-16.5 [facility] Monocytes/100 WBC (Bld) 7.1 % 0-10 [facility] Neutrophils (Bld) [#/Vol] 4.3 10*3/uL 2.0-7.7 [facility] Neutrophils/100 WBC (Bld) 62.9 % 47-70 [facility] WBC (Bld) [#/Vol] 6.8 10*3/uL 4.4-11.0 [facility] Determination of erythrocyte mean corpuscular volume (MCV)Ordered By: Geo Deleon on 07-08-2023 MCV (RBC) [Entitic vol] 86.6 fL 80-94 [facility] Erythrocyte distribution wid th ratioOrdered By: Geo Deleon on 07-08-2023 Erythrocyte distribution width (RBC) [Ratio] 13.1 % 11.6-14.6 [facility] Erythrocyte distribution wid th standard deviationOrdered By: Geo Deleon on 07-08-2023 Erythrocyte distribution width (RBC) [Entitic vol] 41.1 fL 35.1-43.9 [facility] Hematocrit Auto (Bld) [Volum e fraction]Ordered By: Geo Deleon on 07-08-2023 Hematocrit (Bld) [Volume fraction] 40.2 % 40-54 [facility] Immature granulocytes/100 WB C Auto (Bld)Ordered By: Geo Deleon on 07-08-2023 Immature granulocytes/100 WBC (Bld) 0.100 % 0.0-0.9 [facility] Comment on above: IG% - Immature Granu locytes (promyelocytes, myelocytes and metamyelocytes) > 1% indicates that a LEFT SHIFT is Present. Laboratory - Hematology and Cell countsOrdered By: Geo Deleon on 07-08-2023 MCH (RBC) [Entitic mass] 28.9 pg 27.0-32.0 [facility] MCHC (RBC) [Mass/Vol] 33.3 g/dL 32-36 [facility] Nucleated RBC/100 WBC (Bld) [Ratio] 0 % 0-5 [facility] Platelet mean volume (Bld) [Entitic vol] 9.6 fL 6.2-12.0 [facility] Platelets (Bld) [#/Vol] 206 10*3/uL 150-450 [facility] RBC Auto (Bld) [#/Vol]Ordere d By: Geo Deleon on 07-08-2023 RBC (Bld) [#/Vol] 4.64 10*6/uL 4.6-6.2 [facility] .GFRon 05-04-2023 GFR 95 ml/min/1.73sqm Normal [facility] ([place]) Comment on above: Result Comment: GFR Population mean for , Non- Americans Ages 20-29 = 116 mL/min/1.73 sq.m. Ages 30-39 = 107 mL/min/1.73 sq.m. Ages 40-49 = 99 mL/min/1.73 sq.m. Ages 50-59 = 93 mL/min/1.73 sq.m. Ages 60-69 = 85 mL/min/1.73 sq.m. Ages 70+ = 75 mL/min/1.73 sq.m. Chronic Kidney Disease: Less than 60 mL/min/1.73 square meters End Stage Renal Disease: Less than 15 mL/min/1.73 square meters Performed By: #### G FR, VIDH, FT3, LIPID, FT4, CMP, PSA, ANEU, ADIFF, CBC, TSH #### [address] [address] GFR Non- 78 ml/min/1.73sqm Normal [facility] ([place]) Comment on above: Result Comment: GFR Population mean for , Non- Americans Ages 20-29 = 116 mL/min/1.73 sq.m. Ages 30-39 = 107 mL/min/1.73 sq.m. Ages 40-49 = 99 mL/min/1.73 sq.m. Ages 50-59 = 93 mL/min/1.73 sq.m. Ages 60-69 = 85 mL/min/1.73 sq.m. Ages 70+ = 75 mL/min/1.73 sq.m. Chronic Kidney Disease: Less than 60 mL/min/1.73 square meters End Stage Renal Disease: Less than 15 mL/min/1.73 square meters Performed By: #### G FR, VIDH, FT3, LIPID, FT4, CMP, PSA, ANEU, ADIFF, CBC, TSH #### [address] [address] CMPon 05-04-2023 Albumin Level 3.5 G/dL Normal 3.4-4.8 [facility] ([place]) Comment on above: Performed By: #### G FR, VIDH, FT3, LIPID, FT4, CMP, PSA, ANEU, ADIFF, CBC, TSH #### [address] [address] Albumin/Globulin [Mass ratio] 1.2 {ratio} Normal 1.1-2.5 [facility] ([place]) Comment on above: Performed By: #### G FR, VIDH, FT3, LIPID, FT4, CMP, PSA, ANEU, ADIFF, CBC, TSH #### [address] [address] ALP [Catalytic activity/Vol] 94 U/L Normal 40-135 [facility] ([place]) Comment on above: Performed By: #### G FR, VIDH, FT3, LIPID, FT4, CMP, PSA, ANEU, ADIFF, CBC, TSH #### [address] [address] ALT [Catalytic activity/Vol] 27 U/L Normal 16-63 [facility] ([place]) Comment on above: Performed By: #### G FR, VIDH, FT3, LIPID, FT4, CMP, PSA, ANEU, ADIFF, CBC, TSH #### [address] [address] AST [Catalytic activity/Vol] 22 U/L Normal 10-40 [facility] ([place] Comment on above: Performed By: #### G FR, VIDH, FT3, LIPID, FT4, CMP, PSA, ANEU, ADIFF, CBC, TSH #### [address] [address] Bili Total 0.7 mg/dL Normal 0.2-1.0 [facility] ([place]) Comment on above: Result Comment: Use of this assay is not recommended for patients undergoing treatment with eltrombopag due to the potential for falsely elevated results. Performed By: #### G FR, VIDH, FT3, LIPID, FT4, CMP, PSA, ANEU, ADIFF, CBC, TSH #### [address] [address] BUN/Creatinine Ratio 16 ratio Normal 7-27 [facility] ([place]) Comment on above: Performed By: #### G FR, VIDH, FT3, LIPID, FT4, CMP, PSA, ANEU, ADIFF, CBC, TSH #### [address] [address] Calcium [Mass/Vol] 8.7 mg/dL Normal 8.4-10.2 [facility] ([place]) Comment on above: Performed By: #### G FR, VIDH, FT3, LIPID, FT4, CMP, PSA, ANEU, ADIFF, CBC, TSH #### [address] [address] Chloride [Moles/Vol] 105 mmol/L Normal 98-107 [facility] ([place] Comment on above: Performed By: #### G FR, VIDH, FT3, LIPID, FT4, CMP, PSA, ANEU, ADIFF, CBC, TSH #### [address] [address] CO2 [Moles/Vol] 25 mmol/L Normal 23-31 [facility] ([place] Comment on above: Performed By: #### G FR, VIDH, FT3, LIPID, FT4, CMP, PSA, ANEU, ADIFF, CBC, TSH #### [address] [address] Creatinine [Mass/Vol] 0.96 mg/dL Normal 0.70-1.30 [facility] ([place]) Comment on above: Performed By: #### G FR, VIDH, FT3, LIPID, FT4, CMP, PSA, ANEU, ADIFF, CBC, TSH #### [place] [id number] Electrolyte Balance 10.0 mEq/L Normal 4.0-15.0 [facility] ([place]) Comment on above: Performed By: #### G FR, VIDH, FT3, LIPID, FT4, CMP, PSA, ANEU, ADIFF, CBC, TSH #### [address] [address] Globulin 2.8 G/dL Normal [facility] ([place] Comment on above: Performed By: #### G FR, VIDH, FT3, LIPID, FT4, CMP, PSA, ANEU, ADIFF, CBC, TSH #### [address] [address] Glucose [Mass/Vol] 107 mg/dL Normal 80-115 [facility] ([place] Comment on above: Performed By: #### G FR, VIDH, FT3, LIPID, FT4, CMP, PSA, ANEU, ADIFF, CBC, TSH #### [address] [address] Potassium [Moles/Vol] 4.5 mmol/L Normal 3.5-5.1 [facility] ([place]) Comment on above: Performed By: #### G FR, VIDH, FT3, LIPID, FT4, CMP, PSA, ANEU, ADIFF, CBC, TSH #### [address] [address] Sodium [Moles/Vol] 140 mmol/L Normal 136-145 [facility] ([place] Comment on above: Performed By: #### G FR, VIDH, FT3, LIPID, FT4, CMP, PSA, ANEU, ADIFF, CBC, TSH #### [address] [address] Total Protein 6.3 G/dL Low 6.4-8.2 [facility] ([place] Comment on above: Performed By: #### G FR, VIDH, FT3, LIPID, FT4, CMP, PSA, ANEU, ADIFF, CBC, TSH #### [place] [address] [place], [place] [address] Urea nitrogen [Mass/Vol] 15 mg/dL Normal 7-18 [facility] ([place] Comment on above: Performed By: #### G FR, VIDH, FT3, LIPID, FT4, CMP, PSA, ANEU, ADIFF, CBC, TSH #### [address] [address] LABORATORYOrdered By: SYSTEM SYSTEM on 05-04-2023 25-hydroxyvitamin D3 [Mass/Vol] 27.8 ng/mL Invalid Interpretation Code AO ADM SS Comment on above: Interpretive Data: I nterpretive Values Based on Total 25(OH) Vitamin D: Deficient <20 ng/mL Insufficient 20 - <30 ng/mL Sufficient 30-100 ng/mL Albumin BCP dye [Mass/Vol] 3.5 G/dL Normal 3.4 - 4.8 G/dL AO ADM SS Albumin/Globulin [Mass ratio] 1.2 {ratio} Normal 1.1 - 2.5 ratio AO ADM SS ALP [Catalytic activity/Vol] 94 U/L Normal 40 - 135 U/L AO ADM SS ALT With P-5'-P [Catalytic activity/Vol] 27 U/L Normal 16 - 63 U/L AO ADM SS AST With P-5'-P [Catalytic activity/Vol] 22 U/L Normal 10 - 40 U/L AO ADM SS Bilirubin [Mass/Vol] 0.7 mg/dL Normal 0.2 - 1 .0 mg/dL AO ADM SS Comment on above: Interpretive Data: U se of this assay is not recommended for patients undergoing treatment with eltrombopag due to the potential for falsely elevated results. Calcium [Mass/Vol] 8.7 mg/dL Normal 8.4 - 10. 2 mg/dL AO ADM SS Chloride [Moles/Vol] 105 mmol/L Normal 98 - 10 7 mmol/L AO ADM SS CO2 [Moles/Vol] 25 mmol/L Normal 23 - 31 mmol/L AO ADM SS Creatinine [Mass/Vol] 0.96 mg/dL Normal 0.70 - 1.30 mg/dL AO ADM SS Electrolyte Balance 10.0 mEq/L Normal 4.0 - 15 .0 mEq/L AO ADM SS GFR/1.73 sq M.predicted among blacks MDRD (S/P/Bld) [Vol rate/Area] 95 ml/min/1.73sqm Invalid Interpretation Code AO Chemistry S Comment on above: Interpretive Data: GFR Population mean for , Non- Americans Ages 20-29 = 116 mL/min/1.73 sq.m. Ages 30-39 = 107 mL/min/1.73 sq.m. Ages 40-49 = 99 mL/min/1.73 sq.m. Ages 50-59 = 93 mL/min/1.73 sq.m. Ages 60-69 = 85 mL/min/1.73 sq.m. Ages 70+ = 75 mL/min/1.73 sq.m. Chronic Kidney Disease: Less than 60 mL/min/1.73 square meters End Stage Renal Disease: Less than 15 mL/min/1.73 square meters GFR/1.73 sq M.predicted among non-blacks MDRD (S/P/Bld) [Vol rate/Area] 78 ml/min/1.73sqm Invalid Interpretation Code AO Chemistry S Comment on above: Interpretive Data: GFR Population mean for , Non- Americans Ages 20-29 = 116 mL/min/1.73 sq.m. Ages 30-39 = 107 mL/min/1.73 sq.m. Ages 40-49 = 99 mL/min/1.73 sq.m. Ages 50-59 = 93 mL/min/1.73 sq.m. Ages 60-69 = 85 mL/min/1.73 sq.m. Ages 70+ = 75 mL/min/1.73 sq.m. Chronic Kidney Disease: Less than 60 mL/min/1.73 square meters End Stage Renal Disease: Less than 15 mL/min/1.73 square meters Globulin 2.8 G/dL Invalid Interpretation Code AO ADM SS Glucose [Mass/Vol] 107 mg/dL Normal 80 - 115 mg/dL AO ADM SS Potassium [Moles/Vol] 4.5 mmol/L Normal 3.5 - 5.1 mmol/L AO ADM SS Protein [Mass/Vol] 6.3 G/dL Low 6.4 - 8.2 G/dL AO ADM SS Sodium [Moles/Vol] 140 mmol/L Normal 136 - 145 mmol/L AO ADM SS Urea nitrogen [Mass/Vol] 15 mg/dL Normal 7 - 18 mg/dL AO ADM SS Urea nitrogen/Creatinine [Mass ratio] 16 ratio Normal 7 - 27 ratio AO ADM SS LABORATORYOrdered By: Roberta Merlos on 05-04-2023 Cholesterol [Mass/Vol] 215 mg/dL High 0 - 2 00 mg/dL AO ADM SS Comment on above: Interpretive Data: C holesterol Reference Interval: Less than 200 Desirable 200-239 Borderline high risk 240 and above High risk Cholesterol in HDL [Mass/Vol] 58 mg/dL Normal 40 - 60 mg/dL AO ADM SS Cholesterol in LDL [Mass/Vol] 135 mg/dL High 0 - 130 mg/dL AO ADM SS Triglyceride [Mass/Vol] 108 mg/dL Normal 0 - 150 mg/dL AO ADM SS Comment on above: Interpretive Data: T riglyceride Reference Interval: Less than 150 Normal 150-199 Borderline high risk 200-499 High risk 500 or higher Very high risk LIPIDon 05-04-2023 Cholesterol [Mass/Vol] 215 mg/dL High 0-200 [facility] ([place]) Comment on above: Result Comment: Chol esterol Reference Interval: Less than 200 Desirable 200-239 Borderline high risk 240 and above High risk Performed By: #### G FR, VIDH, FT3, LIPID, FT4, CMP, PSA, ANEU, ADIFF, CBC, TSH #### [place] [id number] [place], [place] [address] Cholesterol in HDL [Mass/Vol] 58 mg/dL Normal 40-60 [facility] ([place] Comment on above: Performed By: #### G FR, VIDH, FT3, LIPID, FT4, CMP, PSA, ANEU, ADIFF, CBC, TSH #### [address] [address] Cholesterol in LDL [Mass/Vol] 135 mg/dL High 0-130 [facility] ([place] Comment on above: Performed By: #### G FR, VIDH, FT3, LIPID, FT4, CMP, PSA, ANEU, ADIFF, CBC, TSH #### [place] [id number] [place], [place] [address] Triglyceride [Mass/Vol] 108 mg/dL Normal 0-150 [facility] ([place]) Comment on above: Result Comment: Trig lyceride Reference Interval: Less than 150 Normal 150-199 Borderline high risk 200-499 High risk 500 or higher Very high risk Performed By: #### G FR, VIDH, FT3, LIPID, FT4, CMP, PSA, ANEU, ADIFF, CBC, TSH #### [address] [address] VIDHon 05-04-2023 Vit. D 25-Hydroxy 27.8 ng/mL Normal [facility] ([place]) Comment on above: Result Comment: Inte rpretive Values Based on Total 25(OH) Vitamin D: Deficient <20 ng/mL Insufficient 20 - <30 ng/mL Sufficient 30-100 ng/mL Performed By: #### G FR, VIDH, FT3, LIPID, FT4, CMP, PSA, ANEU, ADIFF, CBC, TSH #### [address] [address] XR ANKLE AND FOOT 6 VIEWS [facility] 02-25-2023 XR ANKLE AND FOOT 6 VIEWS RIGHT ORIGINAL EXAMINATION: 3 x-ray views of the right ankle and 3 x-ray views of the right foot 02/25/2023 7:15 pm COMPARISON: None. HISTORY: ORDERING SYSTEM PROVIDED HISTORY: Reason for Exam: pain FINDINGS: There is a acute mildly displaced small avulsion fracture at the dorsal aspect of the talar neck, which could also indicate underlying ligamentous injury. No other fracture or dislocation. No ankle joint effusion. No significant degenerative change. IMPRESSION: Small acute mildly displaced avulsion fracture of the dorsal talar neck, which could also indicate underlying ligamentous injury. I have personally reviewed the images of this examination and agree with the resident's findings and interpretation. Interpreted by: lAyx Dahl MD Preliminary Report By: Marycruz Andrews Electronically signed By Alyx Dahl MD Dictated Date: 02/25/2023 7:33:28 PM Prelim Date: 02/25/2023 7:43:57 PM Sign Date: 02/25/2023 8:31:43 PM Ordering Provider: SREEKANTH Dexter [facility] ([place]) .Auto Diffon 01-26-2023 Basophil, Absolute 0.0 10 3/mcL Normal 0.0-0.2 [facility] ([place]) Comment on above: Performed By: #### G FR, VIDH, FT3, LIPID, FT4, CMP, PSA, ANEU, ADIFF, CBC, TSH #### [address] [address] Basophils/100 WBC (Bld) 0.6 % Normal 0.0-2.5 [facility] ([place]) Comment on above: Performed By: #### G FR, VIDH, FT3, LIPID, FT4, CMP, PSA, ANEU, ADIFF, CBC, TSH #### [address] [address] Eosinophil, Absolute 0.3 10 3/mcL Normal 0.0-0.4 [facility] ([place]) Comment on above: Performed By: #### G FR, VIDH, FT3, LIPID, FT4, CMP, PSA, ANEU, ADIFF, CBC, TSH #### [address] [address] Eosinophils/100 WBC (Bld) 4.0 % Normal 0.0-7.0 [facility] ([place]) Comment on above: Performed By: #### G FR, VIDH, FT3, LIPID, FT4, CMP, PSA, ANEU, ADIFF, CBC, TSH #### [address] [address] Lymphocyte, Absolute 2.1 10 3/mcL Normal 0.8-3.9 [facility] ([place]) Comment on above: Performed By: #### G FR, VIDH, FT3, LIPID, FT4, CMP, PSA, ANEU, ADIFF, CBC, TSH #### [address] [address] Lymphocytes/100 WBC (Bld) 32.4 % Normal 10.0-50.0 [facility] ([place] Comment on above: Performed By: #### G FR, VIDH, FT3, LIPID, FT4, CMP, PSA, ANEU, ADIFF, CBC, TSH #### [address] [address] Monocyte, Absolute 0.5 10 3/mcL Normal 0.2-1.0 [facility] ([place]) Comment on above: Performed By: #### G FR, VIDH, FT3, LIPID, FT4, CMP, PSA, ANEU, ADIFF, CBC, TSH #### [address] [address] Monocytes/100 WBC (Bld) 8.1 % Normal 1.7-13.0 [facility] ([place] Comment on above: Performed By: #### G FR, VIDH, FT3, LIPID, FT4, CMP, PSA, ANEU, ADIFF, CBC, TSH #### [address] [address] Neutrophils/100 WBC (Bld) 54.9 % Normal 37.0-80.0 [facility] ([place] Comment on above: Performed By: #### G FR, VIDH, FT3, LIPID, FT4, CMP, PSA, ANEU, ADIFF, CBC, TSH #### [address] [address] .GFRon 01-26-2023 GFR 73 ml/min/1.73sqm Normal [facility] ([place]) Comment on above: Result Comment: GFR Population mean for , Non- Americans Ages 20-29 = 116 mL/min/1.73 sq.m. Ages 30-39 = 107 mL/min/1.73 sq.m. Ages 40-49 = 99 mL/min/1.73 sq.m. Ages 50-59 = 93 mL/min/1.73 sq.m. Ages 60-69 = 85 mL/min/1.73 sq.m. Ages 70+ = 75 mL/min/1.73 sq.m. Chronic Kidney Disease: Less than 60 mL/min/1.73 square meters End Stage Renal Disease: Less than 15 mL/min/1.73 square meters Performed By: #### G FR, VIDH, FT3, LIPID, FT4, CMP, PSA, ANEU, ADIFF, CBC, TSH #### [address] [address] GFR Non- 60 ml/min/1.73sqm Normal [facility] ([place]) Comment on above: Result Comment: GFR Population mean for , Non- Americans Ages 20-29 = 116 mL/min/1.73 sq.m. Ages 30-39 = 107 mL/min/1.73 sq.m. Ages 40-49 = 99 mL/min/1.73 sq.m. Ages 50-59 = 93 mL/min/1.73 sq.m. Ages 60-69 = 85 mL/min/1.73 sq.m. Ages 70+ = 75 mL/min/1.73 sq.m. Chronic Kidney Disease: Less than 60 mL/min/1.73 square meters End Stage Renal Disease: Less than 15 mL/min/1.73 square meters Performed By: #### G FR, VIDH, FT3, LIPID, FT4, CMP, PSA, ANEU, ADIFF, CBC, TSH #### [address] [address] .NEUABSon 01-26-2023 Neutrophil, Absolute 3.6 10 3/mcL Normal 2.9-6.2 [facility] ([place] Comment on above: Performed By: #### G FR, VIDH, FT3, LIPID, FT4, CMP, PSA, ANEU, ADIFF, CBC, TSH #### [address] [address] CBCon 01-26-2023 Erythrocyte distribution width (RBC) [Ratio] 13.4 % Normal 11.5-14.5 [facility] ([place]) Comment on above: Performed By: #### G FR, VIDH, FT3, LIPID, FT4, CMP, PSA, ANEU, ADIFF, CBC, TSH #### [address] [address] Hematocrit (Bld) [Volume fraction] 42.2 % Normal 42.0-52.0 [facility] ([place] Comment on above: Performed By: #### G FR, VIDH, FT3, LIPID, FT4, CMP, PSA, ANEU, ADIFF, CBC, TSH #### [place] [address] Hgb 14.3 G/dL Normal 14.0-18.0 [facility] ([place] Comment on above: Performed By: #### G FR, VIDH, FT3, LIPID, FT4, CMP, PSA, ANEU, ADIFF, CBC, TSH #### [place] [address] MCH (RBC) [Entitic mass] 29.7 pg Normal 27.0-31.2 [facility] ([place] Comment on above: Performed By: #### G FR, VIDH, FT3, LIPID, FT4, CMP, PSA, ANEU, ADIFF, CBC, TSH #### [place] [address] MCHC 34.0 G/dL Normal 31.8-35.4 [facility] ([place] Comment on above: Performed By: #### G FR, VIDH, FT3, LIPID, FT4, CMP, PSA, ANEU, ADIFF, CBC, TSH #### [address] [address] MCV (RBC) [Entitic vol] 87.5 fL Normal 80.0-94.0 A [facility] ([place]) Comment on above: Performed By: #### G FR, VIDH, FT3, LIPID, FT4, CMP, PSA, ANEU, ADIFF, CBC, TSH #### [address] [address] Platelet 200 10 3/mcL Normal 130-400 [facility] ([place]) Comment on above: Performed By: #### G FR, VIDH, FT3, LIPID, FT4, CMP, PSA, ANEU, ADIFF, CBC, TSH #### [address] [address] Platelet mean volume (Bld) [Entitic vol] 7.7 fL Normal 7.4-10.4 [facility] ([place]) Comment on above: Performed By: #### G FR, VIDH, FT3, LIPID, FT4, CMP, PSA, ANEU, ADIFF, CBC, TSH #### [address] [address] RBC 4.82 10 6/mcL Normal 4.04-6.13 [facility] ([place] Comment on above: Performed By: #### G FR, VIDH, FT3, LIPID, FT4, CMP, PSA, ANEU, ADIFF, CBC, TSH #### [address] [address] WBC 6.5 10 3/mcL Normal 4.6-10.8 [facility] ([place] Comment on above: Performed By: #### G FR, VIDH, FT3, LIPID, FT4, CMP, PSA, ANEU, ADIFF, CBC, TSH #### [address] [address] CMPon 01-26-2023 Albumin Level 3.9 G/dL Normal 3.4-4.8 [facility] ([place] Comment on above: Performed By: #### G FR, VIDH, FT3, LIPID, FT4, CMP, PSA, ANEU, ADIFF, CBC, TSH #### [address] [address] Albumin/Globulin [Mass ratio] 1.4 {ratio} Normal 1.1-2.5 [facility] ([place]) Comment on above: Performed By: #### G FR, VIDH, FT3, LIPID, FT4, CMP, PSA, ANEU, ADIFF, CBC, TSH #### [address] [address] ALP [Catalytic activity/Vol] 82 U/L Normal 40-135 [facility] ([place]) Comment on above: Performed By: #### G FR, VIDH, FT3, LIPID, FT4, CMP, PSA, ANEU, ADIFF, CBC, TSH #### [address] [address] ALT [Catalytic activity/Vol] 24 U/L Normal 16-63 [facility] ([place]) Comment on above: Performed By: #### G FR, VIDH, FT3, LIPID, FT4, CMP, PSA, ANEU, ADIFF, CBC, TSH #### [address] [address] AST [Catalytic activity/Vol] 17 U/L Normal 10-40 [facility] ([place]) Comment on above: Performed By: #### G FR, VIDH, FT3, LIPID, FT4, CMP, PSA, ANEU, ADIFF, CBC, TSH #### [address] [address] Bili Total 0.6 mg/dL Normal 0.2-1.0 [facility] ([place]) Comment on above: Result Comment: Use of this assay is not recommended for patients undergoing treatment with eltrombopag due to the potential for falsely elevated results. Performed By: #### G FR, VIDH, FT3, LIPID, FT4, CMP, PSA, ANEU, ADIFF, CBC, TSH #### [address] [address] BUN/Creatinine Ratio 12 ratio Normal 7-27 [facility] ([place]) Comment on above: Performed By: #### G FR, VIDH, FT3, LIPID, FT4, CMP, PSA, ANEU, ADIFF, CBC, TSH #### [address] [address] Calcium [Mass/Vol] 8.9 mg/dL Normal 8.4-10.2 [facility] ([place]) Comment on above: Performed By: #### G FR, VIDH, FT3, LIPID, FT4, CMP, PSA, ANEU, ADIFF, CBC, TSH #### [address] [address] Chloride [Moles/Vol] 106 mmol/L Normal 98-107 [facility] ([place] Comment on above: Performed By: #### G FR, VIDH, FT3, LIPID, FT4, CMP, PSA, ANEU, ADIFF, CBC, TSH #### [address] [address] CO2 [Moles/Vol] 30 mmol/L Normal 23-31 [facility] ([place]) Comment on above: Performed By: #### G FR, VIDH, FT3, LIPID, FT4, CMP, PSA, ANEU, ADIFF, CBC, TSH #### [address] [address] Creatinine [Mass/Vol] 1.21 mg/dL Normal 0.70-1.30 [facility] ([place]) Comment on above: Performed By: #### G FR, VIDH, FT3, LIPID, FT4, CMP, PSA, ANEU, ADIFF, CBC, TSH #### [address] [address] Electrolyte Balance 3.0 mEq/L Low 4.0-15.0 [facility] ([place]) Comment on above: Performed By: #### G FR, VIDH, FT3, LIPID, FT4, CMP, PSA, ANEU, ADIFF, CBC, TSH #### [address] [address] Globulin 2.7 G/dL Normal [facility] ([place]) Comment on above: Performed By: #### G FR, VIDH, FT3, LIPID, FT4, CMP, PSA, ANEU, ADIFF, CBC, TSH #### [address] [address] Glucose [Mass/Vol] 108 mg/dL Normal 80-115 [facility] ([place] Comment on above: Performed By: #### G FR, VIDH, FT3, LIPID, FT4, CMP, PSA, ANEU, ADIFF, CBC, TSH #### [address] [address] Potassium [Moles/Vol] 4.0 mmol/L Normal 3.5-5.1 [facility] ([place]) Comment on above: Performed By: #### G FR, VIDH, FT3, LIPID, FT4, CMP, PSA, ANEU, ADIFF, CBC, TSH #### [address] [address] Sodium [Moles/Vol] 139 mmol/L Normal 136-145 [facility] ([place] Comment on above: Performed By: #### G FR, VIDH, FT3, LIPID, FT4, CMP, PSA, ANEU, ADIFF, CBC, TSH #### [address] [address] Total Protein 6.6 G/dL Normal 6.4-8.2 [facility] ([place]) Comment on above: Performed By: #### G FR, VIDH, FT3, LIPID, FT4, CMP, PSA, ANEU, ADIFF, CBC, TSH #### [address] [address] Urea nitrogen [Mass/Vol] 15 mg/dL Normal 7-18 [facility] ([place]) Comment on above: Performed By: #### G FR, VIDH, FT3, LIPID, FT4, CMP, PSA, ANEU, ADIFF, CBC, TSH #### [address] [address] FT3on 01-26-2023 Free T3 [Mass/Vol] 3.41 pg/mL Normal 2.30-4.00 [facility] ([place] Comment on above: Performed By: #### G FR, VIDH, FT3, LIPID, FT4, CMP, PSA, ANEU, ADIFF, CBC, TSH #### [address] [address] FT4on 01-26-2023 Free T4 [Mass/Vol] 0.99 ng/dL Normal 0.76-1.46 [facility] ([place] Comment on above: Performed By: #### G FR, VIDH, FT3, LIPID, FT4, CMP, PSA, ANEU, ADIFF, CBC, TSH #### [address] [address] LABORATORYOrdered By: SYSTEM SYSTEM on 01-26-2023 25-hydroxyvitamin D3 [Mass/Vol] 30.3 ng/mL Invalid Interpretation Code AO ADM SS Comment on above: Interpretive Data: I nterpretive Values Based on Total 25(OH) Vitamin D: Deficient <20 ng/mL Insufficient 20 - <30 ng/mL Sufficient 30-100 ng/mL Albumin BCP dye [Mass/Vol] 3.9 G/dL Invalid Interpretation Code 3.4 - 4.8 G/dL AO ADM SS Albumin/Globulin [Mass ratio] 1.4 {ratio} Invalid Interpretation Code 1.1 - 2.5 ratio AO ADM SS ALP [Catalytic activity/Vol] 82 U/L Invalid Interpretation Code 40 - 135 U/L AO ADM SS ALT With P-5'-P [Catalytic activity/Vol] 24 U/L Invalid Interpretation Code 16 - 63 U/L AO ADM SS AST With P-5'-P [Catalytic activity/Vol] 17 U/L Invalid Interpretation Code 10 - 40 U/L AO ADM SS Basophil, Absolute 0.0 103/mcL Invalid Interpretation Code 0.0 - 0.2 10^3/mcL AO Workflow SS Basophils/100 WBC (Bld) 0.6 % Invalid Interpretation Code 0.0 - 2.5 % AO Workflow SS Bilirubin [Mass/Vol] 0.6 mg/dL Invalid Interpretation Code 0.2 - 1.0 mg/dL AO ADM SS Comment on above: Interpretive Data: U se of this assay is not recommended for patients undergoing treatment with eltrombopag due to the potential for falsely elevated results. Calcium [Mass/Vol] 8.9 mg/dL Invalid Interpretation Code 8.4 - 10.2 mg/dL AO ADM SS Chloride [Moles/Vol] 106 mmol/L Invalid Interpretation Code 98 - 107 mmol/L AO ADM SS CO2 [Moles/Vol] 30 mmol/L Invalid Interpretation Code 23 - 31 mmol/L AO ADM SS Creatinine [Mass/Vol] 1.21 mg/dL Invalid Interpretation Code 0.70 - 1.30 mg/dL AO ADM SS Electrolyte Balance 3.0 mEq/L Invalid Interpretation Code 4.0 - 15.0 mEq/L AO ADM SS Eosinophil, Absolute 0.3 103/mcL Invalid Interpretation Code 0.0 - 0.4 10^3/mcL AO Workflow SS Eosinophils/100 WBC (Bld) 4.0 % Invalid Interpretation Code 0.0 - 7.0 % AO Workflow SS Erythrocyte distribution width (RBC) [Ratio] 13.4 % Invalid Interpretation Code 11.5 - 14.5 % AO Workflow SS Free T3 [Mass/Vol] 3.41 pg/mL Invalid Interpretation Code 2.30 - 4.00 pg/mL AO ADM SS Free T4 [Mass/Vol] 0.99 ng/dL Invalid Interpretation Code 0.76 - 1.46 ng/dL AO ADM SS GFR/1.73 sq M.predicted among blacks MDRD (S/P/Bld) [Vol rate/Area] 73 ml/min/1.73sqm Invalid Interpretation Code AO Chemistry S Comment on above: Interpretive Data: GFR Population mean for , Non- Americans Ages 20-29 = 116 mL/min/1.73 sq.m. Ages 30-39 = 107 mL/min/1.73 sq.m. Ages 40-49 = 99 mL/min/1.73 sq.m. Ages 50-59 = 93 mL/min/1.73 sq.m. Ages 60-69 = 85 mL/min/1.73 sq.m. Ages 70+ = 75 mL/min/1.73 sq.m. Chronic Kidney Disease: Less than 60 mL/min/1.73 square meters End Stage Renal Disease: Less than 15 mL/min/1.73 square meters GFR/1.73 sq M.predicted among non-blacks MDRD (S/P/Bld) [Vol rate/Area] 60 ml/min/1.73sqm Invalid Interpretation Code AO Chemistry S Comment on above: Interpretive Data: GFR Population mean for , Non- Americans Ages 20-29 = 116 mL/min/1.73 sq.m. Ages 30-39 = 107 mL/min/1.73 sq.m. Ages 40-49 = 99 mL/min/1.73 sq.m. Ages 50-59 = 93 mL/min/1.73 sq.m. Ages 60-69 = 85 mL/min/1.73 sq.m. Ages 70+ = 75 mL/min/1.73 sq.m. Chronic Kidney Disease: Less than 60 mL/min/1.73 square meters End Stage Renal Disease: Less than 15 mL/min/1.73 square meters Globulin 2.7 G/dL Invalid Interpretation Code AO ADM SS Glucose [Mass/Vol] 108 mg/dL Invalid Interpretation Code 80 - 115 mg/dL AO ADM SS Hematocrit (Bld) [Volume fraction] 42.2 % Invalid Interpretation Code 42.0 - 52.0 % AO Workflow SS Hemoglobin (Bld) [Mass/Vol] 14.3 G/dL Invalid Interpretation Code 14.0 - 18.0 G/dL AO Workflow SS Lymphocyte, Absolute 2.1 103/mcL Invalid Interpretation Code 0.8 - 3.9 10^3/mcL AO Workflow SS Lymphocytes/100 WBC (Bld) 32.4 % Invalid Interpretation Code 10.0 - 50.0 % AO Workflow SS MCH (RBC) [Entitic mass] 29.7 pg Invalid Interpretation Code 27.0 - 31.2 pg AO Workflow SS MCHC 34.0 G/dL Invalid Interpretation Code 31.8 - 35.4 G/dL AO Workflow SS MCV (RBC) [Entitic vol] 87.5 fL Invalid Interpretation Code 80.0 - 94.0 fL AO Workflow SS Monocyte, Absolute 0.5 103/mcL Invalid Interpretation Code 0.2 - 1.0 10^3/mcL AO Workflow SS Monocytes/100 WBC (Bld) 8.1 % Invalid Interpretation Code 1.7 - 13.0 % AO Workflow SS Neutrophil, Absolute 3.6 103/mcL Invalid Interpretation Code 2.9 - 6.2 10^3/mcL AO Workflow SS Neutrophils/100 WBC (Bld) 54.9 % Invalid Interpretation Code 37.0 - 80.0 % AO Workflow SS Platelet mean volume (Bld) [Entitic vol] 7.7 fL Invalid Interpretation Code 7.4 - 10.4 fL AO Workflow SS Platelets (Bld) [#/Vol] 200 103/mcL Invalid Interpretation Code 130 - 400 10^3/mcL AO Workflow SS Potassium [Moles/Vol] 4.0 mmol/L Invalid Interpretation Code 3.5 - 5.1 mmol/L AO ADM SS Prostate specific Ag [Mass/Vol] ng/mL Invalid Interpretation Code 0.00 - 4.00 ng/mL AO ADM SS Protein [Mass/Vol] 6.6 G/dL Invalid Interpretation Code 6.4 - 8.2 G/dL AO ADM SS RBC (Bld) [#/Vol] 4.82 106/mcL Invalid Interpretation Code 4.04 - 6.13 10^6/mcL AO Workflow SS Sodium [Moles/Vol] 139 mmol/L Invalid Interpretation Code 136 - 145 mmol/L AO ADM SS TSH Qn 3.60 m[IU]/L Invalid Interpretation Code 0.36 - 3.74 mcIU/mL AO ADM SS Urea nitrogen [Mass/Vol] 15 mg/dL Invalid Interpretation Code 7 - 18 mg/dL AO ADM SS Urea nitrogen/Creatinine [Mass ratio] 12 ratio Invalid Interpretation Code 7 - 27 ratio AO ADM SS WBC (Bld) [#/Vol] 6.5 103/mcL Invalid Interpretation Code 4.6 - 10.8 10^3/mcL AO Workflow SS LABORATORYOrdered By: Luis De Souza on 01-26-2023 Cholesterol [Mass/Vol] 200 mg/dL Invalid Interpretation Code 0 - 200 mg/dL AO ADM SS Comment on above: Interpretive Data: C holesterol Reference Interval: Less than 200 Desirable 200-239 Borderline high risk 240 and above High risk Cholesterol in HDL [Mass/Vol] 60 mg/dL Invalid Interpretation Code 40 - 60 mg/dL AO ADM SS Cholesterol in LDL [Mass/Vol] 115 mg/dL Invalid Interpretation Code 0 - 130 mg/dL AO ADM SS Triglyceride [Mass/Vol] 126 mg/dL Invalid Interpretation Code 0 - 150 mg/dL AO ADM SS Comment on above: Interpretive Data: T riglyceride Reference Interval: Less than 150 Normal 150-199 Borderline high risk 200-499 High risk 500 or higher Very high risk LIPIDon 01-26-2023 Cholesterol [Mass/Vol] 200 mg/dL Normal 0-200 [facility] ([place]) Comment on above: Result Comment: Chol esterol Reference Interval: Less than 200 Desirable 200-239 Borderline high risk 240 and above High risk Performed By: #### G FR, VIDH, FT3, LIPID, FT4, CMP, PSA, ANEU, ADIFF, CBC, TSH #### [facility] [address], [place] [address] Cholesterol in HDL [Mass/Vol] 60 mg/dL Normal 40-60 [facility] ([place]) Comment on above: Performed By: #### G FR, VIDH, FT3, LIPID, FT4, CMP, PSA, ANEU, ADIFF, CBC, TSH #### [address] [address] Cholesterol in LDL [Mass/Vol] 115 mg/dL Normal 0-130 [facility] ([place]) Comment on above: Performed By: #### G FR, VIDH, FT3, LIPID, FT4, CMP, PSA, ANEU, ADIFF, CBC, TSH #### [address] [address] Triglyceride [Mass/Vol] 126 mg/dL Normal 0-150 [facility] ([place]) Comment on above: Result Comment: Trig lyceride Reference Interval: Less than 150 Normal 150-199 Borderline high risk 200-499 High risk 500 or higher Very high risk Performed By: #### G FR, VIDH, FT3, LIPID, FT4, CMP, PSA, ANEU, ADIFF, CBC, TSH #### [address] [address] PSAon 01-26-2023 Prostate Specific Antigen <0.05 Normal 0.00-4.00 [facility] ([place]) Comment on above: Performed By: #### G FR, VIDH, FT3, LIPID, FT4, CMP, PSA, ANEU, ADIFF, CBC, TSH #### [address] [address] TSHon 01-26-2023 TSH Qn 3.60 m[IU]/L Normal 0.36-3.74 [facility] ([place]) Comment on above: Performed By: #### G FR, VIDH, FT3, LIPID, FT4, CMP, PSA, ANEU, ADIFF, CBC, TSH #### [address] [address] VIDHon 01-26-2023 Vit. D 25-Hydroxy 30.3 ng/mL Normal [facility] ([place]) Comment on above: Result Comment: Inte rpretive Values Based on Total 25(OH) Vitamin D: Deficient <20 ng/mL Insufficient 20 - <30 ng/mL Sufficient 30-100 ng/mL Performed By: #### G FR, VIDH, FT3, LIPID, FT4, CMP, PSA, ANEU, ADIFF, CBC, TSH #### [facility] [address], [place] [address] LABORATORYOrdered By: SYSTEM SYSTEM on 10-30-2022 Albumin BCP dye [Mass/Vol] 3.6 G/dL Invalid Interpretation Code 3.4 - 4.8 G/dL AO ADM SS Albumin/Globulin [Mass ratio] 1.4 {ratio} Invalid Interpretation Code 1.1 - 2.5 ratio AO ADM SS ALP [Catalytic activity/Vol] 90 U/L Invalid Interpretation Code 40 - 135 U/L AO ADM SS ALT With P-5'-P [Catalytic activity/Vol] 22 U/L Invalid Interpretation Code 16 - 63 U/L AO ADM SS AST With P-5'-P [Catalytic activity/Vol] 21 U/L Invalid Interpretation Code 10 - 40 U/L AO ADM SS Bilirubin [Mass/Vol] 0.5 mg/dL Invalid Interpretation Code 0.2 - 1.0 mg/dL AO ADM SS Comment on above: Interpretive Data: U se of this assay is not recommended for patients undergoing treatment with eltrombopag due to the potential for falsely elevated results. Calcium [Mass/Vol] 8.6 mg/dL Invalid Interpretation Code 8.4 - 10.2 mg/dL AO ADM SS Chloride [Moles/Vol] 105 mmol/L Invalid Interpretation Code 98 - 107 mmol/L AO ADM SS CO2 [Moles/Vol] 31 mmol/L Invalid Interpretation Code 23 - 31 mmol/L AO ADM SS Creatinine [Mass/Vol] 1.15 mg/dL Invalid Interpretation Code 0.70 - 1.30 mg/dL AO ADM SS Electrolyte Balance 5.0 mEq/L Invalid Interpretation Code 4.0 - 15.0 mEq/L AO ADM SS GFR/1.73 sq M.predicted among blacks MDRD (S/P/Bld) [Vol rate/Area] 77 ml/min/1.73sqm Invalid Interpretation Code AO Chemistry S Comment on above: Interpretive Data: GFR Population mean for , Non- Americans Ages 20-29 = 116 mL/min/1.73 sq.m. Ages 30-39 = 107 mL/min/1.73 sq.m. Ages 40-49 = 99 mL/min/1.73 sq.m. Ages 50-59 = 93 mL/min/1.73 sq.m. Ages 60-69 = 85 mL/min/1.73 sq.m. Ages 70+ = 75 mL/min/1.73 sq.m. Chronic Kidney Disease: Less than 60 mL/min/1.73 square meters End Stage Renal Disease: Less than 15 mL/min/1.73 square meters GFR/1.73 sq M.predicted among non-blacks MDRD (S/P/Bld) [Vol rate/Area] 64 ml/min/1.73sqm Invalid Interpretation Code AO Chemistry S Comment on above: Interpretive Data: GFR Population mean for , Non- Americans Ages 20-29 = 116 mL/min/1.73 sq.m. Ages 30-39 = 107 mL/min/1.73 sq.m. Ages 40-49 = 99 mL/min/1.73 sq.m. Ages 50-59 = 93 mL/min/1.73 sq.m. Ages 60-69 = 85 mL/min/1.73 sq.m. Ages 70+ = 75 mL/min/1.73 sq.m. Chronic Kidney Disease: Less than 60 mL/min/1.73 square meters End Stage Renal Disease: Less than 15 mL/min/1.73 square meters Globulin 2.6 G/dL Invalid Interpretation Code AO ADM SS Glucose [Mass/Vol] 99 mg/dL Invalid Interpretation Code 80 - 115 mg/dL AO ADM SS Potassium [Moles/Vol] 4.3 mmol/L Invalid Interpretation Code 3.5 - 5.1 mmol/L AO ADM SS Protein [Mass/Vol] 6.2 G/dL Invalid Interpretation Code 6.4 - 8.2 G/dL AO ADM SS Sodium [Moles/Vol] 141 mmol/L Invalid Interpretation Code 136 - 145 mmol/L AO ADM SS Urea nitrogen [Mass/Vol] 13 mg/dL Invalid Interpretation Code 7 - 18 mg/dL AO ADM SS Urea nitrogen/Creatinine [Mass ratio] 11 ratio Invalid Interpretation Code 7 - 27 ratio AO ADM SS LABORATORYOrdered By: Carolee Arredondo on 10-30-2022 Cholesterol [Mass/Vol] 179 mg/dL Invalid Interpretation Code 0 - 200 mg/dL AO ADM SS Comment on above: Interpretive Data: C holesterol Reference Interval: Less than 200 Desirable 200-239 Borderline high risk 240 and above High risk Cholesterol in HDL [Mass/Vol] 61 mg/dL Invalid Interpretation Code 40 - 60 mg/dL AO ADM SS Cholesterol in LDL [Mass/Vol] 102 mg/dL Invalid Interpretation Code 0 - 130 mg/dL AO ADM SS Triglyceride [Mass/Vol] 81 mg/dL Invalid Interpretation Code 0 - 150 mg/dL AO ADM SS Comment on above: Interpretive Data: T riglyceride Reference Interval: Less than 150 Normal 150-199 Borderline high risk 200-499 High risk 500 or higher Very high risk LABORATORYOrdered By: SYSTEM SYSTEM on 06-19-2022 Albumin BCP dye [Mass/Vol] 3.8 G/dL Invalid Interpretation Code 3.4 - 4.8 G/dL AO ADM SS Albumin/Globulin [Mass ratio] 1.6 {ratio} Invalid Interpretation Code 1.1 - 2.5 ratio AO ADM SS ALP [Catalytic activity/Vol] 103 U/L Invalid Interpretation Code 40 - 135 U/L AO ADM SS ALT With P-5'-P [Catalytic activity/Vol] 34 U/L Invalid Interpretation Code 16 - 63 U/L AO ADM SS AST With P-5'-P [Catalytic activity/Vol] 28 U/L Invalid Interpretation Code 10 - 40 U/L AO ADM SS Bilirubin [Mass/Vol] 0.6 mg/dL Invalid Interpretation Code 0.2 - 1.0 mg/dL AO ADM SS Calcium [Mass/Vol] 8.4 mg/dL Invalid Interpretation Code 8.4 - 10.2 mg/dL AO ADM SS Chloride [Moles/Vol] 107 mmol/L Invalid Interpretation Code 98 - 107 mmol/L AO ADM SS CO2 [Moles/Vol] 31 mmol/L Invalid Interpretation Code 23 - 31 mmol/L AO ADM SS Creatinine [Mass/Vol] 1.07 mg/dL Invalid Interpretation Code 0.70 - 1.30 mg/dL AO ADM SS Electrolyte Balance 7.0 mEq/L Invalid Interpretation Code 4.0 - 15.0 mEq/L AO ADM SS GFR 84 ml/min/1.73sqm Invalid Interpretation Code AO Chemistry S GFR Non- 69 ml/min/1.73sqm Invalid Interpretation Code AO Chemistry S Globulin 2.4 G/dL Invalid Interpretation Code AO ADM SS Glucose [Mass/Vol] 101 mg/dL Invalid Interpretation Code 80 - 115 mg/dL AO ADM SS Potassium [Moles/Vol] 4.2 mmol/L Invalid Interpretation Code 3.5 - 5.1 mmol/L AO ADM SS Protein [Mass/Vol] 6.2 G/dL Invalid Interpretation Code 6.4 - 8.2 G/dL AO ADM SS Sodium [Moles/Vol] 145 mmol/L Invalid Interpretation Code 136 - 145 mmol/L AO ADM SS Urea nitrogen [Mass/Vol] 15 mg/dL Invalid Interpretation Code 7 - 18 mg/dL AO ADM SS Urea nitrogen/Creatinine [Mass ratio] 14 ratio Invalid Interpretation Code 7 - 27 ratio AO ADM SS LABORATORYOrdered By: Nereyda Butterfield on 06-19-2022 Basophil, Absolute 0.0 103/mcL Invalid Interpretation Code 0.0 - 0.2 10^3/mcL AO Workflow SS Basophils/100 WBC (Bld) 0.7 % Invalid Interpretation Code 0.0 - 2.5 % AO Workflow SS Eosinophil, Absolute 0.2 103/mcL Invalid Interpretation Code 0.0 - 0.4 10^3/mcL AO Workflow SS Eosinophils/100 WBC (Bld) 3.6 % Invalid Interpretation Code 0.0 - 7.0 % AO Workflow SS Erythrocyte distribution width (RBC) [Ratio] 13.5 % Invalid Interpretation Code 11.5 - 14.5 % AO Workflow SS Hematocrit (Bld) [Volume fraction] 43.3 % Invalid Interpretation Code 42.0 - 52.0 % AO Workflow SS Hemoglobin (Bld) [Mass/Vol] 14.6 G/dL Invalid Interpretation Code 14.0 - 18.0 G/dL AO Workflow SS Lymphocyte, Absolute 2.1 103/mcL Invalid Interpretation Code 0.8 - 3.9 10^3/mcL AO Workflow SS Lymphocytes/100 WBC (Bld) 34.2 % Invalid Interpretation Code 10.0 - 50.0 % AO Workflow SS MCH (RBC) [Entitic mass] 29.2 pg Invalid Interpretation Code 27.0 - 31.2 pg AO Workflow SS MCHC 33.8 G/dL Invalid Interpretation Code 31.8 - 35.4 G/dL AO Workflow SS MCV (RBC) [Entitic vol] 86.3 fL Invalid Interpretation Code 80.0 - 94.0 fL AO Workflow SS Monocyte, Absolute 0.5 103/mcL Invalid Interpretation Code 0.2 - 1.0 10^3/mcL AO Workflow SS Monocytes/100 WBC (Bld) 8.9 % Invalid Interpretation Code 1.7 - 13.0 % AO Workflow SS Neutrophil, Absolute 3.2 103/mcL Invalid Interpretation Code 2.9 - 6.2 10^3/mcL AO Workflow SS Neutrophils/100 WBC (Bld) 52.6 % Invalid Interpretation Code 37.0 - 80.0 % AO Workflow SS Platelet mean volume (Bld) [Entitic vol] 7.5 fL Invalid Interpretation Code 7.4 - 10.4 fL AO Workflow SS Platelets (Bld) [#/Vol] 204 103/mcL Invalid Interpretation Code 130 - 400 10^3/mcL AO Workflow SS RBC (Bld) [#/Vol] 5.02 106/mcL Invalid Interpretation Code 4.04 - 6.13 10^6/mcL AO Workflow SS WBC (Bld) [#/Vol] 6.1 103/mcL Invalid Interpretation Code 4.6 - 10.8 10^3/mcL AO Workflow SS LABORATORYOrdered By: Carolee Arredondo on 06-19-2022 Cholesterol [Mass/Vol] 184 mg/dL Invalid Interpretation Code 0 - 200 mg/dL AO ADM SS Cholesterol in HDL [Mass/Vol] 54 mg/dL Invalid Interpretation Code 40 - 60 mg/dL AO ADM SS Cholesterol in LDL [Mass/Vol] 110 mg/dL Invalid Interpretation Code 0 - 130 mg/dL AO ADM SS Triglyceride [Mass/Vol] 99 mg/dL Invalid Interpretation Code 0 - 150 mg/dL AO ADM SS CNOVon 05-14-2022 CNOV Office Visit ([facility] ) -- ALYX MOTLEY ([id number]) 1955 M Date Time Provider Department 05/14/22 3:00 PM [facility] your visit today, we recorded the following information about you: Pulse Blood pressure Weight Height 69/minute 130/88 75.3 kg 1.727 m Adam Vann DO 2022 5:06 AM Signed Referring Provider: Adam Vann DO Date: May 14, 2022 Chief Complaint: Established Patient Follow-Up (Palpitations) HISTORY OF PRESENT ILLNESS: Alyx Motley is a 66 year old male who presents for Established Patient Follow-Up (Palpitations). ALLERGIES Allergen Reactions Bee Sting PAST MEDICAL HISTORY: PAST MEDICAL HISTORY Diagnosis Date Bicuspid aortic valve Chronic back pain COVID-19 02/2020 Diverticulosis GERD (gastroesophageal reflux disease) H/O echocardiogram 09/06/2021 Ef 50-55%, bicuspid aortic valve , aortic root borderline dilated ( 38 mm) ascending aorta mildly dilated (37 mm), mvp, posterior leaflet History of prostate cancer 2008 Hypothyroidism IBS (irritable bowel syndrome) Mixed hyperlipidemia Murmur MVP (mitral valve prolapse) ROBIN (obstructive sleep apnea) PAST SURGICAL HISTORY Procedure Laterality Date COLONOSCOPY 2018 polypectomy COLONOSCOPY FLX DX W/COLLJ SPEC WHEN PFRMD 02/22/2015 Colonoscopy EGD ([facility]) 10/22/2017 ESOPHAGOGASTRODUODENOSCOPY TRANSORAL DIAGNOSTIC 02/22/2015 EGD PROSTATE BIOPSY PROSTATECTOMY;RADICAL RETROPUBIC 03/26/2009 TONSILLECTOMY PRIMARY/SECONDARY Tonsillectomy FAMILY HISTORY Problem Relation Age of Onset Prostate Cancer Maternal Grandfather Colon Cancer Mother Ischemic Heart Disease Maternal Grandmother SOCIAL HISTORY: Tobacco Use: Never Alcohol Use: No Drug Use: No 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 propranolol (INDERAL) 10 mg tablet Take 10 mg by mouth once daily. loratadine (CLARITIN) 10 mg tablet Take 1 tablet by mouth as needed. pantoprazole DR (PROTONIX) 40 mg tablet Take 1 tablet by mouth once daily. No current facility-administered medications for this visit. I have personally reviewed the patients past medical history including social, family, surgical, diagnostics, and medications. REVIEW OF SYSTEMS: Review of Systems Constitutional: Negative for chills and fatigue. Respiratory: Negative for chest tightness and shortness of breath. Cardiovascular: Positive for palpitations. Negative for chest pain and leg swelling. Neurological: Negative for dizziness, syncope, weakness and light-headedness. Hematological: Does not bruise/bleed easily. Psychiatric/Behavioral: Negative for confusion and hallucinations. Vitals: BP 130/88 (BP Site: Left Arm, BP Position: Sitting) Pulse 69 Ht 172.7 cm (5' 8) Wt 75.3 kg (166 lb) BMI 25.24 kg/m? PHYSICAL EXAMINATION: BP 130/88 (BP Site: Left Arm, BP Position: Sitting) Pulse 69 Ht 172.7 cm (5' 8) Wt 75.3 kg (166 lb) BMI 25.24 kg/m? Last 3 Encounter BP Readings: Date: BP: 10/23/2021 110/84 12/29/2018 157/90 03/12/2015 118/76 Last 3 Encounter Pulse Readings: Date: Pulse: 10/23/2021 74 12/29/2018 93 03/12/2015 87 Last 3 Encounter Wt Readings: Date: Wt: 10/23/2021 74.8 kg (165 lb) 12/29/2018 74.7 kg (164 lb 11.2 oz) 03/12/2015 75.7 kg (166 lb 12.8 oz) Physical Exam Vitals reviewed. Constitutional: General: He is not in acute distress. Cardiovascular: Rate and Rhythm: Normal rate and regular rhythm. Pulses: Carotid pulses are 2+ on the right side and 2+ on the left side. Radial pulses are 2+ on the right side and 2+ on the left side. Femoral pulses are 2+ on the right side and 2+ on the left side. Popliteal pulses are 2+ on the right side and 2+ on the left side. Dorsalis pedis pulses are 2+ on the right side and 2+ on the left side. Posterior tibial pulses are 2+ on the right side and 2+ on the left side. Heart sounds: Murmur heard. Systolic murmur is present with a grade of 2/6. Comments: PMI not displaced. 2nd heart sound loud. Pulmonary: Effort: Pulmonary effort is normal. Breath sounds: Normal breath sounds. Abdominal: General: Abdomen is flat. Bowel sounds are normal. Palpations: Abdomen is soft. Tenderness: There is no abdominal tenderness. Musculoskeletal: Right lower leg: No edema. Left lower leg: No edema. Skin: General: Skin is warm. Findings: No rash or wound. Neurological: Mental Status: He is alert and oriented to person, place, and time. Coordination: Coordination is intact. LABS: Glucose (mg/dL) Date Value 03/27/2009 106 Potassium (mmol/L) Date Value 03/27/2009 3.7 Sodium (mmol/L) Date Value 1 (more content not included)... Normal [facility] ECG COMPLETEon 05-14-2022 ECG COMPLETE Ventricular Rate : 6 9 BPM Atrial Rate : 69 BPM P-R Interval : 170 ms QRS Duration : 90 ms Q-T Interval : 408 ms QTC Calculation(Bazett) : 437 ms Calculated P Bayside : 65 degrees Calculated R Bayside : 71 degrees Calculated T Bayside : 64 degrees NORMAL SINUS RHYTHM NORMAL ECG WHEN COMPARED WITH ECG OF 23-OCT-2021 14:01, NO SIGNIFICANT CHANGE WAS FOUND Confirmed by ADAM VANN DO ([id number]) on 06/01/2022 8:34:18 PM NAME : LAYX MOTLEY PID : [id number] : 1955 Gender : Male Race : ORD : [id number] Procedure Date : May 14 2022 15:09:20 Edit Date : Jun 01 2022 20:34:25 Diagnosis: NORMAL SINUS RHYTHM NORMAL ECG WHEN COMPARED WITH ECG OF 23-OCT-2021 14:, NO SIGNIFICANT CHANGE WAS FOUND Confirmed by ADAM VNAN DO ([id number]) on 06/01/2022 8:34:18 PM Test Reason : Location : 606 : [facility] Overread By : ADAM VANN DO Edited By : ADAM VANN DO Referred By : ADAM VANN Acquired by : , Normal [facility] LABORATORYOrdered By: SYSTEM SYSTEM on 03-21-2022 Albumin BCP dye [Mass/Vol] 3.9 G/dL Invalid Interpretation Code 3.4 - 4.8 G/dL AO ADM SS Albumin/Globulin [Mass ratio] 1.4 {ratio} Invalid Interpretation Code 1.1 - 2.5 ratio AO ADM SS ALP [Catalytic activity/Vol] 105 U/L Invalid Interpretation Code 40 - 135 U/L AO ADM SS ALT With P-5'-P [Catalytic activity/Vol] 26 U/L Invalid Interpretation Code 16 - 63 U/L AO ADM SS AST With P-5'-P [Catalytic activity/Vol] 21 U/L Invalid Interpretation Code 10 - 40 U/L AO ADM SS Bilirubin [Mass/Vol] 0.5 mg/dL Invalid Interpretation Code 0.2 - 1.0 mg/dL AO ADM SS Calcium [Mass/Vol] 9.2 mg/dL Invalid Interpretation Code 8.4 - 10.2 mg/dL AO ADM SS Chloride [Moles/Vol] 105 mmol/L Invalid Interpretation Code 98 - 107 mmol/L AO ADM SS CO2 [Moles/Vol] 29 mmol/L Invalid Interpretation Code 23 - 31 mmol/L AO ADM SS Creatinine [Mass/Vol] 1.02 mg/dL Invalid Interpretation Code 0.70 - 1.30 mg/dL AO ADM SS Electrolyte Balance 6.0 mEq/L Invalid Interpretation Code 4.0 - 15.0 mEq/L AO ADM SS GFR 89 ml/min/1.73sqm Invalid Interpretation Code AO Chemistry S GFR Non- 73 ml/min/1.73sqm Invalid Interpretation Code AO Chemistry S Globulin 2.8 G/dL Invalid Interpretation Code AO ADM SS Glucose [Mass/Vol] 99 mg/dL Invalid Interpretation Code 80 - 115 mg/dL AO ADM SS Potassium [Moles/Vol] 4.4 mmol/L Invalid Interpretation Code 3.5 - 5.1 mmol/L AO ADM SS Protein [Mass/Vol] 6.7 G/dL Invalid Interpretation Code 6.4 - 8.2 G/dL AO ADM SS Sodium [Moles/Vol] 140 mmol/L Invalid Interpretation Code 136 - 145 mmol/L AO ADM SS Urea nitrogen [Mass/Vol] 16 mg/dL Invalid Interpretation Code 7 - 18 mg/dL AO ADM SS Urea nitrogen/Creatinine [Mass ratio] 16 ratio Invalid Interpretation Code 7 - 27 ratio AO ADM SS LABORATORYOrdered By: Karl Pool on 03-21-2022 Basophil, Absolute 0.0 103/mcL Invalid Interpretation Code 0.0 - 0.2 10^3/mcL AO Workflow SS Basophils/100 WBC (Bld) 0.6 % Invalid Interpretation Code 0.0 - 2.5 % AO Workflow SS Eosinophil, Absolute 0.3 103/mcL Invalid Interpretation Code 0.0 - 0.4 10^3/mcL AO Workflow SS Eosinophils/100 WBC (Bld) 4.4 % Invalid Interpretation Code 0.0 - 7.0 % AO Workflow SS Erythrocyte distribution width (RBC) [Ratio] 13.4 % Invalid Interpretation Code 11.5 - 14.5 % AO Workflow SS Hematocrit (Bld) [Volume fraction] 44.9 % Invalid Interpretation Code 42.0 - 52.0 % AO Workflow SS Hemoglobin (Bld) [Mass/Vol] 15.1 G/dL Invalid Interpretation Code 14.0 - 18.0 G/dL AO Workflow SS Lymphocyte, Absolute 2.0 103/mcL Invalid Interpretation Code 0.8 - 3.9 10^3/mcL AO Workflow SS Lymphocytes/100 WBC (Bld) 35.6 % Invalid Interpretation Code 10.0 - 50.0 % AO Workflow SS MCH (RBC) [Entitic mass] 29.3 pg Invalid Interpretation Code 27.0 - 31.2 pg AO Workflow SS MCHC 33.7 G/dL Invalid Interpretation Code 31.8 - 35.4 G/dL AO Workflow SS MCV (RBC) [Entitic vol] 86.9 fL Invalid Interpretation Code 80.0 - 94.0 fL AO Workflow SS Monocyte, Absolute 0.5 103/mcL Invalid Interpretation Code 0.2 - 1.0 10^3/mcL AO Workflow SS Monocytes/100 WBC (Bld) 8.9 % Invalid Interpretation Code 1.7 - 13.0 % AO Workflow SS Neutrophil, Absolute 2.9 103/mcL Invalid Interpretation Code 2.9 - 6.2 10^3/mcL AO Workflow SS Neutrophils/100 WBC (Bld) 50.5 % Invalid Interpretation Code 37.0 - 80.0 % AO Workflow SS Platelet mean volume (Bld) [Entitic vol] 7.5 fL Invalid Interpretation Code 7.4 - 10.4 fL AO Workflow SS Platelets (Bld) [#/Vol] 207 103/mcL Invalid Interpretation Code 130 - 400 10^3/mcL AO Workflow SS RBC (Bld) [#/Vol] 5.16 106/mcL Invalid Interpretation Code 4.04 - 6.13 10^6/mcL AO Workflow SS WBC (Bld) [#/Vol] 5.7 103/mcL Invalid Interpretation Code 4.6 - 10.8 10^3/mcL AO Workflow SS LABORATORYOrdered By: Carolee Arredondo on 03-21-2022 Cholesterol [Mass/Vol] 269 mg/dL Invalid Interpretation Code 0 - 200 mg/dL AO ADM SS Cholesterol in HDL [Mass/Vol] 64 mg/dL Invalid Interpretation Code 40 - 60 mg/dL AO ADM SS Cholesterol in LDL [Mass/Vol] 184 mg/dL Invalid Interpretation Code 0 - 130 mg/dL AO ADM SS Triglyceride [Mass/Vol] 107 mg/dL Invalid Interpretation Code 0 - 150 mg/dL AO ADM SS LABORATORYOrdered By: Karl Pool on 01-14-2022 Albumin BCP dye [Mass/Vol] 3.9 G/dL Invalid Interpretation Code 3.4 - 4.8 G/dL AO ADM SS Albumin/Globulin [Mass ratio] 1.6 {ratio} Invalid Interpretation Code 1.1 - 2.5 ratio AO ADM SS ALP [Catalytic activity/Vol] 87 U/L Invalid Interpretation Code 40 - 135 U/L AO ADM SS ALT With P-5'-P [Catalytic activity/Vol] 30 U/L Invalid Interpretation Code 16 - 63 U/L AO ADM SS AST With P-5'-P [Catalytic activity/Vol] 20 U/L Invalid Interpretation Code 10 - 40 U/L AO ADM SS Bilirubin [Mass/Vol] 0.6 mg/dL Invalid Interpretation Code 0.2 - 1.0 mg/dL AO ADM SS Calcium [Mass/Vol] 8.9 mg/dL Invalid Interpretation Code 8.4 - 10.2 mg/dL AO ADM SS Chloride [Moles/Vol] 105 mmol/L Invalid Interpretation Code 98 - 107 mmol/L AO ADM SS Cholesterol [Mass/Vol] 241 mg/dL Invalid Interpretation Code 0 - 200 mg/dL AO ADM SS Cholesterol in HDL [Mass/Vol] 60 mg/dL Invalid Interpretation Code 40 - 60 mg/dL AO ADM SS Cholesterol in LDL [Mass/Vol] 162 mg/dL Invalid Interpretation Code 0 - 130 mg/dL AO ADM SS CO2 [Moles/Vol] 30 mmol/L Invalid Interpretation Code 23 - 31 mmol/L AO ADM SS Creatinine [Mass/Vol] 1.11 mg/dL Invalid Interpretation Code 0.70 - 1.30 mg/dL AO ADM SS Electrolyte Balance 8.0 mEq/L Invalid Interpretation Code 4.0 - 15.0 mEq/L AO ADM SS Globulin 2.4 G/dL Invalid Interpretation Code AO ADM SS Glucose [Mass/Vol] 99 mg/dL Invalid Interpretation Code 80 - 115 mg/dL AO ADM SS Potassium [Moles/Vol] 4.0 mmol/L Invalid Interpretation Code 3.5 - 5.1 mmol/L AO ADM SS Protein [Mass/Vol] 6.3 G/dL Invalid Interpretation Code 6.4 - 8.2 G/dL AO ADM SS Sodium [Moles/Vol] 143 mmol/L Invalid Interpretation Code 136 - 145 mmol/L AO ADM SS Triglyceride [Mass/Vol] 94 mg/dL Invalid Interpretation Code 0 - 150 mg/dL AO ADM SS Urea nitrogen [Mass/Vol] 14 mg/dL Invalid Interpretation Code 7 - 18 mg/dL AO ADM SS Urea nitrogen/Creatinine [Mass ratio] 13 ratio Invalid Interpretation Code 7 - 27 ratio AO ADM SS LABORATORYOrdered By: Carolee Arredondo on 01-14-2022 Basophil, Absolute 0.0 103/mcL Invalid Interpretation Code 0.0 - 0.2 10^3/mcL AO Workflow SS Basophils/100 WBC (Bld) 0.6 % Invalid Interpretation Code 0.0 - 2.5 % AO Workflow SS Eosinophil, Absolute 0.2 103/mcL Invalid Interpretation Code 0.0 - 0.4 10^3/mcL AO Workflow SS Eosinophils/100 WBC (Bld) 3.3 % Invalid Interpretation Code 0.0 - 7.0 % AO Workflow SS Erythrocyte distribution width (RBC) [Ratio] 13.8 % Invalid Interpretation Code 11.5 - 14.5 % AO Workflow SS Hematocrit (Bld) [Volume fraction] 43.0 % Invalid Interpretation Code 42.0 - 52.0 % AO Workflow SS Hemoglobin (Bld) [Mass/Vol] 14.6 G/dL Invalid Interpretation Code 14.0 - 18.0 G/dL AO Workflow SS Lymphocyte, Absolute 1.8 103/mcL Invalid Interpretation Code 0.8 - 3.9 10^3/mcL AO Workflow SS Lymphocytes/100 WBC (Bld) 31.5 % Invalid Interpretation Code 10.0 - 50.0 % AO Workflow SS MCH (RBC) [Entitic mass] 29.7 pg Invalid Interpretation Code 27.0 - 31.2 pg AO Workflow SS MCHC 34.1 G/dL Invalid Interpretation Code 31.8 - 35.4 G/dL AO Workflow SS MCV (RBC) [Entitic vol] 87.1 fL Invalid Interpretation Code 80.0 - 94.0 fL AO Workflow SS Monocyte, Absolute 0.5 103/mcL Invalid Interpretation Code 0.2 - 1.0 10^3/mcL AO Workflow SS Monocytes/100 WBC (Bld) 9.6 % Invalid Interpretation Code 1.7 - 13.0 % AO Workflow SS Neutrophil, Absolute 3.1 103/mcL Invalid Interpretation Code 2.9 - 6.2 10^3/mcL AO Workflow SS Neutrophils/100 WBC (Bld) 55.0 % Invalid Interpretation Code 37.0 - 80.0 % AO Workflow SS Platelet mean volume (Bld) [Entitic vol] 7.8 fL Invalid Interpretation Code 7.4 - 10.4 fL AO Workflow SS Platelets (Bld) [#/Vol] 213 103/mcL Invalid Interpretation Code 130 - 400 10^3/mcL AO Workflow SS RBC (Bld) [#/Vol] 4.93 106/mcL Invalid Interpretation Code 4.04 - 6.13 10^6/mcL AO Workflow SS WBC (Bld) [#/Vol] 5.6 103/mcL Invalid Interpretation Code 4.6 - 10.8 10^3/mcL AO Workflow SS LABORATORYOrdered By: SYSTEM SYSTEM on 01-14-2022 GFR 81 ml/min/1.73sqm Invalid Interpretation Code AO Chemistry S GFR Non- 66 ml/min/1.73sqm Invalid Interpretation Code AO Chemistry S LABORATORYOrdered By: Carolee Arredondo on 12-03-2021 Albumin BCP dye [Mass/Vol] 3.9 G/dL Invalid Interpretation Code 3.4 - 4.8 G/dL AO ADM SS Albumin/Globulin [Mass ratio] 1.4 {ratio} Invalid Interpretation Code 1.1 - 2.5 ratio AO ADM SS ALP [Catalytic activity/Vol] 105 U/L Invalid Interpretation Code 40 - 135 U/L AO ADM SS ALT With P-5'-P [Catalytic activity/Vol] 23 U/L Invalid Interpretation Code 16 - 63 U/L AO ADM SS AST With P-5'-P [Catalytic activity/Vol] 26 U/L Invalid Interpretation Code 10 - 40 U/L AO ADM SS Bilirubin [Mass/Vol] 0.6 mg/dL Invalid Interpretation Code 0.2 - 1.0 mg/dL AO ADM SS Calcium [Mass/Vol] 9.1 mg/dL Invalid Interpretation Code 8.4 - 10.2 mg/dL AO ADM SS Chloride [Moles/Vol] 106 mmol/L Invalid Interpretation Code 98 - 107 mmol/L AO ADM SS Cholesterol [Mass/Vol] 271 mg/dL Invalid Interpretation Code 0 - 200 mg/dL AO ADM SS Cholesterol in HDL [Mass/Vol] 62 mg/dL Invalid Interpretation Code 40 - 60 mg/dL AO ADM SS Cholesterol in LDL [Mass/Vol] 187 mg/dL Invalid Interpretation Code 0 - 130 mg/dL AO ADM SS CO2 [Moles/Vol] 28 mmol/L Invalid Interpretation Code 23 - 31 mmol/L AO ADM SS Creatinine [Mass/Vol] 1.07 mg/dL Invalid Interpretation Code 0.70 - 1.30 mg/dL AO ADM SS Electrolyte Balance 9.0 mEq/L Invalid Interpretation Code 4.0 - 15.0 mEq/L AO ADM SS Globulin 2.7 G/dL Invalid Interpretation Code AO ADM SS Glucose [Mass/Vol] 102 mg/dL Invalid Interpretation Code 80 - 115 mg/dL AO ADM SS Potassium [Moles/Vol] 4.3 mmol/L Invalid Interpretation Code 3.5 - 5.1 mmol/L AO ADM SS Protein [Mass/Vol] 6.6 G/dL Invalid Interpretation Code 6.4 - 8.2 G/dL AO ADM SS Sodium [Moles/Vol] 143 mmol/L Invalid Interpretation Code 136 - 145 mmol/L AO ADM SS Triglyceride [Mass/Vol] 112 mg/dL Invalid Interpretation Code 0 - 150 mg/dL AO ADM SS Urea nitrogen [Mass/Vol] 15 mg/dL Invalid Interpretation Code 7 - 18 mg/dL AO ADM SS Urea nitrogen/Creatinine [Mass ratio] 14 ratio Invalid Interpretation Code 7 - 27 ratio AO ADM SS LABORATORYOrdered By: Nereyda Butterfield on 12-03-2021 Basophil, Absolute 0.0 103/mcL Invalid Interpretation Code 0.0 - 0.2 10^3/mcL AO Workflow SS Basophils/100 WBC (Bld) 0.8 % Invalid Interpretation Code 0.0 - 2.5 % AO Workflow SS Eosinophil, Absolute 0.1 103/mcL Invalid Interpretation Code 0.0 - 0.4 10^3/mcL AO Workflow SS Eosinophils/100 WBC (Bld) 2.5 % Invalid Interpretation Code 0.0 - 7.0 % AO Workflow SS Erythrocyte distribution width (RBC) [Ratio] 13.4 % Invalid Interpretation Code 11.5 - 14.5 % AO Workflow SS Hematocrit (Bld) [Volume fraction] 43.9 % Invalid Interpretation Code 42.0 - 52.0 % AO Workflow SS Hemoglobin (Bld) [Mass/Vol] 15.0 G/dL Invalid Interpretation Code 14.0 - 18.0 G/dL AO Workflow SS Lymphocyte, Absolute 1.8 103/mcL Invalid Interpretation Code 0.8 - 3.9 10^3/mcL AO Workflow SS Lymphocytes/100 WBC (Bld) 29.9 % Invalid Interpretation Code 10.0 - 50.0 % AO Workflow SS MCH (RBC) [Entitic mass] 29.9 pg Invalid Interpretation Code 27.0 - 31.2 pg AO Workflow SS MCHC 34.2 G/dL Invalid Interpretation Code 31.8 - 35.4 G/dL AO Workflow SS MCV (RBC) [Entitic vol] 87.2 fL Invalid Interpretation Code 80.0 - 94.0 fL AO Workflow SS Monocyte, Absolute 0.4 103/mcL Invalid Interpretation Code 0.2 - 1.0 10^3/mcL AO Workflow SS Monocytes/100 WBC (Bld) 7.6 % Invalid Interpretation Code 1.7 - 13.0 % AO Workflow SS Neutrophil, Absolute 3.5 103/mcL Invalid Interpretation Code 2.9 - 6.2 10^3/mcL AO Workflow SS Neutrophils/100 WBC (Bld) 59.2 % Invalid Interpretation Code 37.0 - 80.0 % AO Workflow SS Platelet mean volume (Bld) [Entitic vol] 7.3 fL Invalid Interpretation Code 7.4 - 10.4 fL AO Workflow SS Platelets (Bld) [#/Vol] 224 103/mcL Invalid Interpretation Code 130 - 400 10^3/mcL AO Workflow SS RBC (Bld) [#/Vol] 5.04 106/mcL Invalid Interpretation Code 4.04 - 6.13 10^6/mcL AO Workflow SS WBC 5.9 103/mcL Invalid Interpretation Code 4.6 - 10.8 10^3/mcL AO Workflow SS LABORATORYOrdered By: SYSTEM SYSTEM on 12-03-2021 GFR 84 ml/min/1.73sqm Invalid Interpretation Code AO Chemistry S GFR Non- 69 ml/min/1.73sqm Invalid Interpretation Code AO Chemistry S CNOVon 10-23-2021 CNOV Office Visit (TWAN ) -- ALYX MOTLEY ([id number]) 1955 M Date Time Provider Department 10/23/21 1:45 PM ADAM VANN During your visit today, we recorded the following information about you: Pulse Blood pressure Weight Height 74/minute 110/84 74.8 kg 1.727 m Adam Vann, 10/24/2021 5:02 AM Signed Referring Provider: Jeremías Nuñez * Date: October 23, 2021 Chief Complaint: CARD New Patient Consult (heart murmur) HISTORY OF PRESENT ILLNESS: Alyx Motley is a 66 year old male who presents for CARD New Patient Consult (heart murmur). ALLERGIES Allergen Reactions - Bee Sting PAST MEDICAL HISTORY: PAST MEDICAL HISTORY Diagnosis Date - Bicuspid aortic valve - Chronic back pain - COVID-19 02/2020 - Diverticulosis - GERD (gastroesophageal reflux disease) - H/O echocardiogram 09/06/2021 Ef 50-55%, bicuspid aortic valve , aortic root borderline dilated ( 38 mm) ascending aorta mildly dilated (37 mm), mvp, posterior leaflet - History of prostate cancer 2008 - Hypothyroidism - IBS (irritable bowel syndrome) - Mixed hyperlipidemia - Murmur - MVP (mitral valve prolapse) - ROBIN (obstructive sleep apnea) PAST SURGICAL HISTORY Procedure Laterality Date - COLONOSCOPY 2017 polypectomy - COLONOSCOPY FLX DX W/COLLJ SPEC WHEN PFRMD 02/22/2015 Colonoscopy - EGD ([facility]) 10/22/2017 - ESOPHAGOGASTRODUODENOSCOPY TRANSORAL DIAGNOSTIC 02/22/2015 EGD - PROSTATE BIOPSY - PROSTATECTOMY;RADICAL RETROPUBIC 03/26/2009 - TONSILLECTOMY PRIMARY/SECONDARY Tonsillectomy FAMILY HISTORY Problem Relation Age of Onset - Prostate Cancer Maternal Grandfather - Colon Cancer Mother - Ischemic Heart Disease Maternal Grandmother SOCIAL HISTORY: Tobacco Use: Never Alcohol Use: No Drug Use: No 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 - loratadine (CLARITIN) 10 mg tablet Take 1 tablet by mouth as needed. - pantoprazole DR (PROTONIX) 40 mg tablet Take 1 tablet by mouth once daily. - tiZANidine HCl (ZANAFLEX) 4 mg capsule Take 1 capsule by mouth three times daily. - Ranitidine HCl 300 mg tablet Take 1 tablet by mouth daily at bedtime. - levothyroxine (SYNTHROID) 50 mcg tablet Take 50 mcg by mouth daily before breakfast. No current facility-administered medications for this visit. I have personally reviewed the patients past medical history including social, family, surgical, diagnostics, and medications./AB REVIEW OF SYSTEMS: Review of Systems Constitutional: Negative for chills and fatigue. Respiratory: Negative for chest tightness and shortness of breath. Cardiovascular: Negative for chest pain, palpitations and leg swelling. Neurological: Negative for dizziness, syncope, weakness and light-headedness. Hematological: Does not bruise/bleed easily. Psychiatric/Behavioral: Negative for confusion and hallucinations. Vitals: BP 110/84 (BP Site: Left Arm, BP Position: Sitting) Pulse 74 Ht 172.7 cm (5' 8) Wt 74.8 kg (165 lb) BMI 25.09 kg/m? PHYSICAL EXAMINATION: BP 110/84 (BP Site: Left Arm, BP Position: Sitting) Pulse 74 Ht 172.7 cm (5' 8) Wt 74.8 kg (165 lb) BMI 25.09 kg/m? Last 3 Encounter BP Readings: Date: BP: 12/29/2018 157/90 03/12/2015 118/76 01/30/2015 119/76 Last 3 Encounter Pulse Readings: Date: Pulse: 12/29/2018 93 03/12/2015 87 01/30/2015 95 Last 3 Encounter Wt Readings: Date: Wt: 12/29/2018 74.7 kg (164 lb 11.2 oz) 03/12/2015 75.7 kg (166 lb 12.8 oz) 01/30/2015 75.8 kg (167 lb) Physical Exam Vitals reviewed. Constitutional: General: He is not in acute distress. Cardiovascular: Rate and Rhythm: Normal rate and regular rhythm. Pulses: Carotid pulses are 2+ on the right side and 2+ on the left side. Radial pulses are 2+ on the right side and 2+ on the left side. Femoral pulses are 2+ on the right side and 2+ on the left side. Popliteal pulses are 2+ on the right side and 2+ on the left side. Dorsalis pedis pulses are 2+ on the right side and 2+ on the left side. Posterior tibial pulses are 2+ on the right side and 2+ on the left side. Heart sounds: Murmur heard. Systolic murmur is present with a grade of 2/6. Comments: PMI not displaced. 2nd heart sound loud. Pulmonary: Effort: Pulmonary effort is normal. Breath sounds: Normal breath sounds. Abdominal: General: Abdomen is flat. Bowel sounds are normal. Palpations: Abdomen is soft. Tenderness: There is no abdominal tenderness. Musculoskeletal: Right lower leg: No edema. Left lower leg: No edema. Skin: General: Skin is warm. Findings: No rash or wound. Neurological: Mental St (more content not included)... Normal [facility] Serum or plasma gastrin raquel urement (mass/volume)on 10-08-2021 Gastrin [Mass/Vol] 20 pg/mL 0-115 [facility] Work Phone: Comment on above: Siemens Immulite 200 0 Immunochemiluminometric assay (ICMA)Values obtained with different assay methods or kits cannotbe used interchangeably. Results cannot be interpreted asabsolute evidence of the presence or absence of malignantdisease.Performed at: [address] [id number] Director: Urvashi Judge MD, Phone: [phone] Absolute lymphocyte counton 10-04-2021 Lymphocytes Auto (Unsp spec) [#/Vol] 1.67 10*3/uL 0.83-4.51 [facility] Work Phone: Basophil percentageon 2021 Basophil percentage < 0.2 AI 0.0-0.9 [facility] Work Phone: Basophils/100 WBC (Bld) 0.6 % 0-1 [facility] Work Phone: Bilirubin [Mass/Vol] 0.50 mg/dL 0.20-1.00 [facility] Work Phone: Comment on above: For patients on eltr ombopag therapy, use of Dimension [place] TBIL is not recommended. Chloride [Moles/Vol] 107 mmol/L 98-107 [facility] Work Phone: Eosinophils/100 WBC (Bld) 1.1 % 0-5 [facility] Work Phone: Glucose [Mass/Vol] 95 mg/dL 74-106 [facility] Work Phone: Neutrophils (Bld) [#/Vol] 4.3 10*3/uL 2.0-7.7 [facility] Work Phone: [phone] Neutrophils/100 WBC (Bld) 65.6 % 47-70 [facility] Work Phone: [phone] Potassium [Moles/Vol] 4.0 mmol/L 3.5-5.1 [facility] Work Phone: Protein [Mass/Vol] 7.2 g/dL 6.4-8.2 [facility] Work Phone: Sodium [Moles/Vol] 139 mmol/L 136-145 [facility] Work Phone: [phone] WBC (Bld) [#/Vol] 6.6 10*3/uL 4.4-11.0 [facility] Work Phone: Blood erythrocytes count (nu mber/volume)on 10-04-2021 RBC (Bld) [#/Vol] 5.36 10*6/uL 4.6-6.2 [facility] Work [facility]: Blood hemoglobin measurement (mass/volume)on 10-04-2021 Hemoglobin (Bld) [Mass/Vol] 16.2 g/dL 13.0-16.5 [facility] Work Phone: [phone] Blood lymphocytes/100 leukoc yteson 10-04-2021 Lymphocytes/100 WBC (Bld) 25.4 % 19-41 [facility] Work Phone: [phone] Blood monocytes/100 leukocyt eson 10-04-2021 Monocytes/100 WBC (Bld) 6.5 % 0-10 [facility] Work Phone: [phone] Blood platelet mean volumeon 10-04-2021 Platelet mean volume (Bld) [Entitic vol] 9.5 fL 6.2-12.0 [facility] Work Phone: Determination of erythrocyte mean corpuscular volume (MCV)on 10-04-2021 MCV (RBC) [Entitic vol] 89.6 fL 80-94 [facility] Work Phone: Erythrocyte sedimentation ra ernesto 10-04-2021 ESR (Bld) [Velocity] 12 mm/h 0-20 [facility] Work [facility]: Hematocrit Auto (Bld) [Volum e fraction]on 10-04-2021 Hematocrit (Bld) [Volume fraction] 48.0 % 40-54 [facility] Work Phone: Laboratory - Chemistry and C hemistry - challengeon 10-04-2021 ALP [Catalytic activity/Vol] 95 U/L 45-117 [facility] Work Phone: ALT [Catalytic activity/Vol] 26 U/L 16-61 [facility] Work Phone: CO2 [Moles/Vol] 24.0 mmol/L 21.0-32.0 [facility] Work Phone: Globulin (S) [Mass/Vol] 3.4 g/dL 2.2-4.2 [facility] Work Phone: Urea nitrogen/Creatinine [Mass ratio] 15.0 mg/mg 10-20 [facility] Work Phone: Laboratory - Hematology and Cell countson 10-04-2021 Erythrocyte distribution width (RBC) [Entitic vol] 41.9 fL 35.1-43.9 [facility] Work Phone: Erythrocyte distribution width (RBC) [Ratio] 12.8 % 11.6-14.6 [facility] Work Phone: Immature granulocytes/100 WBC (Bld) 0.800 % 0.0-0.9 [facility] Work Phone: Comment on above: IG% - Immature Granu locytes (promyelocytes, myelocytes and metamyelocytes) > 1% indicates that a LEFT SHIFT is Present. MCH (RBC) [Entitic mass] 30.2 pg 27.0-32.0 [facility] Work Phone: Nucleated RBC/100 WBC (Bld) [Ratio] 0 % 0-5 [facility] Work Phone: MCHC Auto (RBC) [Mass/Vol]on 10-04-2021 MCHC (RBC) [Mass/Vol] 33.8 g/dL 32-36 [facility] Work Phone: No Panel Informationon 10-04 Centromere B Antibody <0.2 AI 0.0-0.9 [facility] Work Phone: Endomysial IgA Antibody Negative Negative [facility] Work Phone: Estimated GFR (MDRD) Amer 104 mL/min >60 [facility] Work Phone: Comment on above: GFR Calc Estimated GFR (MDRD) Non-Af Amer 86 mL/min >60 [facility] Work Phone: Comment on above: Non- GFR Calc [employer] Antibody <0.2 AI 0.0-0.9 [facility] Work Phone: Platelets bldon 10-04-2021 Platelets (Bld) [#/Vol] 235 10*3/uL 150-450 [facility] Work Phone: Serum DNA double strand anti body assay (units/volume)on 10-04-2021 DNA double strand Ab Qn (S) [IU]/mL 0-9 [facility] Work Phone: Comment on above: Negative <5 Equivoca l 5 - 9 Positive >9 Serum IgA measurement (units /volume)on 10-04-2021 IgA Qn (S) 130 mg/dL 61-437 [facility] Work Phone: Comment on above: Performed at: [address] [id number] Director: Mahesh Medley PhD, Phone: [phone] Serum Nurys-1 antibody assay (u nits/volume)on 10-04-2021 Nurys-1 extractable nuclear Ab Qn (S) <0.2 AI 0.0-0.9 [facility] Work Phone: Serum Scl-70 extractable nuc lear antibody assay (units/volume)on 10-04-2021 SCL-70 extractable nuclear Ab Qn (S) <0.2 AI 0.0-0.9 [facility] Work Phone: Serum [place] extractable nucl ear antibody detectionon 10-04-2021 [place] extractable nuclear Ab Ql (S) <0.2 AI 0.0-0.9 [facility] Work Phone: Serum or plasma C reactive p rotein measurement (mass/volume)on 10-04-2021 CRP [Mass/Vol] mg/L 0.0-3.0 [facility] Work Phone: Comment on above: C-Reactive Protein ( CRP) provides useful information for thediagnosis, therapy and monitoring of inflammatory processesand associated diseases. For the evaluation of Relative Riskfor Cardiovascular Disease, a High Sensitivity CRP (HSCRP)should be ordered. Serum or plasma albumin raquel urement (mass/volume)on 10-04-2021 Albumin [Mass/Vol] 3.8 g/dL 3.2-5.0 [facility] Work Phone: Serum or plasma albumin/glob ulin mass ratioon 10-04-2021 Albumin/Globulin [Mass ratio] 1.1 {ratio} 0.9-2.4 [facility] Work Phone: Serum or plasma calcium raquel urement (mass/volume)on 10-04-2021 Calcium [Mass/Vol] 9.1 mg/dL 8.5-10.1 [facility] Work Phone: Serum or plasma creatinine m easurement (mass/volume)on 10-04-2021 Creatinine [Mass/Vol] 0.93 mg/dL 0.70-1.30 [facility] Work Phone: Comment on above: The validity of the calculated GFR & GFRAA in patients over 70 years has not been determined. Clinical correlation is essential. Serum or plasma ferritin atif surement (mass/volume)on 10-04-2021 Ferritin [Mass/Vol] 110 ng/mL 26-388 [facility] Work Phone: Serum or plasma urea nitroge n measurement (mass/volume)on 10-04-2021 Urea nitrogen [Mass/Vol] 14 mg/dL 7-18 [facility] Work Phone: Serum tissue transglutaminas e IgA antibody assay (units/volume)on 10-04-2021 tTG IgA Qn (S) <2 U/mL 0-3 [facility] Work Phone: Comment on above: Negative 0 - 3 Weak Positive 4 - 10 Positive >10 Tissue Transglutaminase (tTG) has been identified as the endomysial antigen. Studies have demonstr- ated that endomysial IgA antibodies have over 99% specificity for gluten sensitive enteropathy. Thin prep Papanicolaou smear with manual screeningon 10-04-2021 Thin prep Papanicolaou smear with manual screening 21 U/L 15-37 [facility] Work Phone: Thin prep Papanicolaou smear with manual screening 8 5-15 [facility] Work Phone: Thin prep Papanicolaou smear with manual screening 175 U/L 87-241 [facility] Work Phone: LABORATORYOrdered By: Liz Peraza on 07-31-2021 Albumin BCP dye [Mass/Vol] 4.0 G/dL Invalid Interpretation Code 3.4 - 4.8 G/dL AO ADM SS Albumin/Globulin [Mass ratio] 1.3 {ratio} Invalid Interpretation Code 1.1 - 2.5 ratio AO ADM SS ALP [Catalytic activity/Vol] 96 U/L Invalid Interpretation Code 40 - 135 U/L AO ADM SS ALT With P-5'-P [Catalytic activity/Vol] 29 U/L Invalid Interpretation Code 16 - 63 U/L AO ADM SS AST With P-5'-P [Catalytic activity/Vol] 5 U/L Invalid Interpretation Code 10 - 40 U/L AO ADM SS Bilirubin [Mass/Vol] 0.5 mg/dL Invalid Interpretation Code 0.2 - 1.0 mg/dL AO ADM SS Calcium [Mass/Vol] 9.7 mg/dL Invalid Interpretation Code 8.4 - 10.2 mg/dL AO ADM SS Chloride [Moles/Vol] 103 mmol/L Invalid Interpretation Code 98 - 107 mmol/L AO ADM SS Cholesterol [Mass/Vol] 296 mg/dL Invalid Interpretation Code 0 - 200 mg/dL AO ADM SS Cholesterol in HDL [Mass/Vol] 65 mg/dL Invalid Interpretation Code 40 - 60 mg/dL AO ADM SS Cholesterol in LDL [Mass/Vol] 213 mg/dL Invalid Interpretation Code 0 - 130 mg/dL AO ADM SS CO2 [Moles/Vol] 28 mmol/L Invalid Interpretation Code 23 - 31 mmol/L AO ADM SS Creatinine [Mass/Vol] 1.02 mg/dL Invalid Interpretation Code 0.70 - 1.30 mg/dL AO ADM SS Electrolyte Balance 10.0 mEq/L Invalid Interpretation Code 4.0 - 15.0 mEq/L AO ADM SS Globulin 3.0 G/dL Invalid Interpretation Code AO ADM SS Glucose [Mass/Vol] 98 mg/dL Invalid Interpretation Code 80 - 115 mg/dL AO ADM SS Potassium [Moles/Vol] 3.8 mmol/L Invalid Interpretation Code 3.5 - 5.1 mmol/L AO ADM SS Protein [Mass/Vol] 7.0 G/dL Invalid Interpretation Code 6.4 - 8.2 G/dL AO ADM SS Sodium [Moles/Vol] 141 mmol/L Invalid Interpretation Code 136 - 145 mmol/L AO ADM SS Triglyceride [Mass/Vol] 92 mg/dL Invalid Interpretation Code 0 - 150 mg/dL AO ADM SS Urea nitrogen [Mass/Vol] 13 mg/dL Invalid Interpretation Code 7 - 18 mg/dL AO ADM SS Urea nitrogen/Creatinine [Mass ratio] 13 ratio Invalid Interpretation Code 7 - 27 ratio AO ADM SS LABORATORYOrdered By: SYSTEM SYSTEM on 07-31-2021 Cancer Ag 19-9 Qn 12.5 [arb'U]/mL Invalid Interpretation Code 0.0 - 35.0 U/mL AH ADM SS Carcinoembryonic Ag [Mass/Vol] 1.1 ng/mL Invalid Interpretation Code 0.0 - 3.0 ng/mL AH ADM SS GFR 89 ml/min/1.73sqm Invalid Interpretation Code AO Chemistry S GFR Non- 73 ml/min/1.73sqm Invalid Interpretation Code AO Chemistry S LABORATORYOrdered By: CLEV_C OSMAN CONTRIBUTOR_SYSTEM on 07-31-2021 PSA, % Free See Below Invalid Interpretation Code AO Sendouts SS Comment on above: Result Comment: Perc ent free not reported when Total and/or Free PSA value is below the lower limit of detection. Unable to calculate because free PSA is below assay range of 0.02 ng/mL. Total and free PSA test methodology used is the Electrochemiluminescence Immunoassay by [employer]. Total or free PSA values by differing methodologies cannot be interchanged. The below table lists the probability of finding prostate cancer upon needle biopsy, for men 50 years or older and total PSA concentrations from 4.0-10.0 ng/mL. Results should be interpreted within the broader clinical context. Free PSA(%) 50-59 years 60-69 years >69 years <11 49.2% 57.5% 64.5% 11-18 26.9% 33.9% 40.8% 19-25 18.3% 23.9% 29.7% >25 9.1% 12.2% 15.8% Performed By: [facility] [place] [address] Trade Economist: Raphael Delgado III, M.D. CLIA#: [id number] PSA, Diagnostic ng/mL Invalid Interpretation Code <2.60ng/mL AO Sendouts SS Comment on above: Result Comment: Tota l PSA test methodology used is the Electrochemiluminescence Immunoassay by [employer]. Total PSA values by differing methodologies cannot be interchanged. Performed By: [facility] [email or web address] [address] Trade Economist: Raphael Delgado III, M.D. CLIA#: [id number] No Panel Information Enteric Bacteriology [facility] Work Phone: Vital Signs Date Time Vital Sign Value Performing Clinician Facility 07-14-2024 09:19-0400 Body height 172.[address] Lian Anthony MD Work Phone: [facility] 02-12-2024 11:11050 Body height 172.7 cm [employer] Work Phone: [facility] 02-12-2024 11:11-0500 Body mass index (BMI) [Ratio] 24.81 kg/m2 [employer] Work Phone: [facility] 02-12-2024 11:11-0500 Body weight 74 kg Adam Gross DO Work Phone: [facility] 02-12-2024 11:11-0500 Diastolic blood pressure 74 mm[Hg] Adam Gross DO Work Phone: [facility] 02-12-2024 11:11-0500 Heart rate 63 /min Adam Gross DO Work Phone: [facility] 02-12-2024 11:11-0500 Systolic blood pressure 122 mm[Hg] Adam Gross DO Work Phone: [facility] 02-25-2023 18:54-[address] SREEKANTH GIPSON DO [facility] 02-25-2023 18:54-0500 Body temperature 97.52 [degF] DR SREEKANTH GIPSON DO [facility] 02-25-2023 18:54-0500 Diastolic Blood Pressure Non-Invasive 86 mm[Hg] DR SREEKANTH GIPSON DO [facility] 02-25-2023 18:54-0500 Heart rate 78 /min DR SREEKANTH GIPSON DO [facility] 02-25-2023 18:54-0500 Respiratory rate 20 /min DR SREEKANTH GIPSON DO [facility] 02-25-2023 18:54-0500 Systolic Blood Pressure Non-Invasive 149 mm[Hg] DR SREEKANTH GIPSON DO [facility] 02-11-2023 13:05-0500 Body height 172.7 cm Adam Gross DO Work Phone: [facility] 02-11-2023 13:05-0500 Body weight 77.56 kg Adam Gross DO Work Phone: [facility] 02-11-2023 13:05-0500 Diastolic blood pressure 82 mm[Hg] Adam Gross DO Work Phone: [facility] 02-11-2023 13:05-0500 Heart rate 70 /min Adam Gross DO Work Phone: [facility] 02-11-2023 13:05-0500 Systolic blood pressure 112 mm[Hg] Adam Gross DO Work Phone: [facility] 05-14-2022 15:09-0500 Body height 172.7 cm Adam Gross DO Work Phone: [facility] 05-14-2022 15:09-0500 Body weight 75.3 kg Adam Gross DO Work Phone: [facility] 05-14-2022 15:09-0500 Diastolic blood pressure 88 mm[Hg] Adam Gross DO Work Phone: [facility]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 Auth (Eppnenrg) [id number] ORIGINAL EXAMINATION: MRI OF THE RIGHT SHOULDER WITHOUT CONTRAST 11/02/2024 8:14 am TECHNIQUE: Multiplanar multisequence MRI of the right shoulder was performed without the administration of intravenous contrast. COMPARISON: 10/06/2024 HISTORY: ORDERING SYSTEM PROVIDED HISTORY: Reason for Exam: Shoulder trauma, rotator cuff tear suspected, xray done FINDINGS: There is no evidence of acute fracture, osteonecrosis. Nonspecific marrow edema within the greater tuberosity. Rounded ossific fragment at the lateral humeral neck measuring approximately 1.0 by 1.2 x 0.9 cm. On axial series 5, image 4 there is a questionable area of corticomedullary continuation with disruption of the humeral cortex and in overlying T1 intermediate T2 hyperintense thin 3 mm rim (series 10, image 4) possibly a cartilage cap suggesting at this could be related to an osteochondroma. Mild AC joint degenerative changes.. A type 2 acromial undersurface is seen. The coracoclavicular and coracoacromial ligaments are intact. There is no subdeltoid subacromial bursitis. Subcoracoid fluid. The teres minor is intact. Minimal undersurface fraying of the lower infraspinatus tendon. The supraspinatus is intact. Moderate subscapularis tendinosis. The long head of the biceps tendon is maintained in anatomic location, without tear. There is no biceps tenosynovitis. There is no acute Hill-Sacks or Bankart lesion. Suboptimal evaluation of the labrum with lack of intra-articular contrast. No high-grade chondral lesions are present in the glenohumeral joint. Trivial glenohumeral joint fluid. There is thickening of the inferior glenohumeral ligament with mild pericapsular edema at the inferior axillary pouch. The suprascapular and spinoglenoid notches as well as the quadrilateral space have preserved fat planes. There is no evidence of muscle atrophy or acute muscle denervation. There is haziness and obliteration of in the rotator interval with thickening of the coracohumeral ligament. IMPRESSION: 1. Bone marrow edema/contusion within the greater tuberosity, may be related to recent trauma. 2. Rounded ossification at the lateral humeral neck measuring approximately 1.0 x 1.2 x 0.9 cm with area of corticomedullary continuity and overlying thin T1 intermediate T2 hyperintense rim possibly a cartilage cap suggesting this could be related to an osteochondroma. Recommend a short interval follow-up MRI with and without contrast for further characterization and ensuring stability. 3. Minimal undersurface fraying of the lower infraspinatus tendon. Moderate subscapularis tendinosis. No high-grade rotator cuff tear. 4. Haziness of the fat within the rotator interval and thickening of the inferior glenohumeral ligament with mild pericapsular edema at the inferior axillary pouch, this could be related to remote glenohumeral ligament injury. Constellation of findings can be seen in the setting of adhesive capsulitis. 5. If there is clinical concern for labral tear recommend correlation with MR arthrogram. Interpreted by: Chuy Bedoya Preliminary Report By: Chuy Bedoya Electronically signed By Chuy Bedoya Dictated Date: 11/02/2024 9:24:45 AM Prelim Date: 11/02/2024 9:37:07 AM Sign Date: 11/02/2024 9:37:07 AM Ordering Provider: LIAN ANTHONY [facility]07-03-2025 Hospital Discharge instructions Patient Education 10/06/2024 15:25:07 Bruises (Contusions) Bruises (Contusions) A contusion is a bruise. A bruise happens when a blow to your body doesn't break the skin but does break blood vessels beneath the skin. Blood leaking from the broken vessels causes redness and swelling. As it heals, your bruise is likely to turn colors like purple, green, and yellow. This is normal. The bruise should fade in 2 or 3 weeks. Factors that make you more likely to bruise Almost everyone bruises now and then. Certain people do bruise more easily than others. You're moreprone to bruising as you get older. That's because blood vessels become more fragile with age. You're also more likely to bruise if you have a clotting disorder such as hemophilia or take medicines that reduce clotting, including aspirin and coumadin. You are also more likely to bruise if you have liver disease and or drink alcohol daily. When to go to the emergency room (ER) Bruises almost always heal on their own without special treatment. But for some people, a bad bruise can be serious. Seek medical care if you: Have a clotting disorder such as hemophilia Have cirrhosis or other serious liver disease Take blood-thinning medicines such as warfarin What to expect in the ER A doctor will examine your bruise and ask about any health conditions you have. In some cases, you may have a test to check how well your blood clots. Other treatment will depend on your needs. Follow-up care Sometimes a bruise gets worse instead of better. It may become larger and more swollen. This can occur when your body donovan off a small pool of blood under the skin (hematoma). In very rare cases, your doctor may need to drain extra blood from the area. Tip: Apply an ice pack or bag of frozen peas to a bruise. Keep a thin cloth between the ice or frozen peas and your skin. The cold can help reduce redness and swelling. [id number] [employer]. [address] [place] [address]. All rights reserved. This information is not intended as a substitute for professional medical care. Always follow yourhealthcare professional's instructions. Follow Up Care 10/06/2024 13:41:58 With:LIAN ANTHONY MD Address: [address] [facility] [address] [facility] [place] [address]- When:2-4 days [facility] 07-03-2025 Note Discharge Instructions Thank you for allowing [facility] to assist you with your healthcare needs. The following is importantdischarge information regarding your hospital visit. Diagnosis from Today's Visit Contusion of right shoulder region What to Do Next Instructions from Your Care Team No qualifying data available. Post Acute Orders No qualifying data available. You Need to Schedule the Following Appointments Follow Up with LIAN ANTHONY MD When:Within 2-4 days Where:[address] [facility] [place] [address]- Allergies Bactrim Agitated Bee Stings Dust Rhinitis cyclobenzaprine Flushed complexion dicyclomine Dizziness Medications Please ask your primary doctor or pharmacist before taking any other medication not listed, including over the counter drugs, herbal medications, vitamins and or supplements as they may interact withyour home medications. What How Much When Why Instructions Last Dose Unchanged calcium-vitamin D (Calcium 600+D oral tablet) 1 tab(s) by mouth Every day Medicare annual wellness visit, subsequent Right hip pain Duration: 90 Days Unchanged diclofenac topical (Voltaren 1% topical gel) 2 gram(s) Topical Once a day Duration: 10 Days Unchanged EPINEPHrine (EpiPen 2-Tushar 0.3 mg injectable kit) 0.3 Milligram Subcutaneous As Directed as needed for Allergic reaction Pharyngitis Groin injury Unchanged herbal/ nutritional product (Probiotic) Unchanged nutritional supplement Beet chews Unchanged omeprazole (omeprazole 40 mg oral delayed release capsule) 2 cap by mouth Once a day Unchanged pancrelipase (Creon 36,000 units oral delayed release capsule) 1 cap by mouth Three (3) times a day Unchanged pitavastatin (Livalo 4 mg oral tablet) 1 tab(s) by mouth Once a day Please take this list to your next doctor s visit. Bring all medications you take, including over the counter medications, herbals and other supplements with you to your doctor s visit. Patients and families are reminded to discard old lists and to update any records with all medication providers or retail pharmacies. Education Materials Bruises (Contusions) A contusion is a bruise. A bruise happens when a blow to your body doesn't break the skin but does break blood vessels beneath the skin. Blood leaking from the broken vessels causes redness and swelling. As it heals, your bruise is likely to turn colors like purple, green, and yellow. This is normal. The bruise should fade in 2 or 3 weeks. Factors that make you more likely to bruise Almost everyone bruises now and then. Certain people do bruise more easily than others. You're moreprone to bruising as you get older. That's because blood vessels become more fragile with age. You're also more likely to bruise if you have a clotting disorder such as hemophilia or take medicines that reduce clotting, including aspirin and coumadin. You are also more likely to bruise if you have liver disease and or drink alcohol daily. When to go to the emergency room (ER) Bruises almost always heal on their own without special treatment. But for some people, a bad bruise can be serious. Seek medical care if you: Have a clotting disorder such as hemophilia Have cirrhosis or other serious liver disease Take blood-thinning medicines such as warfarin What to expect in the ER A doctor will examine your bruise and ask about any health conditions you have. In some cases, you may have a test to check how well your blood clots. Other treatment will depend on your needs. Follow-up care Sometimes a bruise gets worse instead of better. It may become larger and more swollen. This can occur when your body donovan off a small pool of blood under the skin (hematoma). In very rare cases, your doctor may need to drain extra blood from the area. Tip: Apply an ice pack or bag of frozen peas to a bruise. Keep a thin cloth between the ice or frozen peas and your skin. The cold can help reduce redness and swelling. [id number] [employer]. [address] [place] [address]. All rights reserved. This information is not intended as a substitute for professional medical care. Always follow yourhealthcare professional's instructions. Additional Information VACCINATE! IT SAVES LIVES! Members of the community who have not yet received the COVID-19 vaccine and would like to receive it can visit one of [facility] vaccine clinics. There are many vaccine clinic locations within the [facility]. For locations and available times, please visit www.gettheshot.coronavirus.[place].gov/. It is important to note that some COVID mobile vaccine clinics are held outdoors and may be canceled in rainy or stormy conditions. To learn more about pediatric vaccinations (ages 5-11), we invite you to visit the [facility] webpage. https://www.[email or web address].org/pages/0590-Kkwgp-Ypjmvgtsnqp-Spjzqmphel-Vkrsf-Vie stions.htmlTo learn more about the COVID-19 vaccine, we invite you to visit the CDC website for a list of frequently asked questions. https://www.cdc.gov/coronavirus/2019-ncov/vaccines/faq.html [facility] Patient Portal Access Instructions: Stay connected with your healthcare team and access your personal medical information anytime with the [facility] Patient Portal. If you would like a full copy of your medical records please contact the [facility] Medical Records Department Thursday through Thursday between 8a.m. and 4:30p.m. Please follow the directions below to access the portal: 1.Access the email account you provided upon registration to the [facility].2.Look for an invitation email from [facility].3.Open the email and access the invitation link: Accept Invitation to [facility]4.Fill in the required boyd to create your account. Sign into [email or web address] with your username and password that you created in the above steps to stay up to date. You can then view a summary of results, a summary of your visits, and the ability to download your summaries to your computer or send the information securely to a physician. Remember that your healthcare information is confidential, so carefully consider who you will allow to register on the [facility] Patient Portal for access to your information. You can also access the [facility] Patient Portal on the [employer] ronaldo. Simply click on Health Records under [employer] and then click on the [employer] logo. HOW TO SAFELY DISPOSE OF PRESCRIPTION MEDICATIONS Please use one of the following methods to safely dispose of your unused medications. 1.Use a drug disposal kit: the drug disposal pouch allows you to safely discard your old and unuseddrugs. Ask your nurse to give you one when you are discharged.2.Visit a local take-back location: Many local pharmacies and police departments have programs that collect old and unwanted prescriptiondrugs. Call your local pharmacy or go to http://bit.ly/5Y7Dj4o to find one close to you.3.Make use of household items: Use cat litter or old coffee grounds to dispose medications if other options arenot available. Mix your drugs with these household products, seal them in an airtight container andthrow it into the garbage. Call [facility]: [phone] to be sure your drugs can be disposed of in this way. Some medicines may require a different approach.4.Never flush your medications down the toilet. IF YOU HAVE BEEN PRESCRIBED AN OPIOIDS FOR PAIN If you have been prescribed an opioid (such as hydrocodone, oxycodone or morphine), it is critical to understand the possible side effects and risks of opioid pain medications. Even when taken as directed, opioids can have several side effects including: Tolerance, meaning you might need to take more of a medication for the same pain relief. Nausea, vomiting and/or constipation. Sleepiness, dizziness, dry mouth, confusion, depression or itching. Physical dependence, meaning you have withdrawal symptoms when a medication is stopped ? this can develop within a few days. KNOW YOUR RESPONSIBILITIES It is important to know exactly how much and how often to take the opioid pain medications you are prescribed. Never take opioids in higher amounts or more often than prescribed. Do not combine opioids with alcohol or other drugs that cause drowsiness, such as benzodiazepines, also known as benzos,including diazepam and alprazolam, muscle relaxants or sleep aids. Never sell or share prescriptionopioids. This is illegal. Store opioids in a secure place and out of reach of others (including children, family, friends and visitors). The last page(s) of this document has been signed and retained as a CHART COPY Signatures Patient Education Materials Bruises (Contusions) Medication Leaflets My discharge plan and instructions have been reviewed and explained to me and I,ALYX MOTLEY understand my current condition and have read and understand these discharge instructions. I have received a written copy of the plan/instructions. If I have questions, I am aware that I should contact my doctor. 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 There is no AC joint widening. There is no significant AC joint spurring. Small accessory ossicle at the proximal lateral humerus. The included thoracic structures are normal. IMPRESSION: No acute fracture or dislocation. I have personally reviewed the images of this examination and agree with the resident's findings and interpretation. Interpreted by: Chauncey Collazo DO Preliminary Report By: Alyx Clarke MD Electronically signed By Chauncey Collazo DO Dictated Date: 10/06/2024 2:51:50 PM Prelim Date: 10/06/2024 3:19:48 PM Sign Date: 10/06/2024 3:19:48 PM Ordering Provider: CLARK STEEN Interpreted by: Chauncey Collazo DO Preliminary Report By: Alyx Clarke MD Electronically signed By Chauncey Collazo DO Dictated Date: 10/06/2024 2:51:50 PM Prelim Date: 10/06/2024 3:19:48 PM Sign Date: 10/06/2024 3:19:48 PM Ordering Provider: CLARK STEEN [facility]04-14-2025 Evaluation note* Diagnosis Onset Date Resolution Status Admit Date Medial epicondylitis, right elbow acute July 18, 2024 10:59am Right wrist pain acute July 182024 10:59am Bone lesion acute November 14, 2024 10:43am Contusion of bone acute November 14, 2024 10:43am Right shoulder pain acute Augus t 2024 10:43am [facility] Work Phone: [phone]) 359-168611-08-2024 NoteHNO ID: [id number] Author: ADAM VANN DO Service: ? Author Type: Physician Type: Progress Notes Filed: 02/15/2024 05:32 Note Text: Referring Provider: No ref. provider found Date: February 12, 2024 Chief Complaint: Established Patient Follow-Up (Murmur) HISTORY OF PRESENT ILLNESS: Alyx Motley is a 68 year old male who presents for Established Patient Follow-Up (Murmur). Patient has a bicuspid aortic valve. Echocardiogram 2021 demonstrated no significant outflow obstruction. ALLERGIES Allergen Reactions Bee Sting PAST MEDICAL HISTORY: PAST MEDICAL HISTORY Diagnosis Date Bicuspid aortic valve Chronic back pain COVID-19 02/2020 Diverticulosis GERD (gastroesophageal reflux disease) H/O echocardiogram 09/06/2021 Ef 50-55%, bicuspid aortic valve , aortic root borderline dilated ( 38 mm) ascending aorta mildly dilated (37 mm), mvp, posterior leaflet History of prostate cancer 2008 Hypothyroidism IBS (irritable bowel syndrome) Mixed hyperlipidemia Murmur MVP (mitral valve prolapse) ROBIN (obstructive sleep apnea) PAST SURGICAL HISTORY Procedure Laterality Date COLONOSCOPY 2017 polypectomy COLONOSCOPY FLX DX W/COLLJ SPEC WHEN PFRMD 02/22/2015 Colonoscopy EGD ([facility]) 10/22/2017 ESOPHAGOGASTRODUODENOSCOPY TRANSORAL DIAGNOSTIC 02/22/2015 EGD PROSTATE BIOPSY PROSTATECTOMY;RADICAL RETROPUBIC 03/26/2009 TONSILLECTOMY PRIMARY/SECONDARY Tonsillectomy FAMILY HISTORY Problem Relation Age of Onset Prostate Cancer Maternal Grandfather Colon Cancer Mother Ischemic Heart Disease Maternal Grandmother SOCIAL HISTORY: Tobacco Use: Never Alcohol Use: No Drug Use: No 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 pitavastatin (LIVALO) 1 mg tablet Take 4 mg by mouth once daily. loratadine (CLARITIN) 10 mg tablet Take 1 tablet by mouth as needed. propranolol (INDERAL) 10 mg tablet Take 10 mg by mouth once daily. (Patient not taking: Reported on 02/12/2024) pantoprazole DR (PROTONIX) 40 mg tablet Take 1 tablet by mouth once daily. (Patient not taking: Reported on 02/12/2024) No current facility-administered medications for this visit. I have personally reviewed the patients past medical history including social, family, surgical, diagnostics, and medications. REVIEW OF SYSTEMS: Review of Systems Constitutional: Negative for chills and fatigue. Respiratory: Negative for chest tightness and shortness of breath. Cardiovascular: Negative for chest pain, palpitations and leg swelling. Neurological: Negative for dizziness, syncope, weakness and light-headedness. Hematological: Does not bruise/bleed easily. Psychiatric/Behavioral: Negative for confusion and hallucinations. Vitals: BP 122/74 (BP Site: Left Arm, BP Position: Sitting) Pulse 63 Ht 172.7 cm (5' 8) Wt 74 kg (163 lb 2.3 oz) BMI 24.81 kg/m? PHYSICAL EXAMINATION: BP 122/74 (BP Site: Left Arm, BP Position: Sitting) Pulse 63 Ht 172.7 cm (5' 8) Wt 74 kg (163 lb 2.3 oz) BMI 24.81 kg/m? Last 3 Encounter BP Readings: Date: BP: 02/11/2023 112/82 05/14/2022 130/88 10/23/2021 110/84 Last 3 Encounter Pulse Readings: Date: Pulse: 02/11/2023 70 05/14/2022 69 10/23/2021 74 Last 3 Encounter Wt Readings: Date: Wt: 02/11/2023 77.6 kg (171 lb) 05/14/2022 75.3 kg (166 lb) 10/23/2021 74.8 kg (165 lb) Physical Exam Vitals reviewed. Constitutional: General: He is not in acute distress. Cardiovascular: Rate and Rhythm: Normal rate and regular rhythm. Pulses: Carotid pulses are 2+ on the right side and 2+ on the left side. Radial pulses are 2+ on the right side and 2+ on the left side. Femoral pulses are 2+ on the right side and 2+ on the left side. Popliteal pulses are 2+ on the right side and 2+ on the left side. Dorsalis pedis pulses are 2+ on the right side and 2+ on the left side. Posterior tibial pulses are 2+ on the right side and 2+ on the left side. Heart sounds: Murmur heard. Systolic murmur is present with a grade of 2/6. Comments: PMI not displaced. 2nd heart sound loud. Pulmonary: Effort: Pulmonary effort is normal. Breath sounds: Normal breath sounds. Abdominal: General: Abdomen is flat. Bowel sounds are normal. Palpations: Abdomen is soft. Tenderness: There is no abdominal tenderness. Musculoskeletal: Right lower leg: No edema. Left lower leg: No edema. Skin: General: Skin is warm. Findings: No rash or wound. Neurological: Mental Status: He is alert and oriented to person, place, and time. Coordination: Coordination is intact. LABS: Glucose (mg/dL) Date Value 03/27/2009 106 Potassium (mmol/L) Date Value 03/27/2009 3.7 Sodium (mmol/L) Date Value 03/27/2009 136 (more content not included)...[id number] of Present illness Narrative* Adam Vann, DO - 02/12/2024 11:04 AM EST Images from the original note were not included. Referring Provider: No ref. provider found Date: February 12, 2024 Chief Complaint: Established Patient Follow-Up (Murmur) HISTORY OF PRESENT ILLNESS: Alyx Motley is a 68 year old male who presents for Established Patient Follow-Up (Murmur). Patient has a bicuspid aortic valve. Echocardiogram 2021 demonstrated no significant outflow obstruction. ALLERGIES Allergen Reactions Bee Sting PAST MEDICAL HISTORY: PAST MEDICAL HISTORY Diagnosis Date Bicuspid aortic valve Chronic back pain COVID-02/2020 Diverticulosis GERD (gastroesophageal reflux disease) H/O echocardiogram 09/06/2021 Ef 50-55%, bicuspid aortic valve , aortic root borderline dilated ( 38 mm) ascending aorta mildly dilated (37 mm), mvp, posterior leaflet History of prostate cancer 2008 Hypothyroidism IBS (irritable bowel syndrome) Mixed hyperlipidemia Murmur MVP (mitral valve prolapse) ROBIN (obstructive sleep apnea) PAST SURGICAL HISTORY Procedure Laterality Date COLONOSCOPY 2018 polypectomy COLONOSCOPY FLX DX W/COLLJ SPEC WHEN PFRMD 02/22/2015 Colonoscopy EGD ([facility]) 10/22/2017 ESOPHAGOGASTRODUODENOSCOPY TRANSORAL DIAGNOSTIC 02/22/2015 EGD PROSTATE BIOPSY PROSTATECTOMY;RADICAL RETROPUBIC 03/26/2009 TONSILLECTOMY PRIMARY/SECONDARY <AGE 13 Tonsillectomy FAMILY HISTORY Problem Relation Age of Onset Prostate Cancer Maternal Grandfather Colon Cancer Mother Ischemic Heart Disease Maternal Grandmother SOCIAL HISTORY: Tobacco Use: Never Alcohol Use: No Drug Use: No 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 pitavastatin (LIVALO) 1 mg tablet Take 4 mg by mouth once daily. loratadine (CLARITIN) 10 mg tablet Take 1 tablet by mouth as needed. propranolol (INDERAL) 10 mg tablet Take 10 mg by mouth once daily. (Patient not taking: Reported on02/12/2024) pantoprazole DR (PROTONIX) 40 mg tablet Take 1 tablet by mouth once daily. (Patient not taking: Reported on 02/12/2024) No current facility-administered medications for this visit. I have personally reviewed the patients past medical history including social, family, surgical, diagnostics, and medications. REVIEW OF SYSTEMS: Review of Systems Constitutional: Negative for chills and fatigue. Respiratory: Negative for chest tightness and shortness of breath. Cardiovascular: Negative for chest pain, palpitations and leg swelling. Neurological: Negative for dizziness, syncope, weakness and light-headedness. Hematological: Does not bruise/bleed easily. Psychiatric/Behavioral: Negative for confusion and hallucinations. Vitals: BP 122/74 (BP Site: Left Arm, BP Position: Sitting) Pulse 63 Ht 172.7 cm (5' 8) Wt 74 kg (163 lb 2.3 oz) BMI 24.81 kg/m PHYSICAL EXAMINATION: BP 122/74 (BP Site: Left Arm, BP Position: Sitting) Pulse 63 Ht 172.7 cm (5' 8) Wt 74 kg (163 lb 2.3 oz) BMI 24.81 kg/m Last 3 Encounter BP Readings: Date: BP: 02/11/2023 112/82 05/14/2022 130/88 10/23/2021 110/84 Last 3 Encounter Pulse Readings: Date: Pulse: 02/11/2023 70 05/14/2022 69 10/23/2021 74 Last 3 Encounter Wt Readings: Date: Wt: 02/11/2023 77.6 kg (171 lb) 05/14/2022 75.3 kg (166 lb) 10/23/2021 74.8 kg (165 lb) Physical Exam Vitals reviewed. Constitutional: General: He is not in acute distress. Cardiovascular: Rate and Rhythm: Normal rate and regular rhythm. Pulses: Carotid pulses are 2+ on the right side and 2+ on the left side. Radial pulses are 2+ on the right side and 2+ on the left side. Femoral pulses are 2+ on the right side and 2+ on the left side. Popliteal pulses are 2+ on the right side and 2+ on the left side. Dorsalis pedis pulses are 2+ on the right side and 2+ on the left side. Posterior tibial pulses are 2+ on the right side and 2+ on the left side. Heart sounds: Murmur heard. Systolic murmur is present with a grade of 2/6. Comments: PMI not displaced. 2nd heart sound loud. Pulmonary: Effort: Pulmonary effort is normal. Breath sounds: Normal breath sounds. Abdominal: General: Abdomen is flat. Bowel sounds are normal. Palpations: Abdomen is soft. Tenderness: There is no abdominal tenderness. Musculoskeletal: Right lower leg: No edema. Left lower leg: No edema. Skin: General: Skin is warm. Findings: No rash or wound. Neurological: Mental Status: He is alert and oriented to person, place, and time. Coordination: Coordination is intact. LABS: Glucose (mg/dL) Date Value 03/27/2009 106 Potassium (mmol/L) Date Value 03/27/2009 3.7 Sodium (mmol/L) Date Value 03/27/2009 136 Chloride (mmol/L) Date Value 03/27/2009 106 CO2 (mmol/L) Date Value 03/27/2009 23 Creatinine (mg/dL) Date Value 03/27/2009 0.92 BUN (mg/dL) Date Value 03/27/2009 10 Anion Gap (mmol/L) Date Value 03/27/2009 7 Calcium (mg/dL) Date Value 03/27/2009 7.4 Protein, Total (g/dL) Date Value 03/23/2009 6.6 Albumin (g/dL) Date Value 03/23/2009 4.5 Bilirubin, Total (mg/dL) Date Value 03/23/2009 0.4 Alkaline Phosphatase (U/L) Date Value 03/23/2009 93 AST (U/L) Date Value 03/23/2009 27 ALT (U/L) Date Value 03/23/2009 41 Hemoglobin (g/dL) Date Value 03/27/2009 8.3 Hematocrit (%) Date Value 03/27/2009 24.5 WBC (k/uL) Date Value 03/27/2009 6.85 Cholesterol, Total (mg/dL) Date Value 01/13/2012 234 HDL Cholesterol (mg/dL) Date Value 01/13/2012 45 LDL Cholesterol (mg/dL) Date Value 01/13/2012 154 Triglyceride (mg/dL) Date Value 01/13/2012 176 EKG: ASSESSMENT/PLAN: 1. Patient has bicuspid aortic valve. Systolic murmur noted. Second heart sound still loud. No diastolic murmur appreciated at this time valve seems to be stable EKG: Today's EKG demonstrates sinus rhythm. There is no QT prolongation. 3. Mixed hyperlipidemia - ICD9: 272.2, ICD10: E78.2 Patient is currently taking Pitavastatin every day. Patients last BW was 05/22/2021 and the LDL was 184. 6. H/O echocardiogram - ICD9: V15.89, ICD10: Z92.89 Echo done on 09/06/2021 showed Ef 50-55%, bicuspid aortic valve , aortic root borderline dilated ( 38mm) ascending aorta mildly dilated (37 mm), mvp, posterior leaflet 7. Non-smoker - ICD9: V49.89, ICD10: Z78.9 Patient is a non-smoker IMarcela MA , scribing for Dr. Adam Vann, was present in the room during the examination Follow up in: [address] Vann Prior to entering the room, I reviewed the last progress note including the diagnosis and plan of action. When available, I then reviewed the last heart catheterization, stress test, echocardiogram and EKG. I proceeded to review the medial therapy and any side effects the patient may have had in the past. I was able to look at the last several EKGs. A new EKG was performed today and an interetation was performed. I reviewed its interpretation with the family and compared it to the previous EKGsthat we have in the medical records. Changes were described to the patient. In a pictorial format; I described the AR and QRS intervals. This was to show the effects of antiarrhythmic therapy on the e lectrical system. I was able to look at the past several EKG's. A new EKG was performed today and interpretation was noted. I reviewed this interpretation with the patient, and the family when available, and compared it to the previous EKG's that we have in the medical record. Since my office visit was carried out with a scribe, while in the exam room I was able to devote one hundred percent of my time in [id number] conversation with the patient. I answered all the questions and explained the diagnosis of hyperlipidemia and bicuspid aortic valve. Greater that 51% of my time was spent with [id number] conversation with the patient. I have discussed the recommended treatment, alternative therapies and other options in detail. I've discussed the best benefit and side effects of these recommended treatments. I've attempted to answer all the questions to the patient's satisfaction and understanding. With approval, we would recommend an pursuethe current therapy such as no change with repeat echocardiogram next year. After leaving the exam room, I went back into the patient's chart and coordinated care with my nurse ordering the proper testing and medicinal changes. Letter was performed with voice recognition algorithms and sent to the referring team. The chart was completed. Including the pre-exam, exam and post- exam, the total time spent in the patient's management was greater than 15 minutes I, Dr. Adam Vann, have reviewed and agree with the information in the medical record. Adam Vann DO [facility] Discharge instructions Patient Education 02/25/2023 20:05:40 Fracture, Foot Foot Fracture You have a broken bone (fracture) in your foot. This will cause pain, swelling, and often bruising.It will usually take about 4 to 8 weeks to heal. A foot fracture may be treated with a special shoe, splint, cast, or boot. Home care Follow these guidelines when caring for yourself at home: You may be given a splint, cast, shoe, or boot to keep the injured area from moving. Unless you were told otherwise, use crutches or a walker. Don t put weight on the injured foot until your health care provider says you can do so. (You can rent crutches and a walker at many pharmacies and surgicalca orthopedic supply stores.) Don t put weight on a splint, or it will break. Keep your leg elevated to reduce pain and swelling. When sleeping, put a pillow under the injured leg. When sitting, support the injured leg so it is above your waist. This is very important during the first 2 days (48 hours). Put an ice pack on the injured area. Do this for 20 minutes every 1 to 2 hours the first day for pain relief. You can make an ice pack by wrapping a plastic bag of ice cubes in a thin towel. As the ice melts, be careful that the splint, cast, boot, or shoe doesn t get wet. You can place the ice pack directly over the splint or cast. Unless told otherwise, you can open the boot or shoe to apply the ice pack. Continue using the ice pack 3 to 4 times a day for the next 2 days. Then use the ice pack as needed to ease pain and swelling. Keep the splint, cast, boot, or shoe dry. When bathing, protect it with a large plastic bag, rubber-banded at the top end. If a fiberglass splint or cast or boot gets wet, you can dry it with a chair lift operator. Unless told otherwise, you can take off the boot or shoe to bathe. You may use acetaminophen or ibuprofen to control pain, unless another pain medicine was prescribed. If you have chronic liver or kidney disease, talk with your healthcare provider before using thesemedicines. Also talk with your provider if you ve had a stomach ulcer or gastrointestinal bleeding. Don t put creams or objects under the cast if you have itching. Follow-up care Follow up with your healthcare provider, or as advised. This is to make sure the bone is healing the way it should. If you were given a splint, it may be changed to a cast or boot at your follow-up visit. X-rays may be taken. You will be told of any new findings that may affect your care. When to seek medical advice Call your healthcare provider right away if any of these occur: The cast or splint cracks The plaster cast or splint becomes wet or soft The fiberglass cast or splint stays wet for more than 24 hours Bad odor from the cast or wound fluid stains the cast Tightness or pain under the cast or splint gets worse Toes become swollen, cold, blue, numb, or tingly You can t move your toes Skin around cast or splint becomes red Fever of 100.4 F (38 C) or higher, or as directed by your healthcare provider [id number] [employer]. [address] [place] [address]. All rights reserved. This information is not intended as a substitute for professional medical care. Always follow yourhealthcare professional's instructions. Follow Up Care 02/25/2023 18:47:27 With:LIAN HEARD MD Address: [address] [facility] [address] [place], [place] [address]- [phone] When:5 to 7 days With:LIAN ANTHONY MD Address: [address] [place] [address]- When:2-4 days [facility] 11-22-2023 Note Discharge Instructions Thank you for allowing [facility] to assist you with your healthcare needs. The following is importantdischarge information regarding your hospital visit. Diagnosis from Today's Visit Ankle injury - Minor What to Do Next Instructions from Your Care Team No qualifying data available. Post Acute Orders No qualifying data available. You Need to Schedule the Following Appointments Follow Up with LIAN HEARD MD When Within 5 to 7 days Where: [address] [place] [address] [phone] Follow Up with LIAN ANTHONY MD When Within 2-4 days Where: [address] [place] [address]- Allergies Bactrim (Agitated) Bee Stings Dust (Rhinitis) cyclobenzaprine (Flushed complexion) dicyclomine (Dizziness) Medications Please ask your primary doctor or pharmacist before taking any other medication not listed, including over the counter drugs, herbal medications, vitamins and or supplements as they may interact withyour home medications. What How Much When Why Instructions Last Dose Unchanged calcium-vitamin D (Calcium 600+D oral tablet) 1 tab(s) by mouth Every day Medicare annual wellness visit, subsequent Right hip pain Duration: 90 Days Unchanged diclofenac topical (Voltaren 1% topical gel) 2 gram(s) Topical Once a day Duration: 10 Days Unchanged pancrelipase (Creon 36,000 units oral delayed release capsule) 1 cap by mouth Three (3) times a day Unchanged pantoprazole (pantoprazole 40 mg oral enteric coated tablet) 1 tab(s) by mouth Once a day GERD without esophagitis Hiatal hernia Unchanged pitavastatin (Livalo 4 mg oral tablet) 1 tab(s) by mouth Every day Unchanged propranolol (propranolol 10 mg oral tablet) 1 tab(s) by mouth Once a day Systolic murmur Mitral valve prolapse Please take this list to your next doctor s visit. Bring all medications you take, including over the counter medications, herbals and other supplements with you to your doctor s visit. Patients and families are reminded to discard old lists and to update any records with all medication providers or retail pharmacies. Education Materials Foot Fracture You have a broken bone (fracture) in your foot. This will cause pain, swelling, and often bruising.It will usually take about 4 to 8 weeks to heal. A foot fracture may be treated with a special shoe, splint, cast, or boot. Home care Follow these guidelines when caring for yourself at home: You may be given a splint, cast, shoe, or boot to keep the injured area from moving. Unless you were told otherwise, use crutches or a walker. Don t put weight on the injured foot until your health care provider says you can do so. (You can rent crutches and a walker at many pharmacies and surgicalor orthopedic supply stores.) Don t put weight on a splint, or it will break. Keep your leg elevated to reduce pain and swelling. When sleeping, put a pillow under the injured leg. When sitting, support the injured leg so it is above your waist. This is very important during the first 2 days (48 hours). Put an ice pack on the injured area. Do this for 20 minutes every 1 to 2 hours the first day for pain relief. You can make an ice pack by wrapping a plastic bag of ice cubes in a thin towel. As the ice melts, be careful that the splint, cast, boot, or shoe doesn t get wet. You can place the ice pack directly over the splint or cast. Unless told otherwise, you can open the boot or shoe to apply the ice pack. Continue using the ice pack 3 to 4 times a day for the next 2 days. Then use the ice pack as needed to ease pain and swelling. Keep the splint, cast, boot, or shoe dry. When bathing, protect it with a large plastic bag, rubber-banded at the top end. If a fiberglass splint or cast or boot gets wet, you can dry it with a chair lift operator. Unless told otherwise, you can take off the boot or shoe to bathe. You may use acetaminophen or ibuprofen to control pain, unless another pain medicine was prescribed. If you have chronic liver or kidney disease, talk with your healthcare provider before using thesemedicines. Also talk with your provider if you ve had a stomach ulcer or gastrointestinal bleeding. Don t put creams or objects under the cast if you have itching. Follow-up care Follow up with your healthcare provider, or as advised. This is to make sure the bone is healing the way it should. If you were given a splint, it may be changed to a cast or boot at your follow-up visit. X-rays may be taken. You will be told of any new findings that may affect your care. When to seek medical advice Call your healthcare provider right away if any of these occur: The cast or splint cracks The plaster cast or splint becomes wet or soft The fiberglass cast or splint stays wet for more than 24 hours Bad odor from the cast or wound fluid stains the cast Tightness or pain under the cast or splint gets worse Toes become swollen, cold, blue, numb, or tingly You can t move your toes Skin around cast or splint becomes red Fever of 100.4 F (38 C) or higher, or as directed by your healthcare provider [id number] [employer]. [address] [place] [address], [place] [address]. All rights reserved. This information is not intended as a substitute for professional medical care. Always follow yourhealthcare professional's instructions. Additional Information VACCINATE! IT SAVES LIVES! Members of the community who have not yet received the COVID-19 vaccine and would like to receive it can visit one of [facility] vaccine clinics. There are many vaccine clinic locations within the [facility]. For locations and available times, please visit www.gettheshot.coronavirus.[place].gov/. It is important to note that some COVID mobile vaccine clinics are held outdoors and may be canceled in rainy or stormy conditions. To learn more about pediatric vaccinations (ages 5-11), we invite you to visit the [facility] webpage. https://www.[facility].org/pages/0685-Elmzr-Xfqemlkzhrw-Piulkahqdd-Fazwp-Ewc stions.htmlTo learn more about the COVID-19 vaccine, we invite you to visit the CDC website for a list of frequently asked questions. https://www.cdc.gov/coronavirus/2019-ncov/vaccines/faq.html [facility] Patient Portal Access Instructions: Stay connected with your healthcare team and access your personal medical information anytime with the [facility] Patient Portal. If you would like a full copy of your medical records please contact the [facility] Medical Records Department Thursday through Thursday between 8a.m. and 4:30p.m. Please follow the directions below to access the portal: 1.Access the email account you provided upon registration to the hospital.2.Look for an invitation email from [facility].3.Open the email and access the invitation link: Accept Invitation to [facility]4.Fill in the required boyd to create your account. Sign into [email or web address] with your username and password that you created in the above steps to stay up to date. You can then view a summary of results, a summary of your visits, and the ability to download your summaries to your computer or send the information securely to a physician. Remember that your healthcare information is confidential, so carefully consider who you will allow to register on the [facility] Patient Portal for access to your information. You can also access the [facility] Patient Portal on the [employer] ronaldo. Simply click on Health Records under [employer] and then click on the [facility] logo. HOW TO SAFELY DISPOSE OF PRESCRIPTION MEDICATIONS Please use one of the following methods to safely dispose of your unused medications. 1.Use a drug disposal kit: the drug disposal pouch allows you to safely discard your old and unuseddrugs. Ask your nurse to give you one when you are discharged.2.Visit a local take-back location: Many local pharmacies and police departments have programs that collect old and unwanted prescriptiondrugs. Call your local pharmacy or go to http://[employer]/1U6Op4m to find one close to you.3.Make use of household items: Use cat litter or old coffee grounds to dispose medications if other options arenot available. Mix your drugs with these household products, seal them in an airtight container andthrow it into the garbage. Call [facility]: [phone] to be sure your drugs can be disposed of in this way. Some medicines may require a different approach.4.Never flush your medications down the toilet. IF YOU HAVE BEEN PRESCRIBED AN OPIOIDS FOR PAIN If you have been prescribed an opioid (such as hydrocodone, oxycodone or morphine), it is critical to understand the possible side effects and risks of opioid pain medications. Even when taken as directed, opioids can have several side effects including: Tolerance, meaning you might need to take more of a medication for the same pain relief. Nausea, vomiting and/or constipation. Sleepiness, dizziness, dry mouth, confusion, depression or itching. Physical dependence, meaning you have withdrawal symptoms when a medication is stopped ? this can develop within a few days. KNOW YOUR RESPONSIBILITIES It is important to know exactly how much and how often to take the opioid pain medications you are prescribed. Never take opioids in higher amounts or more often than prescribed. Do not combine opioids with alcohol or other drugs that cause drowsiness, such as benzodiazepines, also known as benzos,including diazepam and alprazolam, muscle relaxants or sleep aids. Never sell or share prescriptionopioids. This is illegal. Store opioids in a secure place and out of reach of others (including children, family, friends and visitors). The last page(s) of this document has been signed and retained as a CHART COPY Signatures Patient Education Materials Fracture, Foot Medication Leaflets My discharge plan and instructions have been reviewed and explained to me and I,ALYX MOTLEY understand my current condition and have read and understand these discharge instructions. I have received a written copy of the plan/instructions. If I have questions, I am aware that I should contact my doctor. 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 HISTORY: ORDERING SYSTEM PROVIDED HISTORY: Reason for Exam: pain FINDINGS: There is a acute mildly displaced small avulsion fracture at the dorsal aspect of the talar neck, which could also indicate underlying ligamentous injury. No other fracture or dislocation. No ankle joint effusion. No significant degenerative change. IMPRESSION: Small acute mildly displaced avulsion fracture of the dorsal talar neck, which could also indicate underlying ligamentous injury. I have personally reviewed the images of this examination and agree with the resident's findings and interpretation. Interpreted by: Alyx Dahl MD Preliminary Report By: Marycruz Andrews Electronically signed By Alyx Dahl MD Dictated Date: 02/25/2023 7:33:28 PM Prelim Date: 02/25/2023 7:43:57 PM Sign Date: 02/25/2023 8:31:43 PM Ordering Provider: [facility]11-08-2023 History of Present illness Narrative* Adam Vann, - 02/11/2023 12:54 PM EST Images from the original note were not included. Referring Provider: No ref. provider found Date: February 11, 2023 Chief Complaint: Established Patient Follow-Up (Palpitations, murmur) HISTORY OF PRESENT ILLNESS: Alyx Motley is a 67 year old male who presents for Established Patient Follow-Up (Palpitations, murmur). ALLERGIES Allergen Reactions Bee Sting PAST MEDICAL HISTORY: PAST MEDICAL HISTORY Diagnosis Date Bicuspid aortic valve Chronic back pain COVID-19 02/2020 Diverticulosis GERD (gastroesophageal reflux disease) H/O echocardiogram 09/06/2021 Ef 50-55%, bicuspid aortic valve , aortic root borderline dilated ( 38 mm) ascending aorta mildly dilated (37 mm), mvp, posterior leaflet History of prostate cancer 2008 Hypothyroidism IBS (irritable bowel syndrome) Mixed hyperlipidemia Murmur MVP (mitral valve prolapse) ROBIN (obstructive sleep apnea) PAST SURGICAL HISTORY Procedure Laterality Date COLONOSCOPY 2018 polypectomy COLONOSCOPY FLX DX W/COLLJ SPEC WHEN PFRMD 02/22/2015 Colonoscopy EGD ([facility]) 10/22/2017 ESOPHAGOGASTRODUODENOSCOPY TRANSORAL DIAGNOSTIC 02/22/2015 EGD PROSTATE BIOPSY PROSTATECTOMY;RADICAL RETROPUBIC 03/26/2009 TONSILLECTOMY PRIMARY/SECONDARY <AGE 12 Tonsillectomy FAMILY HISTORY Problem Relation Age of Onset Prostate Cancer Maternal Grandfather Colon Cancer Mother Ischemic Heart Disease Maternal Grandmother SOCIAL HISTORY: Tobacco Use: Never Alcohol Use: No Drug Use: No 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 pitavastatin (LIVALO) 1 mg tablet Take 4 mg by mouth once daily. propranolol (INDERAL) 10 mg tablet Take 10 mg by mouth once daily. loratadine (CLARITIN) 10 mg tablet Take 1 tablet by mouth as needed. pantoprazole DR (PROTONIX) 40 mg tablet Take 1 tablet by mouth once daily. No current facility-administered medications for this visit. I have personally reviewed the patients past medical history including social, family, surgical, diagnostics, and medications. REVIEW OF SYSTEMS: Review of Systems Constitutional: Negative for chills and fatigue. Respiratory: Negative for chest tightness and shortness of breath. Cardiovascular: Negative for chest pain, palpitations and leg swelling. Neurological: Negative for dizziness, syncope, weakness and light-headedness. Hematological: Does not bruise/bleed easily. Psychiatric/Behavioral: Negative for confusion and hallucinations. Vitals: BP 112/82 (BP Site: Left Arm, BP Position: Sitting) Pulse 70 Ht 172.7 cm (5' 8) Wt 77.6 kg (171 lb) BMI 26.00 kg/m PHYSICAL EXAMINATION: BP 112/82 (BP Site: Left Arm, BP Position: Sitting) Pulse 70 Ht 172.7 cm (5' 8) Wt 77.6 kg (171 lb) BMI 26.00 kg/m Last 3 Encounter BP Readings: Date: BP: 05/14/2022 130/88 10/23/2021 110/84 12/29/2018 157/90 Last 3 Encounter Pulse Readings: Date: Pulse: 05/14/2022 69 10/23/2021 74 12/29/2018 93 Last 3 Encounter Wt Readings: Date: Wt: 05/14/2022 75.3 kg (166 lb) 10/23/2021 74.8 kg (165 lb) 12/29/2018 74.7 kg (164 lb 11.2 oz) Physical Exam Vitals reviewed. Constitutional: General: He is not in acute distress. Cardiovascular: Rate and Rhythm: Normal rate and regular rhythm. Pulses: Carotid pulses are 2+ on the right side and 2+ on the left side. Radial pulses are 2+ on the right side and 2+ on the left side. Femoral pulses are 2+ on the right side and 2+ on the left side. Popliteal pulses are 2+ on the right side and 2+ on the left side. Dorsalis pedis pulses are 2+ on the right side and 2+ on the left side. Posterior tibial pulses are 2+ on the right side and 2+ on the left side. Heart sounds: Murmur heard. Systolic murmur is present with a grade of 2/6. Comments: PMI not displaced. 2nd heart sound loud. Pulmonary: Effort: Pulmonary effort is normal. Breath sounds: Normal breath sounds. Abdominal: General: Abdomen is flat. Bowel sounds are normal. Palpations: Abdomen is soft. Tenderness: There is no abdominal tenderness. Musculoskeletal: Right lower leg: No edema. Left lower leg: No edema. Skin: General: Skin is warm. Findings: No rash or wound. Neurological: Mental Status: He is alert and oriented to person, place, and time. Coordination: Coordination is intact. LABS: Glucose (mg/dL) Date Value 03/27/2009 106 Potassium (mmol/L) Date Value 03/27/2009 3.7 Sodium (mmol/L) Date Value 03/27/2009 136 Chloride (mmol/L) Date Value 03/27/2009 106 CO2 (mmol/L) Date Value 03/27/2009 23 Creatinine (mg/dL) Date Value 03/27/2009 0.92 BUN (mg/dL) Date Value 03/27/2009 10 Anion Gap (mmol/L) Date Value 03/27/2009 7 Calcium (mg/dL) Date Value 03/27/2009 7.4 Protein, Total (g/dL) Date Value 03/23/2009 6.6 Albumin (g/dL) Date Value 03/23/2009 4.5 Bilirubin, Total (mg/dL) Date Value 03/23/2009 0.4 Alkaline Phosphatase (U/L) Date Value 03/23/2009 93 AST (U/L) Date Value 03/23/2009 27 ALT (U/L) Date Value 03/23/2009 41 Hemoglobin (g/dL) Date Value 03/27/2009 8.3 Hematocrit (%) Date Value 03/27/2009 24.5 WBC (k/uL) Date Value 03/27/2009 6.85 Cholesterol, Total (mg/dL) Date Value 01/13/2012 234 HDL Cholesterol (mg/dL) Date Value 01/13/2012 45 LDL Cholesterol (mg/dL) Date Value 01/13/2012 154 Triglyceride (mg/dL) Date Value 01/13/2012 176 EKG: ASSESSMENT/PLAN: 1. Mixed hyperlipidemia - ICD9: 272.2, ICD10: E78.2 (primary diagnosis) Patient is currently taking Livalo every day. Patients last BW was 05/16/2022 and the LDL was 184. This is markedly elevated. Patient is on statin therapy. Did discuss Repatha therapy. I do not think we get Repatha therapy approved for somebody who has not had a heart event yet 2. ROBIN (obstructive sleep apnea) - ICD9: 327.23, ICD10: G47.33 3. H/O echocardiogram - ICD9: V15.89, ICD10: Z92.89 Echo done on 09/06/2021 showed Ef 50-55%, bicuspid aortic valve , aortic root borderline dilated ( 38 mm) ascending aorta mildly dilated (37 mm), mvp, posterior leaflet' On examination there is no diastolic murmur. Opening snap is appreciated. No heave no gallop. Remains asymptomatic. Do not feel at this time surgical approach is warranted as class I activity 4. Non-smoker - ICD9: V49.89, ICD10: Z78.9 Patient is a non-smoker It was explained to the patient that he is taking the Propanolol to help with the palpitations. He states that he has not been having any issues with palpitations. I, Marcela Woodall MA , scribing for Dr. Adam Vann, was present in the room during the examination Follow up in: [address] Vann Prior to entering the room, I reviewed the last progress note including the diagnosis and plan of action. When available, I then reviewed the last heart catheterization, stress test, echocardiogram and EKG. I proceeded to review the medial therapy and any side effects the patient may have had in the past. I was able to look at the last several EKGs. A new EKG was performed today and an interetation was performed. I reviewed its interpretation with the family and compared it to the previous EKGsthat we have in the medical records. Changes were described to the patient. In a pictorial format; I described the AR and QRS intervals. This was to show the effects of antiarrhythmic therapy on the e lectrical system. I was able to look at the past several EKG's. A new EKG was performed today and interpretation was noted. I reviewed this interpretation with the patient, and the family when available, and compared it to the previous EKG's that we have in the medical record. Since my office visit was carried out with a scribe, while in the exam room I was able to devote one hundred percent of my time in [id number] conversation with the patient. I answered all the questions and explained the diagnosis of bicuspid aortic valve and hyperlipidemia. Greater that 51% of my time was spent with [id number] conversation with the patient. I have discussed the recommended treatment, alternative therapies and other options in detail. I've discussed the best benefit and side effects of these recommended treatments. I've attempted to answer all the questions to the patient's satisfaction and understanding. With approval, we would recommend an pursuethe current therapy such as diet restrictions consider Livalo. Bicuspid valve no changes. After leaving the exam room, I went back into the patient's chart and coordinated care with my nurse ordering the proper testing and medicinal changes. Letter was performed with voice recognition algorithms and sent to the referring team. The chart was completed. Including the pre-exam, exam and post- exam, the total time spent in the patient's management was greater than 15 minutes I, Dr. Adam Vann, have reviewed and agree with the information in the medical record. [facility] DO [facility] Note ORIGINAL EXAMINATION: 2 XRAY VIEWS OF THE RIGHT HIP 10/08/2022 10:09 am COMPARISON: 10/06/2018 HISTORY: ORDERING SYSTEM PROVIDED HISTORY: Reason for Exam: pain of the right hip FINDINGS: No acute fracture or dislocation is identified. Mild joint space loss and spurring seen. Surgical clips noted in the pelvis. Lucency projecting through the acetabulum on the lateral image is smoothly marginated and believed to be artifactual. IMPRESSION: No acute fracture or dislocation. Mild degenerative changes in the right hip Interpreted by: Chauncey Gamino MD Preliminary Report By: Chauncey Gamino MD Electronically signed By Chauncey Gamino MD Dictated Date: 10/08/2022 11:23:14 AM Prelim Date: 10/08/2022 11:24:41 AM Sign Date: 10/08/2022 11:24:41 AM Ordering Provider: [facility]07-05-2023 Note ORIGINAL EXAMINATION: 2 XRAY VIEWS OF THE RIGHT HIP 10/08/2022 10:09 am COMPARISON: 10/06/2018 HISTORY: ORDERING SYSTEM PROVIDED HISTORY: Reason for Exam: pain of the right hip FINDINGS: No acute fracture or dislocation is identified. Mild joint space loss and spurring seen. Surgical clips noted in the pelvis. Lucency projecting through the acetabulum on the lateral image is smoothly marginated and believed to be artifactual. IMPRESSION: No acute fracture or dislocation. Mild degenerative changes in the right hip Interpreted by: Chauncey Gamino MD Preliminary Report By: Chauncey Gamino MD Electronically signed By Chauncey Gamino MD Dictated Date: 10/08/2022 11:23:14 AM Prelim Date: 10/08/2022 11:24:41 AM Sign Date: 10/08/2022 11:24:41 AM Ordering Provider: [facility]02-08-2023 NoteHNO ID: [id number] Author: Adam Vann DO Service: ? Author Type: Physician Type: Progress Notes Filed: 2022 5:06 AM Note Text: Referring Provider: Adam Vann DO Date: May 14, 2022 Chief Complaint: Established Patient Follow-Up (Palpitations) HISTORY OF PRESENT ILLNESS: Alyx Motley is a 66 year old male who presents for Established Patient Follow-Up (Palpitations). ALLERGIES Allergen Reactions Bee Sting PAST MEDICAL HISTORY: PAST MEDICAL HISTORY Diagnosis Date Bicuspid aortic valve Chronic back pain COVID-19 02/2020 Diverticulosis GERD (gastroesophageal reflux disease) H/O echocardiogram 09/06/2021 Ef 50-55%, bicuspid aortic valve , aortic root borderline dilated ( 38 mm) ascending aorta mildly dilated (37 mm), mvp, posterior leaflet History of prostate cancer 2008 Hypothyroidism IBS (irritable bowel syndrome) Mixed hyperlipidemia Murmur MVP (mitral valve prolapse) ROBIN (obstructive sleep apnea) PAST SURGICAL HISTORY Procedure Laterality Date COLONOSCOPY 2018 polypectomy COLONOSCOPY FLX DX W/COLLJ SPEC WHEN PFRMD 02/22/2015 Colonoscopy EGD ([facility]) 10/22/2017 ESOPHAGOGASTRODUODENOSCOPY TRANSORAL DIAGNOSTIC 02/22/2015 EGD PROSTATE BIOPSY PROSTATECTOMY;RADICAL RETROPUBIC 03/26/2009 TONSILLECTOMY PRIMARY/SECONDARY Tonsillectomy FAMILY HISTORY Problem Relation Age of Onset Prostate Cancer Maternal Grandfather Colon Cancer Mother Ischemic Heart Disease Maternal Grandmother SOCIAL HISTORY: Tobacco Use: Never Alcohol Use: No Drug Use: No 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 propranolol (INDERAL) 10 mg tablet Take 10 mg by mouth once daily. loratadine (CLARITIN) 10 mg tablet Take 1 tablet by mouth as needed. pantoprazole DR (PROTONIX) 40 mg tablet Take 1 tablet by mouth once daily. No current facility-administered medications for this visit. I have personally reviewed the patients past medical history including social, family, surgical, diagnostics, and medications. REVIEW OF SYSTEMS: Review of Systems Constitutional: Negative for chills and fatigue. Respiratory: Negative for chest tightness and shortness of breath. Cardiovascular: Positive for palpitations. Negative for chest pain and leg swelling. Neurological: Negative for dizziness, syncope, weakness and light-headedness. Hematological: Does not bruise/bleed easily. Psychiatric/Behavioral: Negative for confusion and hallucinations. Vitals: BP 130/88 (BP Site: Left Arm, BP Position: Sitting) Pulse 69 Ht 172.7 cm (5' 8) Wt 75.3 kg (166 lb) BMI 25.24 kg/m? PHYSICAL EXAMINATION: BP 130/88 (BP Site: Left Arm, BP Position: Sitting) Pulse 69 Ht 172.7 cm (5' 8) Wt 75.3 kg (166 lb) BMI 25.24 kg/m? Last 3 Encounter BP Readings: Date: BP: 10/23/2021 110/84 12/29/2018 157/90 03/12/2015 118/76 Last 3 Encounter Pulse Readings: Date: Pulse: 10/23/2021 74 12/29/2018 93 03/12/2015 87 Last 3 Encounter Wt Readings: Date: Wt: 10/23/2021 74.8 kg (165 lb) 12/29/2018 74.7 kg (164 lb 11.2 oz) 03/12/2015 75.7 kg (166 lb 12.8 oz) Physical Exam Vitals reviewed. Constitutional: General: He is not in acute distress. Cardiovascular: Rate and Rhythm: Normal rate and regular rhythm. Pulses: Carotid pulses are 2+ on the right side and 2+ on the left side. Radial pulses are 2+ on the right side and 2+ on the left side. Femoral pulses are 2+ on the right side and 2+ on the left side. Popliteal pulses are 2+ on the right side and 2+ on the left side. Dorsalis pedis pulses are 2+ on the right side and 2+ on the left side. Posterior tibial pulses are 2+ on the right side and 2+ on the left side. Heart sounds: Murmur heard. Systolic murmur is present with a grade of 2/6. Comments: PMI not displaced. 2nd heart sound loud. Pulmonary: Effort: Pulmonary effort is normal. Breath sounds: Normal breath sounds. Abdominal: General: Abdomen is flat. Bowel sounds are normal. Palpations: Abdomen is soft. Tenderness: There is no abdominal tenderness. Musculoskeletal: Right lower leg: No edema. Left lower leg: No edema. Skin: General: Skin is warm. Findings: No rash or wound. Neurological: Mental Status: He is alert and oriented to person, place, and time. Coordination: Coordination is intact. LABS: Glucose (mg/dL) Date Value 03/27/2009 106 Potassium (mmol/L) Date Value 03/27/2009 3.7 Sodium (mmol/L) Date Value 03/27/2009 136 Chloride (mmol/L) Date Value 03/27/2009 106 CO2 (mmol/L) Date Value 03/27/2009 23 Creatinine (mg/dL) Date Value 03/27/2009 0.92 BUN (mg/dL) Date Value 03/27/2009 10 Anion Gap (mmol/L) Date Value 03/27/2009 7 Aramis (more content not included)...[facility]02-08-2023 History of Present illness Narrative* Adam Vann DO - 05/14/2022 3:02 PM EST Referring Provider: Adam Vann DO Date: May 14, 2022 Chief Complaint: Established Patient Follow-Up (Palpitations) HISTORY OF PRESENT ILLNESS: Alyx Motley is a 66 year old male who presents for Established Patient Follow-Up (Palpitations). ALLERGIES Allergen Reactions Bee Sting PAST MEDICAL HISTORY: PAST MEDICAL HISTORY Diagnosis Date Bicuspid aortic valve Chronic back pain COVID-19 02/2020 Diverticulosis GERD (gastroesophageal reflux disease) H/O echocardiogram 09/06/2021 Ef 50-55%, bicuspid aortic valve , aortic root borderline dilated ( 38 mm) ascending aorta mildly dilated (37 mm), mvp, posterior leaflet History of prostate cancer 2008 Hypothyroidism IBS (irritable bowel syndrome) Mixed hyperlipidemia Murmur MVP (mitral valve prolapse) ROBIN (obstructive sleep apnea) PAST SURGICAL HISTORY Procedure Laterality Date COLONOSCOPY 2018 polypectomy COLONOSCOPY FLX DX W/COLLJ SPEC WHEN PFRMD 02/22/2015 Colonoscopy EGD ([facility]) 10/22/2017 ESOPHAGOGASTRODUODENOSCOPY TRANSORAL DIAGNOSTIC 02/22/2015 EGD PROSTATE BIOPSY PROSTATECTOMY;RADICAL RETROPUBIC 03/26/2009 TONSILLECTOMY PRIMARY/SECONDARY <AGE 12 Tonsillectomy FAMILY HISTORY Problem Relation Age of Onset Prostate Cancer Maternal Grandfather Colon Cancer Mother Ischemic Heart Disease Maternal Grandmother SOCIAL HISTORY: Tobacco Use: Never Alcohol Use: No Drug Use: No 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 propranolol (INDERAL) 10 mg tablet Take 10 mg by mouth once daily. loratadine (CLARITIN) 10 mg tablet Take 1 tablet by mouth as needed. pantoprazole DR (PROTONIX) 40 mg tablet Take 1 tablet by mouth once daily. No current facility-administered medications for this visit. I have personally reviewed the patients past medical history including social, family, surgical, diagnostics, and medications. REVIEW OF SYSTEMS: Review of Systems Constitutional: Negative for chills and fatigue. Respiratory: Negative for chest tightness and shortness of breath. Cardiovascular: Positive for palpitations. Negative for chest pain and leg swelling. Neurological: Negative for dizziness, syncope, weakness and light-headedness. Hematological: Does not bruise/bleed easily. Psychiatric/Behavioral: Negative for confusion and hallucinations. Vitals: BP 130/88 (BP Site: Left Arm, BP Position: Sitting) Pulse 69 Ht 172.7 cm (5' 8) Wt 75.3 kg (166 lb) BMI 25.24 kg/m PHYSICAL EXAMINATION: BP 130/88 (BP Site: Left Arm, BP Position: Sitting) Pulse 69 Ht 172.7 cm (5' 8) Wt 75.3 kg (166 lb) BMI 25.24 kg/m Last 3 Encounter BP Readings: Date: BP: 10/23/2021 110/84 12/29/2018 157/90 03/12/2015 118/76 Last 3 Encounter Pulse Readings: Date: Pulse: 10/23/2021 74 12/29/2018 93 03/12/2015 87 Last 3 Encounter Wt Readings: Date: Wt: 10/23/2021 74.8 kg (165 lb) 12/29/2018 74.7 kg (164 lb 11.2 oz) 03/12/2015 75.7 kg (166 lb 12.8 oz) Physical Exam Vitals reviewed. Constitutional: General: He is not in acute distress. Cardiovascular: Rate and Rhythm: Normal rate and regular rhythm. Pulses: Carotid pulses are 2+ on the right side and 2+ on the left side. Radial pulses are 2+ on the right side and 2+ on the left side. Femoral pulses are 2+ on the right side and 2+ on the left side. Popliteal pulses are 2+ on the right side and 2+ on the left side. Dorsalis pedis pulses are 2+ on the right side and 2+ on the left side. Posterior tibial pulses are 2+ on the right side and 2+ on the left side. Heart sounds: Murmur heard. Systolic murmur is present with a grade of 2/6. Comments: PMI not displaced. 2nd heart sound loud. Pulmonary: Effort: Pulmonary effort is normal. Breath sounds: Normal breath sounds. Abdominal: General: Abdomen is flat. Bowel sounds are normal. Palpations: Abdomen is soft. Tenderness: There is no abdominal tenderness. Musculoskeletal: Right lower leg: No edema. Left lower leg: No edema. Skin: General: Skin is warm. Findings: No rash or wound. Neurological: Mental Status: He is alert and oriented to person, place, and time. Coordination: Coordination is intact. LABS: Glucose (mg/dL) Date Value 03/27/2009 106 Potassium (mmol/L) Date Value 03/27/2009 3.7 Sodium (mmol/L) Date Value 03/27/2009 136 Chloride (mmol/L) Date Value 03/27/2009 106 CO2 (mmol/L) Date Value 03/27/2009 23 Creatinine (mg/dL) Date Value 03/27/2009 0.92 BUN (mg/dL) Date Value 03/27/2009 10 Anion Gap (mmol/L) Date Value 03/27/2009 7 Calcium (mg/dL) Date Value 03/27/2009 7.4 Protein, Total (g/dL) Date Value 03/23/2009 6.6 Albumin (g/dL) Date Value 03/23/2009 4.5 Bilirubin, Total (mg/dL) Date Value 03/23/2009 0.4 Alkaline Phosphatase (U/L) Date Value 03/23/2009 93 AST (U/L) Date Value 03/23/2009 27 ALT (U/L) Date Value 03/23/2009 41 Hemoglobin (g/dL) Date Value 03/27/2009 8.3 Hematocrit (%) Date Value 03/27/2009 24.5 WBC (k/uL) Date Value 03/27/2009 6.85 Cholesterol, Total (mg/dL) Date Value 01/13/2012 234 HDL Cholesterol (mg/dL) Date Value 01/13/2012 45 LDL Cholesterol (mg/dL) Date Value 01/13/2012 154 Triglyceride (mg/dL) Date Value 01/13/2012 176 EKG: DIAGNOSTIC TEST RESULTS: Recent Results (from the past 24 hour(s)) ECG COMPLETE Collection Time: 05/14/22 3:09 PM Result Value Ref Range Ventricular Rate 69 BPM Atrial Rate 69 BPM P-R Interval 170 ms QRS Duration 90 ms QT Interval 408 ms QTC Calculation (Bazett) 437 ms Calculated P [place] 65 degrees Calculated R [place] 71 degrees Calculated T [place] 64 degrees Narrative NAME : ALYX MOTLEY PID : [id number] : 1955 Gender : Male Race : ORD : [id number] Procedure Date : May 14 2022 15:09:20 Edit Date : May 14 2022 15:09:06 Diagnosis: NORMAL SINUS RHYTHM NORMAL ECG WHEN COMPARED WITH ECG OF 23-OCT-2021 14:01, NO SIGNIFICANT CHANGE WAS FOUND Test Reason : Location : [facility] : [facility] Overread By : , Edited By : , Referred By : ADAM VANN Acquired by : , Impression NORMAL SINUS RHYTHM NORMAL ECG WHEN COMPARED WITH ECG OF 23-OCT-2021 14:01, NO SIGNIFICANT CHANGE WAS FOUND ASSESSMENT/PLAN: 1. Palpitations - ICD9: 785.1, ICD10: R00.2 (primary diagnosis) Patient states he has been having a pounding in his chest off and on During today's visit patientcomplains of palpitations. In pictorial form we discussed the pathophysiology of palpitations. We highlighted that there are 2 main types of palpitations; one is an isolated premature contraction andthe other is sustained atrial fibrillation. In pictorial form I discussed both types of arrhythmiasand the symptoms that they can cause. We also asked for factors that can increase palpitations such as adrenaline causing states, lack ofsleep, stress and anxiety. We also discussed lifestyle modifications that can cause palpitations such as taking mediciations such as sinus medicines, caffeine, soda pop and energy drinks. We also asked about factors that made them go away. This seems that they just come and go throughout the day. We also discussed that these may be life-threatening and harmful. If the ejection fraction is greater than 50% and there is no ischemia this process is most likely of benign etiology and the risk of sudden is low. If, however, the ejection fraction is less than 35% sudden and ventricular tachycardia is possible which may lead to sudden . Therefore, an echocardiogram and stress test are required to delineate the morbidity. Reviewed the records looking for the last echocardiogramand stress test. - ECG COMPLETE EKG is sinus there is no arrhythmia seen. Discussed with him with bicarbs of aortic valve it is very common to get palpitations even onset ofatrial fibrillation. Today's EKG does not demonstrate any atrial fibrillation. 2. Mixed hyperlipidemia - ICD9: 272.2, ICD10: E78.2 Patient is currently taking pitavastatin every day. Patients last BW was 03/21/22 and the LDL was 184. Lipids are managed by PCP. 3. ROBIN (obstructive sleep apnea) - ICD9: 327.23, ICD10: G47.33 Patient does not wear a CPAP 4. H/O echocardiogram - ICD9: V15.89, ICD10: Z92.89 Echo done 09/06/21 showed Ef 50-55%, bicuspid aortic valve , aortic root borderline dilated ( 38 mm) ascending aorta mildly dilated (37 mm), mvp, posterior leaflet 5. Non-smoker - ICD9: V49.89, ICD10: Z78.9 Patient has never been a smoker IVida Tech , scribing for Dr. Adam Vann, was present in the room during the examination Follow up in: 9 months Prior to entering the room, I reviewed the last progress note including the diagnosis and plan of action. When available, I then reviewed the last heart catheterization, stress test, echocardiogram and EKG. I proceeded to review the medial therapy and any side effects the patient may have had in the past. I was able to look at the last several EKGs. A new EKG was performed today and an interetation was performed. I reviewed its interpretation with the family and compared it to the previous EKGsthat we have in the medical records. Changes were described to the patient. In a pictorial format; I described the AR and QRS intervals. This was to show the effects of antiarrhythmic therapy on the e lectrical system. I was able to look at the past several EKG's. A new EKG was performed today and interpretation was noted. I reviewed this interpretation with the patient, and the family when available, and compared it to the previous EKG's that we have in the medical record. Since my office visit was carried out with a scribe, while in the exam room I was able to devote one hundred percent of my time in [id number] conversation with the patient. I answered all the questions and explained the diagnosis of palpitations that seem to be innocent. Do not feel at this time a monitor is warranted.. Greater that 51% of my time was spent with [id number] conversation with the patient. I have discussed the recommended treatment, alternative therapies and other options in detail. I've discussed the best benefit and side effects of these recommended treatments. I've attempted to answer all the questions to the patient's satisfaction and understanding. With approval, we would recommend an pursuethe current therapy such as no change. After leaving the exam room, I went back into the patient's chart and coordinated care with my nurse ordering the proper testing and medicinal changes. Letter was performed with voice recognition algorithms and sent to the referring team. The chart was completed. Including the pre-exam, exam and post- exam, the total time spent in the patient's management was greater than 15 minutes I, Dr. Adam Vann, have reviewed and agree with the information in the medical record. Adam Vann DO [facility] NoteHNO ID: [id number] Author: Adam Vann DO Service: ? Author Type: Physician Type: Progress Notes Filed: 10/24/2021 5:02 AM Note Text: Referring Provider: Jeremías Nuñez * Date: October 23, 2021 Chief Complaint: CARD New Patient Consult (heart murmur) HISTORY OF PRESENT ILLNESS: Alyx Motley is a 66 year old male who presents for CARD New Patient Consult (heart murmur). ALLERGIES Allergen Reactions - Bee Sting PAST MEDICAL HISTORY: PAST MEDICAL HISTORY Diagnosis Date - Bicuspid aortic valve - Chronic back pain - COVID-19 02/2020 - Diverticulosis - GERD (gastroesophageal reflux disease) - H/O echocardiogram 09/06/2021 Ef 50-55%, bicuspid aortic valve , aortic root borderline dilated ( 38 mm) ascending aorta mildly dilated (37 mm), mvp, posterior leaflet - History of prostate cancer 2008 - Hypothyroidism - IBS (irritable bowel syndrome) - Mixed hyperlipidemia - Murmur - MVP (mitral valve prolapse) - ROBIN (obstructive sleep apnea) PAST SURGICAL HISTORY Procedure Laterality Date - COLONOSCOPY 2017 polypectomy - COLONOSCOPY FLX DX W/COLLJ SPEC WHEN PFRMD 02/22/2015 Colonoscopy - EGD ([facility]) 10/22/2017 - ESOPHAGOGASTRODUODENOSCOPY TRANSORAL DIAGNOSTIC 02/22/2015 EGD - PROSTATE BIOPSY - PROSTATECTOMY;RADICAL RETROPUBIC 03/26/2009 - TONSILLECTOMY PRIMARY/SECONDARY Tonsillectomy FAMILY HISTORY Problem Relation Age of Onset - Prostate Cancer Maternal Grandfather - Colon Cancer Mother - Ischemic Heart Disease Maternal Grandmother SOCIAL HISTORY: Tobacco Use: Never Alcohol Use: No Drug Use: No 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 - loratadine (CLARITIN) 10 mg tablet Take 1 tablet by mouth as needed. - pantoprazole DR (PROTONIX) 40 mg tablet Take 1 tablet by mouth once daily. - tiZANidine HCl (ZANAFLEX) 4 mg capsule Take 1 capsule by mouth three times daily. - Ranitidine HCl 300 mg tablet Take 1 tablet by mouth daily at bedtime. - levothyroxine (SYNTHROID) 50 mcg tablet Take 50 mcg by mouth daily before breakfast. No current facility-administered medications for this visit. I have personally reviewed the patients past medical history including social, family, surgical, diagnostics, and medications./AB REVIEW OF SYSTEMS: Review of Systems Constitutional: Negative for chills and fatigue. Respiratory: Negative for chest tightness and shortness of breath. Cardiovascular: Negative for chest pain, palpitations and leg swelling. Neurological: Negative for dizziness, syncope, weakness and light-headedness. Hematological: Does not bruise/bleed easily. Psychiatric/Behavioral: Negative for confusion and hallucinations. Vitals: BP 110/84 (BP Site: Left Arm, BP Position: Sitting) Pulse 74 Ht 172.7 cm (5' 8) Wt 74.8 kg (165 lb) BMI 25.09 kg/m? PHYSICAL EXAMINATION: BP 110/84 (BP Site: Left Arm, BP Position: Sitting) Pulse 74 Ht 172.7 cm (5' 8) Wt 74.8 kg (165 lb) BMI 25.09 kg/m? Last 3 Encounter BP Readings: Date: BP: 12/29/2018 157/90 03/12/2015 118/76 01/30/2015 119/76 Last 3 Encounter Pulse Readings: Date: Pulse: 12/29/2018 93 03/12/2015 87 01/30/2015 95 Last 3 Encounter Wt Readings: Date: Wt: 12/29/2018 74.7 kg (164 lb 11.2 oz) 03/12/2015 75.7 kg (166 lb 12.8 oz) 01/30/2015 75.8 kg (167 lb) Physical Exam Vitals reviewed. Constitutional: General: He is not in acute distress. Cardiovascular: Rate and Rhythm: Normal rate and regular rhythm. Pulses: Carotid pulses are 2+ on the right side and 2+ on the left side. Radial pulses are 2+ on the right side and 2+ on the left side. Femoral pulses are 2+ on the right side and 2+ on the left side. Popliteal pulses are 2+ on the right side and 2+ on the left side. Dorsalis pedis pulses are 2+ on the right side and 2+ on the left side. Posterior tibial pulses are 2+ on the right side and 2+ on the left side. Heart sounds: Murmur heard. Systolic murmur is present with a grade of 2/6. Comments: PMI not displaced. 2nd heart sound loud. Pulmonary: Effort: Pulmonary effort is normal. Breath sounds: Normal breath sounds. Abdominal: General: Abdomen is flat. Bowel sounds are normal. Palpations: Abdomen is soft. Tenderness: There is no abdominal tenderness. Musculoskeletal: Right lower leg: No edema. Left lower leg: No edema. Skin: General: Skin is warm. Findings: No rash or wound. Neurological: Mental Status: He is alert and oriented to person, place, and time. Coordination: Coordination is intact. LABS: Glucose (mg/dL) Date Value 03/27/2009 106 Potassium (mmol/L) Date Value 03/27/2009 3.7 Sodium (mmol/L) Date Value 03/27/2009 136 Ch (more content not included)...[facility] Appointment Date:08/06/2021 10:00:00 AM Scheduled Provider:MD JEREMÍAS NUÑEZ JR, MD Location:[facility] Appointment Type:PC KARATE [facility] Appointment Date:08/07/2021 09:30:00 AM Scheduled Provider: Location:[facility] Appointment Type:PC Nurse Lab Appointment Date:08/20/2021 10:30:00 AM Scheduled Provider:LIAN ANTHONY MD Location:[facility] Appointment Type:PC OV Future Scheduled Tests Laboratory* Prostate Specific Antigen 09/14/21 * Prostate Specific Antigen 07/30/21 * Thyroid Stimulating Hormone 02/19/21 * Free T4 08/20/20 * Free T4 02/19/21 Radiology* CT Abdomen and Pelvis w/ contrast 10/17/20 [facility] Evaluation + Plan note Future Appointments Appointment Date:08/20/2021 10:30:00 AM Scheduled Provider:LIAN ANTHONY MD Location:[facility] Appointment Type:PC Wellness Annual Appointment Date:08/29/2021 02:00:00 PM Scheduled Provider:MD JEREMÍAS NUÑEZ JR, MD Location:[facility] Appointment Type:PC OV Follow Up Future Scheduled Tests Laboratory* Prostate Specific Antigen 09/14/21 * Prostate Specific Antigen 07/30/21 * Thyroid Stimulating Hormone 02/19/21 * Free T4 08/20/20 * Free T4 02/19/21 Radiology* CT Abdomen and Pelvis w/ contrast 10/17/20 [facility] Evaluation + Plan note Future Appointments Appointment Date:09/24/2021 11:30:00 AM Scheduled Provider:MD JEREMÍAS NUÑEZ JR, MD Location:[facility] Appointment Type:PC OV Follow Up Appointment Date:11/13/2021 09:30:00 AM Scheduled Provider: Location:[facility] Appointment Type:PC Nurse Lab Appointment Date:11/19/2021 11:00:00 AM Scheduled Provider:LIAN ANTHONY MD Location:[facility] Appointment Type:PC OV Future Scheduled Tests Laboratory* Prostate Specific Antigen 09/14/21 * Prostate Specific Antigen 07/30/21 * Thyroid Stimulating Hormone 02/19/21 * Free T4 02/19/21 * Lipid Profile 08/19/21 Radiology* CT Abdomen and Pelvis w/ contrast 10/17/20 [facility] Evaluation + Plan note Future Appointments Appointment Date:12/06/2021 11:00:00 AM Scheduled Provider:MD JEREMÍAS NUÑEZ JR, MD Location:[facility] Appointment Type:PC OV Appointment Date:11/17/2022 11:10:00 AM Scheduled Provider:ZANDER TAPIA MD Location:UROLOGY Appointment Type:URO OV Future Scheduled Tests Laboratory* Prostate Specific Antigen 11/15/22 * Prostate Specific Antigen 09/14/21 * Prostate Specific Antigen 07/30/21 * Thyroid Stimulating Hormone 02/19/21 * Free T4 02/19/21 * Complete Blood Count 09/12/21 * Complete Blood Count 10/25/21 * Lipid Profile 08/19/21 * Lipid Profile 09/12/21 * Lipid Profile 10/25/21 * Complete Metabolic Panel 09/12/21 * Complete Metabolic Panel 10/25/21 [facility] Evaluation + Plan note Future Appointments Appointment Date:01/17/2022 10:30:00 AM Scheduled Provider:MD JEREMÍAS NUÑEZ JR, MD Location:[facility] Appointment Type:PC OV Follow Up Appointment Date:11/17/2022 11:10:00 AM Scheduled Provider:ZANDER TAPIA MD Location:UROLOGY Appointment Type:URO OV Future Scheduled Tests Laboratory* Prostate Specific Antigen 11/15/22 * Prostate Specific Antigen 09/14/21 * Prostate Specific Antigen 07/30/21 * Thyroid Stimulating Hormone 02/19/21 * Free T4 02/19/21 * Complete Blood Count 09/12/21 * Complete Blood Count 10/25/21 * Complete Blood Count 12/06/21 * Lipid Profile 08/19/21 * Lipid Profile 09/12/21 * Lipid Profile 10/25/21 * Lipid Profile 12/06/21 * Complete Metabolic Panel 09/12/21 * Complete Metabolic Panel 10/25/21 * Complete Metabolic Panel 12/06/21 [facility] Evaluation + Plan note Future Appointments Appointment Date:03/25/2022 10:30:00 AM Scheduled Provider:MD JEREMÍAS NUÑEZ JR, MD Location:[facility] Appointment Type:PC OV Follow Up Appointment Date:11/17/2022 11:10:00 AM Scheduled Provider:ZANDER TAPIA MD Location:UROLOGY Appointment Type:URO OV Future Scheduled Tests Laboratory* Prostate Specific Antigen 11/15/22 * Prostate Specific Antigen 09/14/21 * Prostate Specific Antigen 07/30/21 * Complete Blood Count 09/12/21 * Complete Blood Count 10/25/21 * Complete Blood Count 12/06/21 * Lipid Profile 08/19/21 * Lipid Profile 09/12/21 * Lipid Profile 10/25/21 * Lipid Profile 12/06/21 * Complete Metabolic Panel 09/12/21 * Complete Metabolic Panel 10/25/21 * Complete Metabolic Panel 12/06/21 [facility] Evaluation + Plan note Future Appointments Appointment Date:06/25/2022 11:30:00 AM Scheduled Provider:MD JEREMÍAS NUÑEZ JR, MD Location:[facility] Appointment Type:PC OV Follow Up Appointment Date:11/17/2022 11:10:00 AM Scheduled Provider:ZANDER TAPIA MD Location:UROLOGY Appointment Type:URO OV Future Scheduled Tests Laboratory* Prostate Specific Antigen 11/15/22 * Prostate Specific Antigen 09/14/21 * Prostate Specific Antigen 07/30/21 * Complete Blood Count 09/12/21 * Complete Blood Count 10/25/21 * Complete Blood Count 12/06/21 * Lipid Profile 08/19/21 * Lipid Profile 09/12/21 * Lipid Profile 10/25/21 * Lipid Profile 12/06/21 * Complete Metabolic Panel 09/12/21 * Complete Metabolic Panel 10/25/21 * Complete Metabolic Panel 12/06/21 [facility] Evaluation + Plan note Future Appointments Appointment Date:11/07/2022 10:30:00 AM Scheduled Provider:MD JEREMÍAS NUÑEZ JR, MD Location:[facility] Appointment Type:PC OV Follow Up Appointment Date:11/17/2022 11:10:00 AM Scheduled Provider:ZANDER TAPIA MD Location:UROLOGY Appointment Type:URO OV Future Scheduled Tests Laboratory* Prostate Specific Antigen 11/15/22 * Prostate Specific Antigen 09/14/21 * Lipid Profile 10/03/22 * Complete Metabolic Panel 10/03/22 [facility] Evaluation + Plan note Future Appointments Appointment Date:11/07/2022 10:30:00 AM Scheduled Provider:MD JEREMÍAS NUÑEZ JR, MD Location:[facility] Appointment Type:PC OV Follow Up Appointment Date:11/17/2022 11:10:00 AM Scheduled Provider:ZANDER TAPIA MD Location:UROLOGY Appointment Type:URO OV Future Scheduled Tests Laboratory* Prostate Specific Antigen 11/15/22 [facility] Evaluation + Plan note Future Appointments Appointment Date:01/07/2023 11:30:00 AM Scheduled Provider:MD JEREMÍAS NUÑEZ JR, MD Location:[facility] Appointment Type:PC OV Follow Up Appointment Date:11/25/2023 10:40:00 AM Scheduled Provider:BOBBY PINEDA Location:UROLOGY Appointment Type:URO OV Future Scheduled Tests Laboratory* Prostate Specific Antigen 11/15/22 * Prostate Specific Antigen 11/18/23 [facility] Evaluation + Plan note Future Appointments Appointment Date:02/10/2023 09:30:00 AM Scheduled Provider:LIAN ANTHONY MD Location:[facility] Appointment Type:PC OV Appointment Date:11/25/2023 10:40:00 AM Scheduled Provider:BOBBY PINEDA Location:UROLOGY Appointment Type:URO OV Future Scheduled Tests Laboratory* Prostate Specific Antigen 11/15/22 * Prostate Specific Antigen 11/18/23 [facility] Evaluation + Plan note Future Appointments Appointment Date:05/04/2023 08:30:00 AM Scheduled Provider: Location:[facility] Appointment Type:PC Nurse Lab Appointment Date:05/12/2023 09:30:00 AM Scheduled Provider:LIAN ANTHONY MD Location:[facility] Appointment Type:PC OV Appointment Date:11/25/2023 10:40:00 AM Scheduled Provider:BOBBY PINEDA Location:UROLOGY Appointment Type:URO OV Future Scheduled Tests Laboratory* Prostate Specific Antigen 11/15/22 * Prostate Specific Antigen 11/18/23 * Lipid Profile 05/13/23 * Vitamin D Level 02/10/23 * Complete Metabolic Panel 05/13/23 [facility] + Plan note Future Appointments Appointment Date:05/12/2023 09:30:00 AM Scheduled Provider:LIAN ANTHONY MD Location:[facility] Appointment Type:PC OV Appointment Date:11/25/2023 10:40:00 AM Scheduled Provider:BOBBY PINEDA Location:UROLOGY Appointment Type:URO OV Future Scheduled Tests Laboratory* Prostate Specific Antigen 11/18/23 [facility] Evaluation + Plan note Future Appointments Appointment Date:07/27/2023 11:00:00 AM Scheduled Provider: Location:[facility] Appointment Type:NM Hepatobiliary Duct System Imaging ([facility] Appointment Date:09/01/2023 09:30:00 AM Scheduled Provider:LIAN ANTHONY MD Location:[facility] Appointment Type:PC OV Appointment Date:11/25/2023 10:40:00 AM Scheduled Provider:BOBBY PINEDA Location:UROLOGY Appointment Type:URO OV Future Scheduled Tests Laboratory* Prostate Specific Antigen 11/18/23 * Thyroid Stimulating Hormone 08/10/23 * Complete Blood Count 05/12/23 * Lipid Profile 08/10/23 * Complete Metabolic Panel 08/10/23 Radiology* NM Hepatobiliary Duct System Imaging 07/27/23 [facility] Ever[facility] + Plan note Future Appointments Appointment Date:09/01/2023 09:30:00 AM Scheduled Provider:LIAN ANTHONY MD Location:[facility] Appointment Type:PC OV Appointment Date:11/25/2023 10:40:00 AM Scheduled Provider:BOBBY PINEDA Location:UROLOGY Appointment Type:URO OV Future Scheduled Tests Laboratory* Prostate Specific Antigen 11/18/23 Radiology* NM Hepatobiliary Duct System Imaging 07/27/23 [facility] Evaluation + Plan note Future Appointments Appointment Date:11/17/2023 09:30:00 AM Scheduled Provider:LIAN ANTHONY MD Location:[facility] Appointment Type:PC OV Appointment Date:11/25/2023 10:40:00 AM Scheduled Provider:BOBBY PINEDA Location:UROLOGY Appointment Type:URO OV Future Scheduled Tests Laboratory* Prostate Specific Antigen 11/18/23 Radiology* NM Hepatobiliary Duct System Imaging 07/27/23 [facility] Evaluation + Plan note Future Appointments Appointment Date:02/18/2024 10:30:00 AM Scheduled Provider:LIAN ANTHONY MD Location:[facility] Appointment Type:PC OV Appointment Date:11/24/2024 10:40:00 AM Scheduled Provider:BOBBY PINEDA Location:UROLOGY Appointment Type:URO OV Future Scheduled Tests Laboratory* Prostate Specific Antigen 11/18/23 * Prostate Specific Antigen 11/24/24 * Complete Blood Count 11/19/23 * Lipid Profile 02/19/24 * Complete Metabolic Panel 02/19/24 Radiology* NM Hepatobiliary Duct System Imaging 07/27/23 [facility] Evaluation + Plan note Future Appointments Appointment Date:02/24/2024 10:00:00 AM Scheduled Provider:LIAN ANTHONY MD Location:[facility] Appointment Type:PC Wellness Annual Appointment Date:11/24/2024 10:40:00 AM Scheduled Provider:BOBBY PINEDA Location:UROLOGY Appointment Type:URO OV Future Scheduled Tests Laboratory* Prostate Specific Antigen 11/18/23 * Prostate Specific Antigen 11/24/24 Radiology* NM Hepatobiliary Duct System Imaging 07/27/23 [facility] Evaluation + Plan note Future Appointments Appointment Date:11/24/2024 10:40:00 AM Scheduled Provider:BOBBY PINEDA Location:UROLOGY Appointment Type:URO OV Appointment Date:02/28/2025 10:00:00 AM Scheduled Provider:LIAN ANTHONY MD Location:[facility] Appointment Type: Wellness Medicare Future Scheduled Tests Laboratory* Prostate Specific Antigen 11/18/23 * Prostate Specific Antigen 11/24/24 [facility] Evaluation + Plan note Future Appointments Appointment Date:11/09/2024 11:00:00 AM Scheduled Provider: Location:[facility] Appointment Type:PT [facility] Appointment Date:11/16/2024 11:00:00 AM Scheduled Provider: Location:[facility] Appointment Type:PT [facility] Appointment Date:11/24/2024 10:40:00 AM Scheduled Provider:BOBBY PINEDA Location:UROLOGY Appointment Type:URO OV Appointment Date:02/28/2025 10:00:00 AM Scheduled Provider:LIAN ANTHONY MD Location:[facility] Appointment Type: Wellness Medicare Future Scheduled Tests Laboratory* Prostate Specific Antigen 11/18/23 * Prostate Specific Antigen 11/24/24 [facility] Evaluation + Plan note Future Appointments Appointment Date:11/29/2024 09:30:00 AM Scheduled Provider:LIAN ANTHONY MD Location:[facility] Appointment Type:PC OV Appointment Date:02/28/2025 10:00:00 AM Scheduled Provider:LIAN ANTHONY MD Location:[facility] Appointment Type: Wellness Medicare Appointment Date:11/24/2025 10:40:00 AM Scheduled Provider:BOBBY PINEDA Location:UROLOGY Appointment Type:URO OV Future Scheduled Tests Laboratory* Prostate Specific Antigen 11/18/23 * Prostate Specific Antigen 11/24/24 * Prostate Specific Antigen 11/24/25 [facility] Evaluation note* Diagnosis Onset Date Resolution Status Belching acute Change in stool chronic [facility] Work Phone: Evaluation note* Diagnosis Palpitations- Primary Mixed hyperlipidemia ROBIN (obstructive sleep apnea) Obstructive sleep apnea (adult) (pediatric) H/O echocardiogram Other specified personal history presenting hazards to health Non-smoker Other specified conditions influencing health status [facility] Diagnosis Mixed hyperlipidemia- Primary ROBIN (obstructive sleep apnea) Obstructive sleep apnea (adult) (pediatric) H/O echocardiogram Other specified personal history presenting hazards to health Non-smoker Other specified conditions influencing health status Palpitations [facility] Diagnosis Onset Date Resolution Status Inguinal hernia acute Pancreatic insufficiency acu te [facility] Work Phone: Evaluation note* Diagnosis Onset Date Resolution Status Inguinal hernia acute Pancreatic insufficiency acu te Abdominal pain noneactive [facility] Work Phone: Evaluation note* Diagnosis MVP (mitral valve prolapse)- Primary Mitral valve disorders Murmur Undiagnosed cardiac murmurs Mixed hyperlipidemia Bicuspid aortic valve Congenital insufficiency of aortic valve ROBIN (obstructive sleep apnea) Obstructive sleep apnea (adult) (pediatric) H/O echocardiogram Other specified personal history presenting hazards to health Non-smoker Other specified conditions influencing health status documented in this encounter [facility] course Narrative No data available for this section [facility] Hospital Discharge instructions No data available for this section [facility] Hospital Discharge instructionsAmbulatory Orders* PT Referral Location: None Selected [facility] Work Phone: Progress note No data available for this section [facility] Reason for referral (narrative)* Outpatient Procedure (Routine) - Closed Specialty Diagnoses / Procedures Referred By Contac t [facility] Diagnoses Palpitations Procedures ECG COMPLETE ECG ROUTINE ECG W/LEAST 12 LDS W/I&R Adam Vann DO [address] [place] [address] [facility] [address] [address] Referral ID Status Reason Start Date Expiration Date V isits Requested Visits Authorized [id number] Closed Auto-Generate d Referral 05/13/2022 05/13/2023 1 1 [facility] for referral (narrative)* Outpatient Procedure (Routine) - Pending Review Specialty Diagnoses / Procedures Referred By Contac t Referred To Contact [facility] [place] Diagnoses Palpitations Procedures ECG COMPLETE ECG ROUTINE ECG W/LEAST 12 LDS W/I&R Adam Vann DO [address] [place] [address] [facility] [address] [address] Referral ID Status Reason Start Date Expiration Date Visits Requested Visits Authorized [id number] Pending Review Auto-Generat ed Referral 02/11/2023 02/11/2024 1 1 [facility] for referral (narrative)* Outpatient Procedure (Routine) - New Request Specialty Diagnoses / Procedures Referred By Contac t Referred To Contact [facility] [place] Diagnoses MVP (mitral valve prolapse) Procedures ECG COMPLETE ECG ROUTINE ECG W/LEAST 12 LDS W/I&R Adam Vann DO [address] [place] [address] [facility] [address] [address] Referral ID Status Reason Start Date Expiration Date Visits Requested Visits Authorized [id number] New Request Auto-Generat ed Referral 02/12/2024 02/11/2025 1 1 [facility] Chief Complaint and Reason for Visit Chief Complaint BELCHING INT LABS E ORDER Reason for Visit Belching Change in stool Chief Complaint 6 M FU RT ANKLE FX Reason for Visit Inguinal hernia Pancreatic insufficiency Chief Complaint Abdominal pain Reason for Visit Inguinal hernia Pancreatic insufficiency Abdominal pain Chief Complaint Admit Date RIGHT ELBOW/WRIST July 18, 2024 10: 59am RM 1 July 18, 2024 11: 42am RIGHT SHOULDER November 14, 2024 10 :43am Reason for Visit Admit Date Medial epicondylitis, right elbow July 18, 2024 10:59am Right wrist pain July 18, 2024 10: 59am Bone lesion November 14, 2024 10 :43am Contusion of bone November 14, 2024 10 :43am Right shoulder pain November 14, 2024 10 :43am Summary Purpose Family History No Family History Records Found No data available for this section No data available for this section No data available for this section No data available for this section No data available for this section No data available for this section No data available for this section No data available for this section No data available for this section No Family History Records Found No data available for this section No data available for this section No Family History Records Found No data available for this section No data available for this section No data available for this section No data available for this section No Family History Records Found No data available for this section No Family History Records FoundNo Family History Records Found Advance Directives No Advanced Directives Records FoundNo Advanced Directives Records FoundNo Advanced Directives Records FoundNo Advanced Directives Records FoundNo Advanced Directives Records FoundNo Advanced Directives Records Found Additional Source Comments Care Team (unrecognized sect ion and content) Child Life Specialist Relationship Specialty Start Date End Date Cara Hansen [address] [place] [address] PCP - General 01/30/15 Child Life Specialist Relationship Specialty Start Date End Date Cara Hansen [address] [place] [address] PCP - General 01/30/15 Team Status: Active Member Role Status Dates Dr. Lian Anthony MD Family Provider Active Dr. Lian Anthony MD Primary Care Provider Active Team Status: Inactive Member Role Status Dates Dr. Lian Anthony MD Primary Care Provider, Referjamin g Provider Active Dr. Geo Deleon DO Attending Provider Active Team Status: Inactive Member Role Status Dates Dr. Lian Anthony MD Primary Care Provider Active Aleksandar CAMPBELL PA-C Attending Provider, Referring Asher blackwell Active Dr. Stephania Jordan DPM Other Provider Active Team Status: Inactive Member Role Status Dates Dr. Lian Anthony MD Primary Care Provider Active Dr. Geo Deleon DO Attending Provider, Referring Provider Active Team Status: Active Member Role Status Dates Dr. Lian Anthony MD Primary Care Provider Active Dr. Geo Deleon DO Attending Provider, Referring Provider Active Child Life Specialist Relationship Specialty Start Date End Date Lian Anthony MD [address] [place] [id number] PCP - General Family Medicine 02/12/24 Team Status: Active Member Role/Relationship Status Dates Dr. Lian Anthony MD Family Provider Active Dr. Lian Anthony MD Primary Care Provider Active Team Status: Inactive Member Role/Relationship Status Dates Dr. Lian Anthony MD Primary Care Provider Active Start: July 18, 2024 End: July 18, 2024 Dr. Lian Anthony MD Referring Provider Active Start: July 18, 2024 End: July 18, 2024 Dr. Waqar Woodruff DO Attending Provider Active Start: July 18, 2024 End: July 18, 2024 Team Status: Inactive Member Role/Relationship Status Dates Dr. Lian Anthony MD Primary Care Provider Active Start: July 18, 2024 End: July 18, 2024 Dr. Bull Price MD Attending Provider Active S tart: July 18, 2024 End: July 18, 2024 Team Status: Inactive Member Role/Relationship Status Dates Dr. Lian Anthony MD Primary Care Provider Active Start: November 14, 2024 End: November 14, 2024 Dr. Lian Anthony MD Referring Provider Active Start: November 14, 2024 End: November 14, 2024 Torsten Lindo MD Attending Provider Active St art: November 14, 2024 End: November 14, 2024 Goals (unrecognized section and content) Goals may be documented in a n alternate section Care Team (unrecognized sect ion and content) Care Team Personnel Name: MD JEREMÍAS NUÑEZ JR, MD Position: P4 Physician - Primary Care Member Role: Primary Care Physician Address: Address: [address] [place] [id number] Care Team Related Persons Name: MOLLY MOTLEY Address: Home [address] [place], [place] [id number] Care Team Personnel Name: MD JEREMÍAS NUÑEZ JR, MD Position: P4 Physician - Primary Care Med Service: Active Provider Member Role: Primary Care Physician Address: Address: [address] [place] [address] Care Team Related Persons Name: MOLLY MOTLEY Address: Home [address] [place], [place] [id number] Care Team Personnel Name: MD JEREMÍAS NUÑEZ JR, MD Position: P4 Physician - Primary Care Member Role: Primary Care Physician Address: Address: [address] [place] [address] Care Team Related Persons Name: MOLLY MOTLEY Address: [place] [address] [place], [place] [id number] Source Comments (unrecognize d section and content) In the event this informatio n is protected by the Federal Confidentiality of Alcohol and Drug Abuse Patient Records regulations: The Federal rules restrict any use of the information to criminally investigate or prosecute any alcohol or drug abuse patient.[facility] the event this information is protected by the Federal Confidentiality of Alcohol and Drug Abuse Patient Records regulations: The Federal rules restrict any use of the information to criminally investigate or prosecute any alcohol or drug abuse patient.[facility] the event this information is protected by the Federal Confidentiality of Alcohol and Drug Abuse Patient Records regulations: The Federal rules restrict any use of the information to criminally investigate or prosecute any alcohol or drug abuse patient.[facility] Reason for Visit (unrecogniz ed section and content) Reason Comments Established Patient Follow-Up Palpitatio ns Reason Comments Established Patient Follow-Up Palpitatio ns, murmur Reason Comments Established Patient Follow-Up Murmur (unrecognized sect ion and content) No Status Records FoundNo Status Records FoundNo Status Records FoundNo Status Records FoundNo Status Records FoundNo Status Records Found INFORMATION SOURCE (unrecogn ized section and content) DATE CREATED AUTHOR 06/01/2022 [facility] DATE CREATED AUTHOR AUTHOR'S ORGANIZ ATION 11/30/2023 [facility] DATE CREATED AUTHOR AUTHOR'S ORGANIZ ATION 02/26/2024 [facility] DATE CREATED AUTHOR AUTHOR'S ORGANIZ ATION 11/19/2024 [facility] DATE CREATED AUTHOR AUTHOR'S ORGANIZ ATION 11/26/2024 [facility] DATE CREATED AUTHOR AUTHOR'S ORGANIZ ATION 12/04/2024 [facility] FOR RECORDS PERTAINING TO PATIENTS WHO ARE OR HAVE BEEN ENROLLED IN A CHEMICAL DEPENDENCY/SUBSTANCEABUSE PROGRAM, SOME INFORMATION MAY BE OMITTED. This clinical summary was aggregated from multiple sources. Caution should be exercised in using it in the provision of clinical care. This summary normalizes information from multiple sources, and as a consequence, information in this document may materially change the coding, format and clinical context of patient data. In addition, data may be omitted in some cases. CLINICAL DECISIONS SHOULD BE BASED ON THE PRIMARY CLINICAL RECORDS. [employer] [facility]. provides no warranty or guarantee of the accuracy or completeness of information in this document.
== END | disposition home or self-care (01) ==
PROVIDERS: PCP Family Medicine; Referring Provider Orthopaedic Surgery Sports Medicine; Visit Provider Orthopaedic Surgery Sports Medicine
DX: M25.511 Pain in right shoulder (principal)
CPT/HCPCS: 73223; A9575; A4216